=== PATIENT | male | born 1935 | race Caucasian/White ===

== ENCOUNTER → 2017-12-21 13:52 | Outpatient (CLI) | payer MEDICARE, OTHER, SELFPAY | PROVIDERS: Family Provider Internal Medicine; PCP Internal Medicine; Visit Provider Internal Medicine Cardiovascular Disease | DX: I11.9 Hypertensive heart disease without heart failure (principal); I35.2 Nonrheumatic aortic (valve) stenosis with insufficiency; I44.2 Atrioventricular block, complete; E78.5 Hyperlipidemia, unspecified | CPT/HCPCS: 93306 ==

== ENCOUNTER → 2018-02-08 14:31 | Outpatient (CLI) | payer MEDICARE, OTHER, SELFPAY ==
--- NOTE | 2018-02-08 14:36 | RAD_ITS ---
STUDY: X-RAY - ABDOMEN/PELVIS REASON FOR EXAM: Male, 82 years old. BOWEL INCONTINENCE X1 YR, NO OTHER COMPLAINTS TECHNIQUE: AP supine and upright views of the abdomen and pelvis. COMPARISON: None. FINDINGS: Normal visualized lung bases. There is an unremarkable bowel gas pattern. There is no demonstrated free abdominal air. The visualized liver, spleen and kidneys are grossly normal in size and morphology. Normal soft tissue structures. Normal visualized osseous structures. RAD/Abd Inc Decub and/or Erect IMPRESSION: Normal x-ray examination of the abdomen and pelvis. Electronically Signed: Patrick Lopez MD at 13:08 EDT Tel , Service support ,
[2018-02-08 17:17] LABS: Absolute Lymphocyte Count 1.95 X10^3/ul (0.83-4.51); Absolute Neutrophil Count 4.3 X10^3/uL (2.0-7.7); Basophil# 0.03 X10^3/uL; Basophil% 0.4 % (0-1); Eosinophil# 0.27 X10^3/uL; Eosinophils% 3.6 % (0-5); Hematocrit 40.9 % (40-54); Hemoglobin 13.6 g/dl (13.0-16.5); Lymphocyte # 1.95 X10^3/ul (4.0); Lymphocyte % 26.1 % (19-41); Mean Corp Hgb Conc 33.3 g/gl (32-36); Mean Corpuscular Hgb 33.5 pg (27.0-32.0); Mean Corpuscular Volume 100.7 fL (80-94); Mean Platelet Vol. 12.3 fl (6.2-12.0); Monocyte# 0.92 X10^3/uL; Monocyte% 12.3 % (0-10); Neutrophil # 4.28 X10^3/uL (2.7-7.7); Neutrophil % 57.3 % (47-70); Platelet Count 186 K/mm3 (150-450); RBC Distribution Width CV 15.1 % (11.6-14.6); RBC Distribution Width SD 55.6 fl (35.1-43.9); Red Blood Count 4.06 M/mm3 (4.6-6.2); White Blood Count 7.5 K/mm3 (4.4-11.0)
[2018-02-08 17:25] LABS: POSITIVE COUNT NO; POSITIVE DIFFERENTIAL NO; POSITIVE MORPHOLOGY NO
[2018-02-08 17:28] LABS: ALB/GLOB Ratio 0.9 RATIO (0.9-2.4); AST(SGOT) 21 U/L (15-37); Alanine Aminotransfer ALT/SGPT 19 U/L (16-61); Albumin, Serum 3.6 g/dL (3.2-5.0); Alkaline Phosphatase 73 U/L (45-117); Anion Gap 7 (5-15); BUN 12 mg/dL (7-18); BUN/Creat Ratio 15.1 RATIO (10-20); Calcium,Total 8.8 mg/dL (8.5-10.1); Chloride 107 mmol/L (98-107); EST Glomerular Filtration Rate 99 mL/min (>60); Est Glom Filt Rate - Afr Amer 120 mL/min (>60); Glucose 142 mg/dL (74-106); Potassium 4.3 mmol/L (3.5-5.1); Protein, Total 7.6 g/dL (6.4-8.2); Sodium Level 142 mmol/L (136-145); Vitamin D,25 Hydroxy 25.8 ng/mL (29.95-100.01)
== END ==
PROVIDERS: Family Provider Family Medicine Geriatric Medicine; PCP Family Medicine Geriatric Medicine; Referring Provider Family Medicine Geriatric Medicine; Visit Provider Family Medicine Geriatric Medicine
DX: E55.9 Vitamin D deficiency, unspecified (principal); I10 Essential (primary) hypertension; R15.9 Full incontinence of feces
CPT/HCPCS: 36415; 74019; 80053; 82306; 84443; 85025

== ENCOUNTER → 2018-02-14 08:07 | Outpatient (CLI) | payer MEDICARE, OTHER, SELFPAY ==
--- NOTE | 2018-02-14 08:15 | US_ITS ---
PROCEDURES: ULTRASOUND AORTA REASON FOR EXAM: Male, 82 years old. Evaluate for abdominal aortic aneurysm. TECHNIQUE: Ultrasound evaluation of the aorta was performed with real-time and static garcia-scale imaging. COMPARISON: None. FINDINGS: Proximal aorta 2.8 x 2.7 cm. Mid aorta 2.0 x 3.0 cm. Distal aorta 2.9 x 2.5 cm. Right common iliac 10 x 12 mm. Left common iliac 11 x 16 mm. Effort chronic plaque seen throughout the aorta and within the iliac arteries. On most recent prior CT imaging of the abdomen and pelvis of 2012 there was circumferential calcification of the wall of the aorta, calcification of the wall of the common iliac arteries. US/Aorta IMPRESSION: No evidence of aorto iliac aneurysm. Electronically Signed: Quinn Martinez, at 17:35 EDT Tel , Service support ,
== END ==
PROVIDERS: Family Provider Internal Medicine; PCP Internal Medicine; Referring Provider Family Medicine Geriatric Medicine; Visit Provider Family Medicine Geriatric Medicine
DX: I71.4 Abdominal aortic aneurysm, without rupture (principal)
CPT/HCPCS: 76775

== ENCOUNTER → 2018-04-03 13:16 | Outpatient (CLI) | payer MEDICARE, OTHER, SELFPAY ==
--- NOTE | 2018-04-03 13:25 | RAD_ITS ---
STUDY: X-RAY - LUMBAR SPINE REASON FOR EXAM: Male, 82 years old. Low back pain TECHNIQUE: 3 view(s) of the lumbar spine were obtained. COMPARISON: 02/08/2018 FINDINGS: Normal lumbar lordosis. There is no substantial scoliosis. There is a normal alignment of the vertebrae. There is multilevel endplate spondylosis of the lumbar vertebrae. There is multi-level degenerative disc disease with multi-level disc space narrowing. There is no demonstrated fracture. There is atherosclerotic calcification of the abdominal aorta without a demonstrated aneurysm. RAD/Lumbar Spine 2 or 3 Views IMPRESSION: Severe multilevel degenerative disc disease Electronically Signed: Oswald Cooper DO at 13:54 EST Tel , Service support ,
== END ==
PROVIDERS: Family Provider Internal Medicine; PCP Internal Medicine; Referring Provider Anesthesiology Pain Medicine; Visit Provider Anesthesiology Pain Medicine
DX: M51.36 Other intervertebral disc degeneration, lumbar region (principal)
CPT/HCPCS: 72100

== ENCOUNTER → 2018-05-15 13:42 | Outpatient (CLI) | payer MEDICARE, OTHER, SELFPAY ==
[2018-05-15 18:17] LABS: Absolute Lymphocyte Count 1.67 X10^3/ul (0.83-4.51); Absolute Neutrophil Count 4.4 X10^3/uL (2.0-7.7); Basophil# 0.04 X10^3/uL; Basophil% 0.5 % (0-1); Eosinophil# 0.47 X10^3/uL; Eosinophils% 6.1 % (0-5); Hematocrit 40.1 % (40-54); Lymphocyte # 1.67 X10^3/ul (4.0); Lymphocyte % 21.7 % (19-41); Mean Corp Hgb Conc 32.4 g/gl (32-36); Mean Corpuscular Volume 101.8 fL (80-94); Mean Platelet Vol. 11.9 fl (6.2-12.0); Monocyte# 1.04 X10^3/uL; Monocyte% 13.5 % (0-10); Neutrophil # 4.44 X10^3/uL (2.7-7.7); Neutrophil % 57.8 % (47-70); Platelet Count 242 K/mm3 (150-450); RBC Distribution Width CV 14.5 % (11.6-14.6); RBC Distribution Width SD 53.4 fl (35.1-43.9); Red Blood Count 3.94 M/mm3 (4.6-6.2); White Blood Count 7.7 K/mm3 (4.4-11.0)
[2018-05-15 18:23] LABS: POSITIVE COUNT NO; POSITIVE DIFFERENTIAL NO; POSITIVE MORPHOLOGY NO
[2018-05-15 18:30] LABS: ALB/GLOB Ratio 0.8 RATIO (0.9-2.4); AST(SGOT) 15 U/L (15-37); Alanine Aminotransfer ALT/SGPT 17 U/L (16-61); Albumin, Serum 3.5 g/dL (3.2-5.0); Alkaline Phosphatase 79 U/L (45-117); Anion Gap 8 (5-15); BUN 12 mg/dL (7-18); BUN/Creat Ratio 15.2 RATIO (10-20); Calcium,Total 8.8 mg/dL (8.5-10.1); Chloride 104 mmol/L (98-107); Creatinine, Serum 0.79 mg/dL (0.70-1.30); EST Glomerular Filtration Rate 100 mL/min (>60); Est Glom Filt Rate - Afr Amer 120 mL/min (>60); Globulin 4.2 g/dL (2.2-4.2); Glucose 125 mg/dL (74-106); Protein, Total 7.7 g/dL (6.4-8.2); Sodium Level 140 mmol/L (136-145); Thyroid Stim Hormone (TSH) 2.73 uIU/mL (0.358-3.74)
== END ==
PROVIDERS: Family Provider Internal Medicine; PCP Internal Medicine; Visit Provider Family Medicine Geriatric Medicine
DX: E55.9 Vitamin D deficiency, unspecified (principal); I10 Essential (primary) hypertension
CPT/HCPCS: 36415; 80053; 82306; 84443; 85025

== ENCOUNTER → 2018-05-19 15:06 | Outpatient (CLI) | payer MEDICARE, OTHER, SELFPAY ==
--- NOTE | 2018-05-19 15:09 | CT_ITS ---
STUDY: CT ABDOMEN AND PELVIS WITH CONTRAST REASON FOR EXAM: Male, 83 years old. Abdomen pain RADIATION DOSAGE (If Supplied By Facility): CTDIvol = ( 18.45 ) mGy, DLP = ( 1062.66 ) mGycm TECHNIQUE: Transaxial images were obtained from the dome of the diaphragm to the symphysis pubis without oral contrast. 100 ml of Isovue 300 contrast was administered. Sagittal and coronal images were reconstructed. Individualized dose optimization techniques were used for this CT. COMPARISON: None. FINDINGS: There are chronic interstitial fibrotic changes of the lung bases. The visualized portions of the heart are within normal limits. Normal liver. There is non-visualization of the gallbladder, which may be secondary to either contraction or a prior cholecystectomy. Normal spleen. Normal pancreas. Normal bilateral adrenal glands. Bilateral renal cysts are noted the largest measures 12 cm is in the right kidney. Normal visualized stomach. Normal small intestine. There are multiple colonic diverticula consistent with diverticulosis. There is thickening of the wall of the sigmoid colon may represent diverticulitis or neoplastic process. The appendix is visualized and appears normal. There is diffuse atherosclerotic calcification of the abdominal aorta with elongation and tortuosity, but without a demonstrated aneurysm. Normal inferior vena cava. Normal retroperitoneum. Normal urinary bladder. Normal abdominal wall. Normal . CT/Abdomen/Pelvis WITH Contrast IMPRESSION: There is thickening of the wall of the sigmoid colon may represent diverticulitis or neoplastic process. N.B. : Kat (YUDY), AA, confirmed on 05/22/2018 22:55:01 (ET) that the referring physician received the results and did not require a verbal consultation. Electronically Signed: Patrick Lopez MD at 3:55 EST Tel , Service support ,
== END ==
PROVIDERS: Family Provider Family Medicine Geriatric Medicine; PCP Family Medicine Geriatric Medicine; Referring Provider Family Medicine Geriatric Medicine; Visit Provider Family Medicine Geriatric Medicine
DX: R10.9 Unspecified abdominal pain (principal)
CPT/HCPCS: 74177; Q9967

== ENCOUNTER → 2018-05-25 13:24 | Outpatient (CLI) | payer MEDICARE, OTHER, SELFPAY ==
[2018-05-25 14:02] LABS: Absolute Lymphocyte Count 1.63 X10^3/ul (0.83-4.51); Absolute Neutrophil Count 7.5 X10^3/uL (2.0-7.7); Basophil# 0.01 X10^3/uL; Basophil% 0.1 % (0-1); Eosinophil# 0.02 X10^3/uL; Eosinophils% 0.2 % (0-5); Hematocrit 41.2 % (40-54); Hemoglobin 13.2 g/dl (13.0-16.5); Lymphocyte # 1.63 X10^3/ul (4.0); Lymphocyte % 16.2 % (19-41); Mean Corpuscular Hgb 32.5 pg (27.0-32.0); Mean Corpuscular Volume 101.5 fL (80-94); Mean Platelet Vol. 11.4 fl (6.2-12.0); Monocyte# 0.89 X10^3/uL; Monocyte% 8.8 % (0-10); Neutrophil # 7.47 X10^3/uL (2.7-7.7); Neutrophil % 74.2 % (47-70); Platelet Count 235 K/mm3 (150-450); RBC Distribution Width CV 14.6 % (11.6-14.6); RBC Distribution Width SD 54.1 fl (35.1-43.9); Red Blood Count 4.06 M/mm3 (4.6-6.2); White Blood Count 10.1 K/mm3 (4.4-11.0)
[2018-05-25 14:06] LABS: POSITIVE COUNT NO; POSITIVE DIFFERENTIAL NO; POSITIVE MORPHOLOGY NO
[2018-05-25 14:17] LABS: Anion Gap 9 (5-15); BUN 17 mg/dL (7-18); BUN/Creat Ratio 22.5 RATIO (10-20); Calcium,Total 9.1 mg/dL (8.5-10.1); Chloride 104 mmol/L (98-107); Creatinine, Serum 0.76 mg/dL (0.70-1.30); EST Glomerular Filtration Rate 105 mL/min (>60); Est Glom Filt Rate - Afr Amer 127 mL/min (>60); Glucose 169 mg/dL (74-106); Potassium 4.1 mmol/L (3.5-5.1); Sodium Level 139 mmol/L (136-145)
--- OUTSIDE RECORDS SUMMARY | 2018-07-30 07:55 | XMS RPT_ITS ---
:1935 Author Organization OHIP Support Name Relationship Address Phone BENITO XAVIER Unavailable Unavailable + [place] [address] R Unavailable Unavailable Unavailable ROBYN, BENITO Unavailable Unavailable + [place] [address] R Unavailable Unavailable Unavailable ROBYN, BENITO Unavailable Unavailable + [place] [address] R Unavailable Unavailable Unavailable ROBYN, BENITO Unavailable Unavailable + [place] [address] R Unavailable Unavailable Unavailable ROBYN, BENITO Unavailable Unavailable + [place] [address] R Unavailable Unavailable Unavailable ROBYN, BENITO Unavailable Unavailable + [place] [address] R Unavailable Unavailable Unavailable ROBYN, BENITO Unavailable Unavailable + [place] [address] R Unavailable Unavailable Unavailable R Unavailable Unavailable Unavailable R Unavailable Unavailable Unavailable ROBYN, LIV Unavailable [address] + [place] [address] R Unavailable Unavailable Unavailable R Unavailable Unavailable Unavailable ROBYN, LIV Unavailable [address] + [place] [address] ROBYN, BENITO Unavailable [address] + [address] [place] [address] R Unavailable Unavailable Unavailable ROBYN, LIV Unavailable [address] + [place] [address] ROBYN, BENITO Unavailable [address] + [address] [place] [address] R Unavailable Unavailable Unavailable ROBYN, LIV Unavailable [address] + [place] [address] ROBYN, BENITO Unavailable [address] [phone] [place] [address] R Unavailable Unavailable Unavailable Care Team Providers Name Role Phone STEVEN KOCH Attending Unavailable STEVEN KOCH Referring Unavailable KOCHSTEVEN GARCIA Attending Unavailable STEVEN KOCH H Referring Unavailable Kwaku, Bishop Chi Attending Unavailable Koch, Steven Primary Care Unavailable Kwaku, Bishop Chi Attending Unavailable Kwaku, Bishop Chi Referring Unavailable Kwaku, Bishop Chi Primary Care Unavailable Kwaku, Bishop Chi Attending Unavailable Kwaku, Bishop Chi Primary Care Unavailable Kwaku, Bishop Chi Attending Unavailable Kwaku, Bishop Chi Referring Unavailable Kwaku, Bishop Chi Primary Care Unavailable Vika Cotto Attending Unavailable Koch, Steven Referring Unavailable Karol Anderson Attending Unavailable Tobinispagerry, Ramirez Attending Unavailable Koch, Steven Referring Unavailable Koch, Steven Primary Care Unavailable Moodispagerry, Ramirez Attending Unavailable Moodispaw, Ramirez Referring Unavailable Koch, Steven Primary Care Unavailable Moodispaw, Ramirez Attending Unavailable Moodispaw, Ramirez Referring Unavailable Kwaku, Bishop Chi Attending Unavailable Kwaku, Bishop Chi Referring Unavailable Kwaku, Bishop Chi Primary Care Unavailable Kwaku, Bishop Chi Attending Unavailable Kwaku, Bishop Chi Referring Unavailable Koch, Steven Primary Care Unavailable Basali Ayman Attending Unavailable Basali, Ayman Referring Unavailable Koch, Steven Primary Care Unavailable Vika Cotto Attending Unavailable Armaan, Steven Referring Unavailable Armaan, Steven Primary Care Unavailable PROBLEMS PROBLEMS DATE TYPE CONDITION / CODE ATTENDING STATUS SOURCE 06/01/2018 Unknown K56.41 - Fecal Kwaku, Bishop Chi Active [place] impaction / Community K56.41(ICD-10) Hospital Repository 02/08/2018 Unknown R15.9 - Full Kwaku, Bishop Chi Active [place] incontinence of feces Community / R15.9(ICD-10) Hospital Repository 01/20/2018 Unknown R01.1 - Cardiac [place], Active [place] murmur, unspecified / [facility] R01.1(ICD-10) Hospital Repository 12/19/2017 Unknown 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 - [place], Active [place] 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, complete / Hospital I44.2(ICD-10) Repository 12/19/2017 Unknown I51.9 - Heart disease, [place], Active [place] unspecified / [facility] I51.9(ICD-10) Hospital Repository 12/19/2017 Unknown I35.2 - Nonrheumatic [place], Active [place] aortic (valve) [facility] stenosis with Hospital insufficiency / Repository I35.2(ICD-10) 12/19/2017 Unknown E78.5 - [place], Active [place] Hyperlipidemia, [facility] unspecified / Hospital E78.5(ICD-10) Repository 12/19/2017 Unknown I10 - Essential [place], Active [place] (primary) hypertension [facility] / I10(ICD-10) Hospital Repository 04/21/2015 Active 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, [place] unspecified / Repository E11.40(ICD-10) 09/28/2017 Active Diarrhea, unspecified NA Active [place] / R19.7(ICD-10) Clinic Main [place] Repository 12/15/2017 Unknown Z95.0 - 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 / Community Z95.0(ICD-10) Hospital Repository 12/15/2017 Unknown I49.9 - Cardiac Vika Cotto Active [place] arrhythmia, [facility] unspecified / Hospital I49.9(ICD-10) Repository PROCEDURES PROCEDURES No Procedure Records FoundRESULTS RESULTS ABD INC DECUB Observed: 06/01/2018 Status: F Source: [place] AND/OR ERECT 1:08 PM [facility] REPOSITORY [facility] Imaging Services [address] [place] [address] Abd Inc Decub and/or Erect MR#: [id number] Acct: [id number] Name: WILLIAM XAVIER Rep #: [id number] : 1935 M 83 From: Oswald Cooper DO PCP: Kwaku TOLEDO,[place] Status: REG CLI Study: Abd Inc Decub and/or Erect Date of Exam: 06/01/18 Exam# [id number] Ordering Dr: Bishop Ames MD STUDY: X-RAY - ABDOMEN/PELVIS REASON FOR EXAM: Male, 83 years old. Fecal impaction of the colon TECHNIQUE: AP supine and upright views of the abdomen and pelvis. COMPARISON: None. FINDINGS: Normal visualized lung bases. Nonspecific. Nonobstructive bowel gas pattern. Fecal retention throughout the colon. There is no demonstrated free abdominal air. The visualized liver, spleen and kidneys are grossly normal in size and morphology. Normal soft tissue structures. There are diffuse degenerative changes of the visualized lumbar spine. Mesh repair of hernia in the left lower pelvic region RAD/Abd Inc Decub and/or Erect IMPRESSION: Fecal retention in the colon. No evidence of free air. No evidence of small bowel obstruction. Electronically Signed: Oswald Cooper DO at 13:57 EST Tel , Service support , CC: Bishop Ames MD Fire Prevention Officer: Signed CBC W/DIFF, AUTOMATED Collected: 05/25/2018 Status: F Source: [place] 1:26 PM [facility] REPOSITORY TYPE CODE TESTS RESULT OUT OF RANGE REFERENCE UNITS LAB L100.1000 4.4-11.0 K/mm3 Normal WBC 10.1 LAB L100.1200 4.6-6.2 M/mm3 Low RBC 4.06 LAB L100.1300 13.0-16.5 g/dl Normal HGB 13.2 LAB L100.1400 40-54 % Normal HCT 41.2 LAB L100.1500 80-94 fL High MCV 101.5 LAB L100.1600 27.0-32.0 pg High MCH 32.5 LAB L100.1700 32-36 g/gl Normal MCHC 32.0 LAB L100.1810 11.6-14.6 % Normal RDW CV 14.6 LAB L100.1820 35.1-43.9 fl High RDW SD 54.1 LAB L100.1900 150-450 K/mm3 Normal PLT 235 LAB L100.2000 6.2-12.0 fl Normal MPV 11.4 LAB L100.2100 47-70 % High NEUT% 74.2 LAB L100.2200 19-41 % Low LY% 16.2 LAB L100.2300 0-10 % Normal MONO% 8.8 LAB L100.2400 0-5 % Normal EO% 0.2 LAB L100.2500 0-1 % Normal BASO% 0.1 LAB L100.2550 0.0-0.9 % Normal IM GRAN % 0.500 Result Comment: IG% - Immature Granulocytes (promyelocytes, myelocytes and metamyelocytes) > 1% indicates that a LEFT SHIFT is Present. LAB L100.2620 2.0-7.7 X10 3/uL Normal Absolute Neut 7.5 LAB L100.2720 0.83-4.51 X10 3/ul Normal Absolute Lymph 1.63 Performed By: #### L100.0100 #### [facility] [address] [place], [address] BASIC METABOLIC Collected: 05/25/2018 Status: F Source: [place] PROFILE (BMP) 1:26 PM [facility] REPOSITORY TYPE CODE TESTS RESULT OUT OF RANGE REFERENCE UNITS LAB L501.0100 74-106 mg/dL High GLU 169 Result Comment: Fasting Glucose result greater than or equal to 126 mg/dL suggests DIABETES MELLITUS per A.D.A. criteria. Please note revised GLUCOSE reference range effective 2017. LAB L501.1000 7-18 mg/dL Normal BUN 17 LAB L501.1100 0.70-1.30 mg/dL Normal CREAT,SERUM 0.76 Result Comment: The validity of the calculated GFR AND GFRAA in patients over 70 years has not been determined. Clinical correlation is essential. LAB L501.1110 >60 mL/min Normal EST GFR 105 Result Comment: Non- GFR Calc LAB L501.1115 >60 mL/min Normal EST GFR - AA 127 Result Comment: GFR Calc LAB L501.1300 10-20 RATIO High BUN/CRE 22.5 LAB L501.2200 8.5-10.1 mg/dL CA Normal 9.1 LAB L501.5300 136-145 mmol/L NA Normal 139 LAB L501.5600 3.5-5.1 mmol/L K Normal 4.1 LAB L501.5900 98-107 mmol/L CL Normal 104 LAB L501.6100 21.0-32.0 mmol/L Normal CO2 26.0 LAB L501.6200 5-15 Normal GAP 9 Performed By: #### L500.2500 #### [facility] [address] [place], [address] ABDOMEN/PELVIS WITH Observed: 05/19/2018 Status: F Source: [place] CONTRAST 3:11 PM [facility] REPOSITORY [facility] Imaging Services [address] [place] [address] Abdomen/Pelvis WITH Contrast MR#: [id number] Acct: [id number] Name: WILLIAM XAVIER Rep #: [id number] : 1935 83 From: Patrick Lopez MD PCP: Bishop Ames MD, Chi Status: REG CLI Study: Abdomen/Pelvis WITH Contrast Date of Exam: 05/19/18 Exam# [id number] Ordering Dr: Bishop Ames MD STUDY: CT ABDOMEN AND PELVIS WITH CONTRAST REASON FOR EXAM: Male, 83 years old. Abdomen pain RADIATION DOSAGE (If Supplied By Facility): CTDIvol = ( 18.45 ) mGy, DLP = ( 1062.66 ) mGycm TECHNIQUE: Transaxial images were obtained from the dome of the diaphragm to the symphysis pubis without oral contrast. 100 ml of Isovue 300 contrast was administered. Sagittal and coronal images were reconstructed. Individualized dose optimization techniques were used for this CT. COMPARISON: None. FINDINGS: There are chronic interstitial fibrotic changes of the lung bases. The visualized portions of the heart are within normal limits. Normal liver. There is non-visualization of the gallbladder, which may be secondary to either contraction or a prior cholecystectomy. Normal spleen. Normal pancreas. Normal bilateral adrenal glands. Bilateral renal cysts are noted the largest measures 12 cm is in the right kidney. Normal visualized stomach. Normal small intestine. There are multiple colonic diverticula consistent with diverticulosis. There is thickening of the wall of the sigmoid colon may represent diverticulitis or neoplastic process. The appendix is visualized and appears normal. There is diffuse atherosclerotic calcification of the abdominal aorta with elongation and tortuosity, but without a demonstrated aneurysm. Normal inferior vena cava. Normal retroperitoneum. Normal urinary bladder. Normal abdominal wall. Normal . CT/Abdomen/Pelvis WITH Contrast IMPRESSION: There is thickening of the wall of the sigmoid colon may represent diverticulitis or neoplastic process. N.B. : Kat (YUDY), AA, confirmed on 05/22/2018 22:55:01 (ET) that the referring physician received the results and did not require a verbal consultation. Electronically Signed: Patrick Lopez MD at 3:55 EST Tel , Service support , CC: Bishop Ames MD Fire Prevention Officer: Signed VITAMIN D,25 HYDROXY Collected: 05/15/2018 Status: F Source: [place] 1:44 PM [facility] REPOSITORY TYPE CODE TESTS RESULT OUT OF REFERENCE UNITS RANGE LAB L506.1000 29.95-100.01 ng/mL Low Vitamin D 26.0 25-OH Result Comment: Vitamin D 25(OH) Status Range Deficiency <20 ng/mL (50nmol/L) Insuffciency 20 - 30 ng/mL (50 - 75 nmol/L) Sufficiency 30 - 100 ng/mL (75 - 250 nmol/L) Toxicity >100 ng/mL (>250 nmol/L) Performed By: #### L506.1000 #### [facility] [place], [address] CBC W/DIFF, AUTOMATED Collected: 05/15/2018 Status: F Source: [place] 1:44 PM [facility] REPOSITORY TYPE CODE TESTS RESULT OUT OF RANGE REFERENCE UNITS LAB L100.1000 4.4-11.0 K/mm3 Normal WBC 7.7 LAB L100.1200 4.6-6.2 M/mm3 Low RBC 3.94 LAB L100.1300 13.0-16.5 g/dl Normal HGB 13.0 LAB L100.1400 40-54 % Normal HCT 40.1 LAB L100.1500 80-94 fL High MCV 101.8 LAB L100.1600 27.0-32.0 pg High MCH 33.0 LAB L100.1700 32-36 g/gl Normal MCHC 32.4 LAB L100.1810 11.6-14.6 % Normal RDW CV 14.5 LAB L100.1820 35.1-43.9 fl High RDW SD 53.4 LAB L100.1900 150-450 K/mm3 Normal PLT 242 LAB L100.2000 6.2-12.0 fl Normal MPV 11.9 LAB L100.2100 47-70 % Normal NEUT% 57.8 LAB L100.2200 19-41 % Normal LY% 21.7 LAB L100.2300 0-10 % High MONO% 13.5 LAB L100.2400 0-5 % High EO% 6.1 LAB L100.2500 0-1 % Normal BASO% 0.5 LAB L100.2550 0.0-0.9 % Normal IM GRAN % 0.400 Result Comment: IG% - Immature Granulocytes (promyelocytes, myelocytes and metamyelocytes) > 1% indicates that a LEFT SHIFT is Present. LAB L100.2620 2.0-7.7 X10 3/uL Normal Absolute Neut 4.4 LAB L100.2720 0.83-4.51 X10 3/ul Normal Absolute Lymph 1.67 Performed By: #### L100.0100 #### [facility] [address] [place], [place], [address] COMPREHENSIVE METABOLIC Collected: 05/15/2018 Status: F Source: [facility] 1:44 PM [facility] REPOSITORY TYPE CODE TESTS RESULT OUT OF RANGE REFERENCE UNITS LAB L501.0100 74-106 mg/dL High GLU 125 Result Comment: Fasting Glucose result from 100 to 125 mg/dL suggests IMPAIRED HOMEOSTASIS per A.D.A. criteria. Please note revised GLUCOSE reference range effective 2017. LAB L501.1000 7-18 mg/dL Normal BUN 12 LAB L501.1100 0.70-1.30 mg/dL Normal CREAT,SERUM 0.79 Result Comment: The validity of the calculated GFR AND GFRAA in patients over 70 years has not been determined. Clinical correlation is essential. LAB L501.1110 >60 mL/min Normal EST GFR 100 Result Comment: Non- GFR Calc LAB L501.1115 >60 mL/min Normal EST GFR - AA 120 Result Comment: GFR Calc LAB L501.1300 10-20 RATIO Normal BUN/CRE 15.2 LAB L501.1500 6.4-8.2 g/dL T Normal PROT 7.7 LAB L501.1800 3.2-5.0 g/dL Normal ALB 3.5 LAB L501.1950 2.2-4.2 g/dL Normal GLOB 4.2 LAB L501.2000 0.9-2.4 RATIO Low A/G 0.8 LAB L501.2200 8.5-10.1 mg/dL CA Normal 8.8 LAB L501.4100 15-37 U/L Normal AST 15 LAB L501.4305 45-117 U/L Normal ALK P 79 LAB L501.4405 16-61 U/L Normal ALT 17 LAB L501.4600 0.20-1.00 mg/dL T Normal BILI 0.40 LAB L501.5300 136-145 mmol/L NA Normal 140 LAB L501.5600 3.5-5.1 mmol/L K Normal 4.0 LAB L501.5900 98-107 mmol/L CL Normal 104 LAB L501.6100 21.0-32.0 mmol/L Normal CO2 28.0 LAB L501.6200 5-15 Normal GAP 8 Performed By: #### L500.4050, L501.9520 #### [facility] [address] [place], [place], [address] THYROID STIM HORMONE Collected: 05/15/2018 Status: F Source: [place] (TSH) 1:44 PM [facility] REPOSITORY TYPE CODE TESTS RESULT OUT OF RANGE REFERENCE UNITS LAB L501.9520 0.358-3.74 uIU/mL Normal TSH 2.73 Performed By: #### L500.4050, L501.9520 #### [facility] [address] [place], [place], [address] PROGRESS Observed: 05/05/2018 Status: COMPLETED Source: [place] 8:27 AM [facility] REPOSITORY HNO ID: [id number] Author: Saniya Alfred Service: (none) Author Type: Wrecking Car Driver Type: Progress Notes Filed: 05/05/2018 8:27 AM Note Text: Letter mailed to patient. PROGRESS Observed: 05/05/2018 Status: COMPLETED Source: [place] 8:24 AM [facility] REPOSITORY HNO ID: [id number] Author: Saniya Alfred Service: (none) Author Type: Wrecking Car Driver Type: Progress Notes Filed: 05/05/2018 8:27 AM Note Text: Left message for patient to return call 3rd attempt. Mailing letter. PROGRESS Observed: 05/03/2018 Status: COMPLETED Source: [place] 10:05 AM [facility] REPOSITORY HNO ID: [id number] Author: Saniya Alfred Service: (none) Author Type: Wrecking Car Driver Type: Progress Notes Filed: 05/05/2018 8:27 AM Note Text: Left message for patient to return call #[phone] PROGRESS Observed: 04/24/2018 Status: COMPLETED Source: [place] 11:09 AM [facility] REPOSITORY HNO ID: [id number] Author: Saniya Alfred Service: (none) Author Type: Wrecking Car Driver Type: Progress Notes Filed: 05/05/2018 8:27 AM Note Text: Left message for patient to return call #[phone] PROGRESS Observed: 04/24/2018 Status: COMPLETED Source: [place] 9:25 AM [facility] REPOSITORY HNO ID: [id number] Author: Saniya Alfred Service: (none) Author Type: Wrecking Car Driver Type: Progress Notes Filed: 05/05/2018 8:27 AM Note Text: [facility] CARE GAP REGISTRY DOCUMENTATION (OUTSIDE TEAMLET) Provider Action/FYI: PSR Action/FYI: - Schedule Physical Appointment (R/s) with labs prior - Discuss ASA Health Maintenance Due: DTAP,TDAP,TD(1 - Tdap) due on 06/11/2010 INFLUENZA(1) due on 01/07/2018 HBA1C due on 03/31/2018 - ordered URINE ALBUMIN:CREATININE RATIO due on 03/30/2018 - ordered LDL CHOLESTEROL due on 03/30/2018 - ordered DIABETIC FOOT EXAM due on 04/08/2018 Patient identified by name and date of . Last BP/Labs: Blood Pressure: Last 3 Encounter BP Readings: Date: BP: 10/05/2017 110/53 09/03/2017 138/70 04/07/2017 138/54 Lipids: Cholesterol, Total (mg/dL) Date Value 03/30/2017 116 10/08/2016 119 HDL Cholesterol (mg/dL) Date Value 03/30/2017 38 10/08/2016 43 LDL Cholesterol (mg/dL) Date Value 03/30/2017 55 10/08/2016 59 Triglyceride (mg/dL) Date Value 03/30/2017 117 10/08/2016 83 HGB A1C: Lab Results Component Value Date HBA1C 6.1 09/28/2017 HBA1C 6.3 03/30/2017 HBA1C 6.4 10/08/2016 TSH: TSH (uU/mL) Date Value 04/25/2014 4.650 ) ? Patient has the following care gap registry disease diagnosis:DM ? HTN ? Hyperlipidemia ? Patient has the following open care gaps: Health Maintenance Due: DTAP,TDAP,TD(1 - Tdap) due on 06/11/2010 INFLUENZA(1) due on 01/07/2018 HBA1C due on 03/31/2018 - ordered URINE ALBUMIN:CREATININE RATIO due on 03/30/2018 - ordered LDL CHOLESTEROL due on 03/30/2018 - ordered DIABETIC FOOT EXAM due on 04/08/2018 ? Last office visit: 10/05/2017 ? Future office visit:Physical with labs prior next available with PCP or it technician Saniya Alfred CMA CNPTOUTREACH Observed: 04/24/2018 Status: COMPLETED Source: [place] 12:00 AM [facility] REPOSITORY Patient Outreach (INTMWS) WILLIAM XAVIER ([id number]) 1935 M NFR Date Time Provider Department 04/24/18 SANIYA ALFRED) INTMWS During your visit today, we recorded the following information about you: Saniya Alfred CMA 05/05/2018 8:27 AM Signed [facility] CARE GAP REGISTRY DOCUMENTATION (OUTSIDE TEAMLET) Provider Action/FYI: PSR Action/FYI: - Schedule Physical Appointment (R/s) with labs prior - Discuss ASA Health Maintenance Due: DTAP,TDAP,TD(1 - Tdap) due on 06/11/2010 INFLUENZA(1) due on 01/07/2018 HBA1C due on 03/31/2018 - ordered URINE ALBUMIN:CREATININE RATIO due on 03/30/2018 - ordered LDL CHOLESTEROL due on 03/30/2018 - ordered DIABETIC FOOT EXAM due on 04/08/2018 Patient identified by name and date of . Last BP/Labs: Blood Pressure: Last 3 Encounter BP Readings: Date: BP: 10/05/2017 110/53 09/03/2017 138/70 04/07/2017 138/54 Lipids: Cholesterol, Total (mg/dL) Date Value 03/30/2017 116 10/08/2016 119 HDL Cholesterol (mg/dL) Date Value 03/30/2017 38 10/08/2016 43 LDL Cholesterol (mg/dL) Date Value 03/30/2017 55 10/08/2016 59 Triglyceride (mg/dL) Date Value 03/30/2017 117 10/08/2016 83 HGB A1C: Lab Results Component Value Date HBA1C 6.1 09/28/2017 HBA1C 6.3 03/30/2017 HBA1C 6.4 10/08/2016 TSH: TSH (uU/mL) Date Value 04/25/2014 4.650 ) ? Patient has the following care gap registry disease diagnosis:DM ? HTN ? Hyperlipidemia ? Patient has the following open care gaps: Health Maintenance Due: DTAP,TDAP,TD(1 - Tdap) due on 06/11/2010 INFLUENZA(1) due on 01/07/2018 HBA1C due on 03/31/2018 - ordered URINE ALBUMIN:CREATININE RATIO due on 03/30/2018 - ordered LDL CHOLESTEROL due on 03/30/2018 - ordered DIABETIC FOOT EXAM due on 04/08/2018 ? Last office visit: 10/05/2017 ? Future office visit:Physical with labs prior next available with PCP or it technician KAYLA Hall CMA 05/05/2018 8:27 AM Signed Left message for patient to return call #[phone] Saniya Alfred CMA 05/05/2018 8:27 AM Signed Left message for patient to return call #[phone] Saniya Alfred CMA 05/05/2018 8:27 AM Signed Left message for patient to return call 3rd attempt. Mailing letter. Saniya Alfred CMA 05/05/2018 8:27 AM Signed Letter mailed to patient. Allergies As of Date: 04/24/2018 (No Known Allergies) Date Reviewed: 10/05/2017 Reviewed by: Marissa Huerta LPN - Fully Assessed Reason for Visit: PHMA/Care Gap Outreach [0125] Prescriptions as of 04/24/2018 Sig: * CINNAMON 500 MG CAPSULE DOXAZOSIN 4 MG TABLET TAKE 1 TABLET BY MOUTH EVERY * FINASTERIDE 5 MG TABLET Take 1 tablet by mouth once d* FLUTICASONE 50 MCG/ACTUATION * Use 2 Sprays in each nostril * GABAPENTIN 300 MG CAPSULE Take 1 capsule by mouth daily* * GELATIN 600 MG CAPSULE Take by mouth. HYDROCORTISONE ACETATE 25 MG * 1 Suppository by RECTAL route* LOSARTAN 25 MG TABLET Take 1 tablet by mouth once d* METOPROLOL TARTRATE 50 MG TAB* Take 1 tablet by mouth twice * METRONIDAZOLE 0.75 % TOPICAL * Apply 1 application to affect* * MULTIPLE VITAMINS TABLET Take one(1) tablet daily. * OTC PRODUCT saw palmetto PRAVASTATIN 40 MG TABLET TAKE 1 TABLET BY MOUTH EVERY * * FIBER LAXATIVE (PSYLLIUM SEED* TRAMADOL 50 MG TABLET Take 1 tablet by mouth twice * Problem List As Of Date 04/24/2018 Noted Resolved Essential hypertension [I10] Mixed hyperlipidemia [E78.2] OVERWEIGHT [E66.9] Diverticulosis of colon (without mention of hem* 06/10/2010 ROSACEA [L71.9] Irritable bowel syndrome [K58.9] 04/07/2017 BPH W/O URINARY OBS/LUTS [N40.0] INVALID FOR*06/22/2007 Chronic rhinitis [J31.0] INVALID FOR*06/10/2010 PROSTATIC DISORDER NOS [N42.9] INVALID FOR*06/22/2007 BPH with urinary obstruction [N40.1, N13.8] INVALID FOR*10/05/2017 Bladder neck obstruction [N32.0] INVALID FOR*10/20/2016 Impaired fasting glucose [R73.01] INVALID FOR*03/07/2014 Family history of diabetes mellitus [Z83.3] INVALID FOR*06/10/2010 Aortic valve stenosis [I35.0] INVALID FOR* ONYCHOMYCOSIS [B35.1] INVALID FOR*06/10/2010 Backache, unspecified [M54.9] INVALID FOR*06/10/2010 Other seborrheic keratosis [L82.1] INVALID FOR*06/10/2010 Other psoriasis [L40.8] INVALID FOR*06/10/2010 Hemorrhage of rectum and anus [K62.5] INVALID FOR*12/08/2011 Abdominal pain, left upper quadrant [R10.12] INVALID FOR*12/08/2011 Impotence [N52.9] INVALID FOR*04/07/2017 Elevated PSA [R97.20] INVALID FOR*04/07/2017 Complete heart block (HCC) [I44.2] INVALID FOR* More... Carotid stenosis, left [I65.22] INVALID FOR* More... Lumbago [M54.5] INVALID FOR* Type 2 diabetes, controlled, with neuropathy (H*INVALID FOR* Neuropathy (HCC) [G62.9] INVALID FOR*04/07/2017 Dysuria [R30.0] INVALID FOR*10/20/2016 Benign non-nodular prostatic hyperplasia with l*INVALID FOR* Elevated prostate specific antigen (PSA) [R97.2*INVALID FOR*10/20/2016 Abdominal aortic aneurysm (AAA) without rupture*INVALID FOR* Letter Text Internal Medicine [place] [address] [facility] [address] Dept: [phone] Dept Saniya Alfred [facility], Population Health M.A. May 05, 2018 William Xavier [address] [facility] [address] Dear Mr. Xavier In an effort to serve your healthcare needs, it has come to the attention of Steven Koch MD, your Primary Care Provider, that you are overdue for routine health care. We've attempted to contact you and have been unsuccessful. Please call the office at [phone] to schedule an appointment for Physical. In addition, you are due for the following health maintenance(s) Health Maintenance Due: DTAP,TDAP,TD(1 - Tdap) due on 06/11/2010 INFLUENZA(1) due on 01/07/2018 URINE ALBUMIN:CREATININE RATIO due on 03/30/2018 LDL CHOLESTEROL due on 03/30/2018 HBA1C due on 03/31/2018 DIABETIC FOOT EXAM due on 04/08/2018 If any of these routine health care items were completed by an outside facility, please have that office fax the results to [phone] Attn: Steven Koch MD or bring the records with you to your appointment. We will gladly update your record. If you have any questions, please feel free to call the office at [phone] or message us via Kenze[employer]. Thank you for choosing the [facility]. Sincerely, Saniya Alfred CMA, [facility] M.A. (electronically signed to expedite mailing) Encounter Status:Closed by SANIYA ALFRED CMA on 05/05/18 LUMBAR SPINE 2 OR 3 Observed: 04/03/2018 Status: F Source: [place] VIEWS 1:25 PM [facility] REPOSITORY [facility] Imaging Services [address] [place] [address] 15192 Lumbar Spine 2 or 3 Views MR#: [id number] Acct: [id number] Name: WILLIAM XAVIER Rep #: [id number] : 1935 82 From: Oswald Cooper DO PCP: Steven Koch MD Status: REG CLI Study: Lumbar Spine 2 or 3 Views Date of Exam: 04/03/18 Exam# [id number] Ordering Dr: Eugenio Saleh MD STUDY: X-RAY - LUMBAR SPINE REASON FOR EXAM: Male, 82 years old. Low back pain TECHNIQUE: 3 view(s) of the lumbar spine were obtained. COMPARISON: 02/08/2018 FINDINGS: Normal lumbar lordosis. There is no substantial scoliosis. There is a normal alignment of the vertebrae. There is multilevel endplate spondylosis of the lumbar vertebrae. There is multi-level degenerative disc disease with multi-level disc space narrowing. There is no demonstrated fracture. There is atherosclerotic calcification of the abdominal aorta without a demonstrated aneurysm. RAD/Lumbar Spine 2 or 3 Views IMPRESSION: Severe multilevel degenerative disc disease Electronically Signed: Oswald DO Kenneth at 13:54 EST Tel , Service support , CC: Eugenio Saleh MD; Steven Koch MD Fire Prevention Officer: Signed AORTA Observed: 02/14/2018 Status: F Source: [place] 8:15 AM [facility] REPOSITORY [facility] Imaging Services [address] [place] [address] Aorta MR#: [id number] Acct: [id number] Name: WILLIAM XAVIER Rep #: [id number] : 1935 M 82 From: Quinn Martinez MD PCP: Steven Koch MD Status: REG CLI Study: Aorta Date of Exam: 02/14/18 Exam# [id number] Ordering Dr: Bishop Ames MD PROCEDURES: ULTRASOUND AORTA REASON FOR EXAM: Male, 82 years old. Evaluate for abdominal aortic aneurysm. TECHNIQUE: Ultrasound evaluation of the aorta was performed with real-time and static garcia-scale imaging. COMPARISON: None. FINDINGS: Proximal aorta 2.8 x 2.7 cm. Mid aorta 2.0 x 3.0 cm. Distal aorta 2.9 x 2.5 cm. Right common iliac 10 x 12 mm. Left common iliac 11 x 16 mm. Effort chronic plaque seen throughout the aorta and within the iliac arteries. On most recent prior CT imaging of the abdomen and pelvis of 2012 there was circumferential calcification of the wall of the aorta, calcification of the wall of the common iliac arteries. US/Aorta IMPRESSION: No evidence of aorto iliac aneurysm. Electronically Signed: Quinn Martinez, at 17:35 EDT Tel , Service support , CC: Bishop Ames MD; Steven Koch MD Fire Prevention Officer: Signed CBC W/DIFF, AUTOMATED Collected: 02/08/2018 Status: F Source: [place] 3:42 PM [facility] REPOSITORY TYPE CODE TESTS RESULT OUT OF RANGE REFERENCE UNITS LAB L100.1000 4.4-11.0 K/mm3 Normal WBC 7.5 LAB L100.1200 4.6-6.2 M/mm3 Low RBC 4.06 LAB L100.1300 13.0-16.5 g/dl Normal HGB 13.6 LAB L100.1400 40-54 % Normal HCT 40.9 LAB L100.1500 80-94 fL High MCV 100.7 LAB L100.1600 27.0-32.0 pg High MCH 33.5 LAB L100.1700 32-36 g/gl Normal MCHC 33.3 LAB L100.1810 11.6-14.6 % High RDW CV 15.1 LAB L100.1820 35.1-43.9 fl High RDW SD 55.6 LAB L100.1900 150-450 K/mm3 Normal PLT 186 LAB L100.2000 6.2-12.0 fl High MPV 12.3 LAB L100.2100 47-70 % Normal NEUT% 57.3 LAB L100.2200 19-41 % Normal LY% 26.1 LAB L100.2300 0-10 % High MONO% 12.3 LAB L100.2400 0-5 % Normal EO% 3.6 LAB L100.2500 0-1 % Normal BASO% 0.4 LAB L100.2550 0.0-0.9 % Normal IM GRAN % 0.300 Result Comment: IG% - Immature Granulocytes (promyelocytes, myelocytes and metamyelocytes) > 1% indicates that a LEFT SHIFT is Present. LAB L100.2620 2.0-7.7 X10 3/uL Normal Absolute Neut 4.3 LAB L100.2720 0.83-4.51 X10 3/ul Normal Absolute Lymph 1.95 Performed By: #### L100.0100 #### [facility] [address] [place], [address] VITAMIN D,25 HYDROXY Collected: 02/08/2018 Status: F Source: [place] 3:42 PM [facility] REPOSITORY TYPE CODE TESTS RESULT OUT OF REFERENCE UNITS RANGE LAB L506.1000 29.95-100.01 ng/mL Low Vitamin D 25.8 25-OH Result Comment: Vitamin D 25(OH) Status Range Deficiency <20 ng/mL (50nmol/L) Insuffciency 20 - 30 ng/mL (50 - 75 nmol/L) Sufficiency 30 - 100 ng/mL (75 - 250 nmol/L) Toxicity >100 ng/mL (>250 nmol/L) Performed By: #### L506.1000 #### [facility] [address] [place], [id number] COMPREHENSIVE METABOLIC Collected: 02/08/2018 Status: F Source: [facility] 3:42 PM [facility] REPOSITORY TYPE CODE TESTS RESULT OUT OF RANGE REFERENCE UNITS LAB L501.0100 74-106 mg/dL High GLU 142 Result Comment: Fasting Glucose result greater than or equal to 126 mg/dL suggests DIABETES MELLITUS per A.D.A. criteria. Please note revised GLUCOSE reference range effective 2017. LAB L501.1000 7-18 mg/dL Normal BUN 12 LAB L501.1100 0.70-1.30 mg/dL Normal CREAT,SERUM 0.80 Result Comment: The validity of the calculated GFR AND GFRAA in patients over 70 years has not been determined. Clinical correlation is essential. LAB L501.1110 >60 mL/min Normal EST GFR 99 Result Comment: Non- GFR Calc LAB L501.1115 >60 mL/min Normal EST GFR - AA 120 Result Comment: GFR Calc LAB L501.1300 10-20 RATIO Normal BUN/CRE 15.1 LAB L501.1500 6.4-8.2 g/dL T Normal PROT 7.6 LAB L501.1800 3.2-5.0 g/dL Normal ALB 3.6 LAB L501.1950 2.2-4.2 g/dL Normal GLOB 4.0 LAB L501.2000 0.9-2.4 RATIO Normal A/G 0.9 LAB L501.2200 8.5-10.1 mg/dL CA Normal 8.8 LAB L501.4100 15-37 U/L Normal AST 21 LAB L501.4305 45-117 U/L Normal ALK P 73 LAB L501.4405 16-61 U/L Normal ALT 19 LAB L501.4600 0.20-1.00 mg/dL T Normal BILI 0.60 LAB L501.5300 136-145 mmol/L NA Normal 142 LAB L501.5600 3.5-5.1 mmol/L K Normal 4.3 LAB L501.5900 98-107 mmol/L CL Normal 107 LAB L501.6100 21.0-32.0 mmol/L Normal CO2 28.0 LAB L501.6200 5-15 Normal GAP 7 Performed By: #### L500.4050, L501.9520 #### [facility] [address] [facility] [place], [address] THYROID STIM HORMONE Collected: 02/08/2018 Status: F Source: [place] (TSH) 3:42 PM [facility] REPOSITORY TYPE CODE TESTS RESULT OUT OF RANGE REFERENCE UNITS LAB L501.9520 0.358-3.74 uIU/mL Normal TSH 3.30 Performed By: #### L500.4050, L501.9520 #### [facility] [address] [place], [address] ABD INC DECUB Observed: 02/08/2018 Status: F Source: [place] AND/OR ERECT 2:36 PM [facility] REPOSITORY [facility] Imaging Services [address] [place] [address] Abd Inc Decub and/or Erect MR#: [id number] Acct: [id number] Name: WILLIAM XAVIER Rep #: [id number] : 1935 M 82 From: Patrick Lopez MD PCP: Bishop Ames MD, Chi Status: REG CLI Study: Abd Inc Decub and/or Erect Date of Exam: 02/08/18 Exam# [id number] Ordering Dr: Bishop Ames MD STUDY: X-RAY - ABDOMEN/PELVIS REASON FOR EXAM: Male, 82 years old. BOWEL INCONTINENCE X1 YR, NO OTHER COMPLAINTS TECHNIQUE: AP supine and upright views of the abdomen and pelvis. COMPARISON: None. FINDINGS: Normal visualized lung bases. There is an unremarkable bowel gas pattern. There is no demonstrated free abdominal air. The visualized liver, spleen and kidneys are grossly normal in size and morphology. Normal soft tissue structures. Normal visualized osseous structures. RAD/Abd Inc Decub and/or Erect IMPRESSION: Normal x-ray examination of the abdomen and pelvis. Electronically Signed: Patrick Lopez MD at 13:08 EDT Tel , Service support , CC: Bishop Ames MD Fire Prevention Officer: Signed ECHOCARDIOGRAM COMPLETE Observed: 12/21/2017 Status: F Source: [place] 6:21 PM [facility] REPOSITORY [facility] Cardiovascular Services [address] [place] [address] Echo Complete 12/21/17 1353 MR#: [id number] Acct: [id number] Name: WILLIAM XAVIER Rep #: [id number] : 1935 82 From: Ramirez Toth MD Attending Dr: Ramirez Toth MD Status: REG CLI Ordering Dr: Ramirez Toth MD Date: 12/21/17 Location: [facility] Sex: M C Admitted: Reason For Study: Murmur Procedure This was a 2D Doppler, Color Flow transthoracic echocardiogram. The study was technically difficult. Exam performed in department. Left Ventricle Normal LV size. Moderate concentric left ventricular hypertrophy. Left ventricular systolic function is normal. The estimated ejection fraction is 55 %. There is evidence of diastolic dysfunction. No regional wall motion abnormalities noted. Right Ventricle Normal RV size. ICD or pacer leads identified within the right ventricle. Normal systolic function. Atria The left atrium is moderately enlarged. Normal right atrium. ICD or pacer leads identified within the right atrium. No doppler evidence for ASD. Mitral Valve There is moderate to severe mitral annular calcification. Extension of the mitral annular calcification onto the mitral valve leaflets. Mild-Moderate mitral valve stenosis. Trivial mitral valve insufficiency. Tricuspid Valve Normal tricuspid valve. Mild tricuspid valve insufficiency. Right ventricular systolic pressure estimated to be 33 mmHg. Aortic Valve The aortic valve is not well visualized. Moderate focal aortic valve calcification. Mild to moderate aortic stenosis. Mild (1+) aortic valve insufficiency. Pulmonic Valve The pulmonic valve is not well visualized. Great Vessels Borderline enlarged aortic root. Pericardium/Pleural No pericardial effusion. MMode/2D Measurements AND Calculations LVIDd: 4.2 cm IVSd: 1.9 cm LVOT diam: 2.0 cm LVIDs: 2.9 cm LVPWd: 1.5 cm LVOT area: 3.1 cm2 RVDd: 2.8 cm FS: 31.3 % Ao root diam: 3.9 cm LAV(MOD-bp): 80.8 ml LA A4 area: 24.7 cm2 ACS: 0.43 cm LAV(MOD-bp) Indexed: 40.2 ml/m2 LAV(MOD-sp2): 92.8 ml LAV(MOD-sp4): 68.6 ml Time Measurements MV dec time: 0.25 sec Doppler Measurements AND Calculations MV E max asif: 94.5 cm/sec Med Peak E' Asif: 4.3 cm/sec MV V2 max: 166.0 cm/sec MV A max asif: 145.4 cm/sec E/E' med: 22.2 MV max P.0 mmHg MV E/A: 0.65 MV V2 mean: 95.2 cm/sec MV mean P.2 mmHg MV V2 VTI: 53.9 cm MVA(VTI): 1.8 cm2 MV P1/2t max asif: 120.1 cm/sec Ao V2 max: 289.0 cm/sec AI max asif: 400.5 cm/sec MV P1/2t: 144.4 msec Ao max P.5 mmHg AI max P.2 mmHg MV dec slope: 243.5 cm/sec2 Ao V2 mean: 187.5 cm/sec AI dec slope: 209.3 cm/sec2 MVA(P1/2t): 1.5 cm2 Ao mean P.5 mmHg AI P1/2t: 560.3 msec Ao V2 VTI: 65.6 cm MICHELLE(I,D): 1.5 cm2 MICHELLE(V,D): 1.4 cm2 LV V1 max: 129.1 cm/sec SV(LVOT): 99.4 ml PA V2 max: 178.9 cm/sec LV V1 max P.7 mmHg LV V1 mean P.3 mmHg LV V1 mean: 83.4 cm/sec LV V1 VTI: 31.9 cm TR max asif: 274.7 cm/sec TR max P.2 mmHg Interpretation Summary The study was technically difficult. Left ventricular systolic function is normal. The estimated ejection fraction is 55 %.. Moderate concentric left ventricular hypertrophy. The left atrium is moderately enlarged. There is moderate to severe mitral annular calcification. Extension of the mitral annular calcification onto the mitral valve leaflets. Mild-Moderate mitral valve stenosis. Trivial mitral valve insufficiency. Mild tricuspid valve insufficiency. Mild to moderate aortic stenosis. Mild (1+) aortic valve insufficiency. Borderline enlarged aortic root. Right ventricular systolic pressure estimated to be 33 mmHg. There is evidence of diastolic dysfunction. Ordering Physician: Ramirez Toth Referring Physician: Ramirez Toth Performed By: Preston Borja RCS 12/21/17 1820 Date Ramirez Toth MD CC: Ramirez Toth MD; Steven Koch MD Date Dictated: 12/21/17 1353 Date Transcribed: 12/21/171819 Fire Prevention Officer: Signed CARDIOLOGY VISIT Observed: 12/19/2017 Status: F Source: [place] REPORT 4:51 PM [facility] REPOSITORY [facility] [address] [place] [address] OFFICE VISIT Date of Service: 12/19/17 MR#: [id number] Acct: [id number] Name: WILLIAM XAVIER Rep #: [id number] : 1935 Provider: Ramirez Toth MD Age/Sex: 82/M Location: [facility] Status: Signed HPI HPI Details: WILLIAM XAVIER, is a 82 M who presents to the office today for for outpatient cardiovascular follow-up of his history of underlying valvular heart disease with aortic valve stenosis, conduction system disease status post permanent pacemaker placement, superimposed on hyperlipidemia and hypertension. He notes overall his main concern is that he does get short of breath and dyspneic more so with activity than at rest. He denies orthopnea or PND. He does have trace to mild bilateral ankle edema. There has been no near syncope or syncope. 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 Intake Vital Signs12/19/17 Height 5 ft 9 in 12/19/17 Weight: 187 lb 12/19/17 Body Mass Index (BMI) 27.6 12/19/17 Blood Pressure 132/58 Intake Visit Reasons: 6 M FU Allergies No Known Allergies Allergy (Unverified 12/19/17 13:43) Medications metoprolol tartrate 50 mg tablet 50 mg PO BID #180 tab 10/20/17 [Rx Confirmed 12/19/17] doxazosin 4 mg tablet 4 mg PO QDAY 12/15/17 [History Confirmed 12/19/17] etodolac 500 mg tablet 500 mg PO QDAY PRN tab 12/15/17 [History Confirmed 12/19/17] finasteride 5 mg tablet 5 mg PO QDAY 12/15/17 [History Confirmed 12/19/17] gabapentin 300 mg capsule 300 mg PO QDAY 12/15/17 [History Confirmed 12/19/17] losartan 25 mg tablet 25 mg PO QDAY 12/15/17 [History Confirmed 12/19/17] multivitamin tablet 1 tab PO QDAY 12/15/17 [History Confirmed 12/19/17] [facility] Medical History Diastolic dysfunction (Acute) 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) Carotid stenosis, left (Chronic) Hyperlipidemia (Chronic) Presence of permanent cardiac pacemaker (Chronic 07/30/11) Atrioventricular block, complete (Acute) Cardiac dysrhythmia (Chronic) HTN (hypertension) (Chronic) BPH (benign prostatic hyperplasia) (Chronic) Diverticulitis (Chronic) Surgical History History of cystoscopy (Resolved) History of incisional hernia repair (Resolved) History of laparoscopic cholecystectomy (Resolved) History of splenectomy (Resolved) Family History Father CVA (cerebral vascular accident) Mother Diabetes Brother CAD (coronary artery disease) Prostate cancer Brother CAD (coronary artery disease) Social History Smoking Status: Former smoker alcohol intake: never substance use type: does not use ROS Const Const: Negative for fatigue, weakness, weight gain, weight loss, frequent falls or excessive sweating Eyes Eyes: Negative for change in vision, blurry vision or transient loss of vision ENT ENT: Negative for dizziness or balance problems Cardio Chest Pain: No Palpitations: No Edema: Bilateral (slight) Muscle aches with walking: None Resp Respiratory: Positive for SOB with activity (slight) and SOB orthopnea\SOB lying down (cant get enough oxygen) GI GI: Negative vomiting or vomiting blood/hematemesis : Negative for hematuria Musc Musc: Positive for muscle aches/ myalgia (bilateral hip pain); negative for balance problems, muscle weakness or joint pain Skin Skin: Negative non-healing lesions or rash Neuro Neuro: Negative for weakness, blurry vision, dizziness, lightheadedness, frequent falls or orthostatic symptoms Saad Hematologic/Lymphatic: Negative for easy bleeding Endo Endo: Negative for fatigue or excessive sweating Psych Psych: Negative for anxiety or depression Allergy Allergy/Immunology: Negative for hives, Negative for rash Cardiology Exam Const Appearance: cooperative, healthy appearing, comfortable, no acute distress, well developed and well groomed Nutritional Appearance: average body habitus Orientation: alert, awake and oriented x3 Head Head: normal to inspection, normocephalic and atraumatic Ears: hearing grossly normal bilaterally Nose: external nose normal Face and Sinus: face symmetric Teeth and gingiva: fair dentition Eyes Eyelids: eyelids normal Conjunctivae: conjunctivae normal Pupils: PERRL EOM: EOM intact bilaterally Neck Neck: normal visual inspection and full ROM Carotids: normal carotid upstroke Chest Chest inspection: normal inspection of the chest and symmetric chest movement Auscultation: Bilateral: Clear to Auscultation Cardio Palpation: normal PMI Rate: regular rate Rhythm: regular rhythm Heart sounds: S1 normal and S2 normal Murmur: Grade 3/6, harsh, mid systolic, LLSB, LVOT and sternal notch GI GI: normal to inspection, bowel sounds present and soft Neuro General: alert, awake and oriented x3 Skin Skin: no rashes or lesions noted Extremities Pulses: Normal: Right Radial Pulse, Left Radial Pulse Lower Extremity Edema: Trace: Bilateral Psych Psychological: normal affect Supplemental Info He did have a transthoracic echocardiogram on . The results are as noted below. Interpretation Summary Normal LV size. Mild concentric left ventricular hypertrophy. Left ventricular systolic function is normal. The estimated ejection fraction is 60 %. Transmitral and pulmonary venous doppler flow suggestive of impaired relaxation of left ventricle Pulmonary artery systolic pressure is 32 mmHg. Compared to prior study, there is no significant change. He had a trans-esophageal echocardiogram performed at [facility] on 09/21/2011. The result is as noted below Final impressions: Mural Valve The mitral leaflets are mildly thickened. Mild (1.) mitral valve regurgitation Aortic Valve The aortic valve leaflets are mildly thickened, Moderate (2+) aortic valve regurgitation. 1112 time was 433 msec Mild aortic valve stenosis. The estimated aortic valve area is 1 8 crn2 by continuity method. The estimated aerlic valve area is 1,7 cm2 by planimetry. Tricuspid Valve RVSP could not be reliably estimated due to limited Doppler signal across the tricuspid valve. Left Ventricle Normal left ventricular size and systolic function. No regional wall motion abnormalities. LVEF is 55-60% % by visual estimation. He had a stress test performed on 09/27/2014 at [facility]. The results are as noted below. EXERCISE TOLERANCE TEST: The patient underwent pharmacologic (regadenoson) evaluation with a peak heart rate of 104 beats per minute (73% predicted maximum heart rate) and a peak blood pressure of 158/80 mmHg. The baseline ECG demonstrated sinus bradycardia with AV synchronous pacing. The peak pharmacologic ECG demonstrated sinus bradycardia with intermittent ventricular pacing. There were no cardiac dysrhythmias pretest, during pharmacologic infusion, and an occasional intermittent ventricular paced rhythm in recovery. There was no report of chest discomfort during pharmacologic infusion or recovery. The examination was discontinued secondary to completion of protocol. IMPRESSION: 1. Pharmacologic (regadenoson) evaluation 2. Peak pharmacologic ECG with no obvious ECG changes. 3. Cardiac rhythm compatible with underlying sinus rhythm with intermittent AV synchronous pacing. 4. Nuclear images pending. MYOCARDIAL PERFUSION IMAGING STUDY: TECHNIQUE: The patient was injected with 11.8 mCi of Tc99m Cardiolite and subsequent rest SPECT Cardiolite nuclear imaging was obtained in the horizontal long, vertical long, and short axes views. The patient underwent pharmacologic (regadenoson) evaluation with a peak heart rate of 104 beats per minute (73% predicted maximum heart rate) and a peak blood pressure of 158/80 mmHg. The patient was injected with 34.7 mCi of Tc99m Cardiolite and subsequently stress SPECT Cardiolite nuclear imaging was obtained in the horizontal long, vertical long, and short axes views. A gated Cardiolite study at peak stress was not obtained. INTERPRETATION: Rest and stress SPECT Cardiolite nuclear imaging both demonstrate diminished tracer uptake in portions of the basal inferoseptal and basal inferior segments as well as a small area of subtle diminished tracer uptake in the lateral apical segments. These findings are without significant change between rest and stress. There are similar type findings on the resting and stress polar map images. The aforementioned changes appear compatible with the effects of soft tissue attenuation/artifact and physiologic apical thinning with no myocardial perfusion changes considered diagnostic for stress induced myocardial ischemia or previous myocardial injury/infarction. IMPRESSION: 1. Rest and stress SPECT Cardiolite nuclear imaging demonstrate myocardial perfusion changes appearing compatible with the effects of soft tissue attenuation/artifact and physiologic apical thinning with no myocardial perfusion changes considered diagnostic for stress induced myocardial ischemia or previous myocardial injury/infarction. 2. A gated Cardiolite study at peak stress was not obtained. He has a [employer] Versa model number VEDR01 serial number MW [id number] implanted on 07/30/2011 as a dual-chamber pacemaker for diagnosis of complete heart block Assessment AND Plan 1. Nonrheumatic aortic (valve) stenosis with insufficiency I35.2 Plan At the present time it is unclear whether his shortness of breath and dyspnea is related to his underlying aortic valve disease process. He will have this reassessed with a follow-up transthoracic echocardiogram to look for progression of disease that needs further evaluation and work Orders Orders: 2. Complete AV block I44.2 Plan He does have a history of complete heart block. He has a permanent pacemaker in place. It has been assessed and is been found to be functioning appropriately Orders Orders: 3. Hyperlipidemia, unspecified hyperlipidemia type E78.5 Plan He states his primary care physician is following his lipids. A copy would be appreciated for continuity of here. Orders Orders: 4. Essential hypertension I10 Plan He has blood pressure appears to be reasonably well controlled. He will continue medical management and follow-up Orders Orders: Plan Detail Additional Comments The above was discussed with the patient. He was agreeable to this approach. Thank you for allowing me to participate in the care of your patient. Please don't hesitate to call if any issues arise. This note was generated using a voice recognition system and there may be incorrect words, spelling or punctuation that were not noted when reviewing the office note prior to saving. Follow Up 1 Year (PFM) Coding Level of Care Code Off vis,est,level 4 Diagnoses Nonrheumatic aortic (valve) stenosis with insufficiency I35.2 Complete AV block I44.2 Hyperlipidemia, unspecified hyperlipidemia type E78.5 Hyperlipidemia type: unspecified Essential hypertension I10 Hypertension type: essential hypertension Coding Level of Care Code Off vis,est,level 4 Diagnoses Nonrheumatic aortic (valve) stenosis with insufficiency I35.2 Complete AV block I44.2 Hyperlipidemia, unspecified hyperlipidemia type E78.5 Hyperlipidemia type: unspecified Essential hypertension I10 Hypertension type: essential hypertension 12/19/17 1651 <Electronically signed by Ramirez Toth MD> Date Ramirez Toth MD Cosigner Signature: Date (if applicable) CC: Steven Koch MD PACEMAKER CHECK Observed: 10/17/2017 Status: F Source: [place] 8:39 AM [facility] REPOSITORY [facility] [address] [place] [address] Pacemaker Check Date of Service: 09/22/17 1538 MR#: [id number] Acct: [id number] Name: WILLIAM XAVIER Justina Rep #: [id number] : 1935 From: Vika Cotto Age/Sex: 82/M Location: [facility] Status: Signed Comments Summary Comments: Remote Dual Chamber Pacemaker Evaluation: See attached scanned Carelink report. Remote interrogation shows 3 MS episodes, <0.1% and 2 VHR episodes since 07/06/16, longest ventricular HR episode 04/30/17 for approx 4 secs. Stored markers show VHR@ 200 bpm x 11 beats. Presenting e-gram shows AV sequential paced @ 66 ppm. BOTTOM MAN=84%. Battery longevity approx 5 yrs. Lead impedances, atrial sensing and adaptive pace/sense thresholds remain stable. Normal remote PPM function. Pt notified remote transmission received and next f/u appt scheduled for in 3 mos. Device Device Date Interviewed: 09/20/17 Follow-up Location: remote Interview Reason: scheduled follow up [employer]: [employer] Name: Versa Model: VEDR01 Serial #: [id number] Implant Date: 07/30/11 Year(s): 6 Implant Physician: Dr. Jossie Irizarry Patient Characteristics AV/Node Indication: Complete heart block Ventricular Indication: Nonsustained VT Ejection fraction %: 60 to 64 (04/09/2016) By: Echo Underlying rhythm: Sinus rhythm Pacemaker Dependent: No Device Characteristics Device: Dual Chamber Type: Pacemaker Remote Follow-Up: [employer] Leads Lead #1 [employer] Lead 1: Medtronic Model Lead 1: 5076/45 Serial# Lead 1: [id number] Date Implanted Lead 1: 07/30/11 Position Lead 1: RA Lead #2 [employer] Lead 2: Medtronic Model Lead 2: 5076/52 Serial# Lead 2: [id number] Date Implanted Lead 2: 07/30/11 Position Lead 2: RV Diagnostics Pacing % RA Pacin.5 % RV Pacin Mode Switching Total # Episodes: 3 % Mode switched: 0.1 Arrhythmias Non-Sust Episodes: 2 Measurements Battery Voltage (V): 2.78 Magnet Rate (bmp): 85 Predicted Remaining Longevity (months or years): 5 yrs RA Measurements Signal Amplitude (mV): 1.0 Impedance (Ohms): 436 Threshold Voltage: 0.5 @ PW(ms): 0.4 RV Measurements Impedance (Ohms): 505 Threshold Voltage: 0.87 @ PW(ms): 0.4 Ammon Settings Pacemaker Mode: VVIR Base Rate: 60 bpm Max Sensor Rate: 130 bpm Bradycardia Output and Sensitivity Settings Right Atrium: 0.4 msec, Adaptive1.5 volts, 0.5 mV sensitivity. Right Ventricle: 0.4 msec, Adaptive2.0 volts. Billing Codes PM Device Codes: PM Dev Interrogate (Remot Assessment AND Plan Problems 1. Cardiac pacemaker in situ Z95.0 2. Atrioventricular block, complete I44.2 3. Cardiac dysrhythmia I49.9 10/07/17 9185 <Electronically signed by Vika Cotto > Date Vika Cotto 10/17/17 0839<Electronically signed by Ramirez Toth MD> Cosigner Signature: Date (if applicable) Ramirez Toth MD CC: PROGRESS Observed: 10/05/2017 Status: COMPLETED Source: [place] 9:55 AM [facility] [place] REPOSITORY HNO ID: [id number] Author: Steevn Koch Service: (none) Author Type: Physician Type: Progress Notes Filed: 10/05/2017 10:13 AM Note Text: This note was created using Semasioriter. Subjective William Xavier is a 82 year old male was here for follow up. His hypertension, diabetes mellitus, and lipids were controlled. His abdominal aortic aneurysm was stable. Review of Systems Constitutional: Negative. Respiratory: Negative. Cardiovascular: Negative. Gastrointestinal: Negative for constipation and diarrhea. Genitourinary: Negative. ACTIVE PROBLEM LIST Essential Hypertension Mixed Hyperlipidemia OVERWEIGHT Rosacea Aortic Valve Stenosis Complete heart block (HCC) Carotid Stenosis, Left Lumbago Type 2 Diabetes, Controlled, With Neuropathy (Hcc) Benign Non-Nodular Prostatic Hyperplasia With Lower Urinary Tract Symptoms Abdominal Aortic Aneurysm (Aaa) Without Rupture (Hcc) Current Outpatient Prescriptions: finasteride (PROSCAR) 5 mg tablet Take 1 tablet by mouth once daily. metoprolol tartrate, short acting, (LOPRESSOR) 50 mg tablet Take 1 tablet by mouth twice daily. hydrocortisone (ANUSOL-HC) 25 mg suppository 1 Suppository by RECTAL route twice daily as needed (hemorrhoids). gabapentin (NEURONTIN) 300 mg capsule Take 1 capsule by mouth daily at bedtime. traMADol (ULTRAM) 50 mg tablet Take 1 tablet by mouth twice daily as needed (low back pain.). metroNIDAZOLE (METROGEL) 0.75 % Topical Gel Apply 1 application to affected area once daily. pravastatin (PRAVACHOL) 40 mg tablet Take 1 tablet by mouth daily at bedtime. For cholesterol. doxazosin (CARDURA) 4 mg tablet Take 1 tablet by mouth daily at bedtime. losartan (COZAAR) 25 mg tablet Take 1 tablet by mouth once daily. fluticasone (FLONASE) 50 mcg/actuation nasal spray Use 2 Sprays in each nostril once daily. Gelatin 600 mg cap Take by mouth. cinnamon bark(CINNAMON 500 MG CAP) multivitamins(MULTIPLE VITAMINS TAB) Take one(1) tablet daily. psyllium seed/sucrose(FIBER LAXATIVE ORAL POWDER) OTC PRODUCT ronny gatica Current Facility-Administered Medications: loperamide 2 mg cap(s) (IMODIUM) 2 mg ORAL PRN Objective BP 110/53 (BP Site: Left Arm, BP Position: Sitting, BP Cuff Size: Regular Adult) Pulse (!) 53 Temp 36.3 ?C (97.4 ?F) (Left Tympanic) Resp 16 Wt 83.9 kg (185 lb) BMI 27.72 kg/m? Physical Exam Constitutional: He appears well-nourished. Cardiovascular: S1 normal and S2 normal. Bradycardia present. Murmur heard. Systolic murmur is present with a grade of 1/6 No diastolic murmur is present Pulmonary/Chest: Breath sounds normal. Abdominal: Soft. There is no tenderness. Musculoskeletal: He exhibits edema. Trace edema. Hemoglobin A1C (%) Date Value 09/28/2017 6.1 03/30/2017 6.3 ) CMP: Glucose 97 09/28/2017 BUN 12 09/28/2017 Creatinine 0.77 09/28/2017 Sodium 144 09/28/2017 Potassium 4.0 09/28/2017 Chloride 105 09/28/2017 CO2 24 09/28/2017 Assessment and Plan 1. Type 2 diabetes, controlled, with neuropathy (HCC) - ICD9: 250.60, 357.2, ICD10: E11.40 (primary diagnosis) Diet controlled. 2. Aortic valve stenosis, etiology of cardiac valve disease unspecified - ICD9: 424.1, ICD10: I35.0 Stable. 3. Essential hypertension - ICD9: 401.9, ICD10: I10 - good control 4. Abdominal aortic aneurysm (AAA) without rupture (HCC) - ICD9: 441.4, ICD10: I71.4 Stable. Checked in 2016. 5. Need for shingles vaccine - ICD9: V04.89, ICD10: Z23 Patient indicated understanding and willingness to follow recommendations. Steven Koch MD CNOV Observed: 10/05/2017 Status: COMPLETED Source: [place] 9:20 AM [facility] REPOSITORY Office Visit (INTMWS) WILLIAM XAVIER ([id number]) 1935 M NFR Date Time Provider Department 10/05/17 9:20 AM STEVEN KOCH INTMWS During your visit today, we recorded the following information about you: Temperature Pulse Respiration Blood pressure 97.4 degrees 53/minute 16/minute 110/53 Weight 83.9 kg Steven Koch MD 10/05/2017 10:13 AM Signed This note was created using NoteWriter. Subjective William Xavier is a 82 year old male was here for follow up. His hypertension, diabetes mellitus, and lipids were controlled. His abdominal aortic aneurysm was stable. Review of Systems Constitutional: Negative. Respiratory: Negative. Cardiovascular: Negative. Gastrointestinal: Negative for constipation and diarrhea. Genitourinary: Negative. ACTIVE PROBLEM LIST Essential Hypertension Mixed Hyperlipidemia OVERWEIGHT Rosacea Aortic Valve Stenosis Complete heart block (HCC) Carotid Stenosis, Left Lumbago Type 2 Diabetes, Controlled, With Neuropathy (Hcc) Benign Non-Nodular Prostatic Hyperplasia With Lower Urinary Tract Symptoms Abdominal Aortic Aneurysm (Aaa) Without Rupture (Hcc) Current Outpatient Prescriptions: finasteride (PROSCAR) 5 mg tablet Take 1 tablet by mouth once daily. metoprolol tartrate, short acting, (LOPRESSOR) 50 mg tablet Take 1 tablet by mouth twice daily. hydrocortisone (ANUSOL-HC) 25 mg suppository 1 Suppository by RECTAL route twice daily as needed (hemorrhoids). gabapentin (NEURONTIN) 300 mg capsule Take 1 capsule by mouth daily at bedtime. traMADol (ULTRAM) 50 mg tablet Take 1 tablet by mouth twice daily as needed (low back pain.). metroNIDAZOLE (METROGEL) 0.75 % Topical Gel Apply 1 application to affected area once daily. pravastatin (PRAVACHOL) 40 mg tablet Take 1 tablet by mouth daily at bedtime. For cholesterol. doxazosin (CARDURA) 4 mg tablet Take 1 tablet by mouth daily at bedtime. losartan (COZAAR) 25 mg tablet Take 1 tablet by mouth once daily. fluticasone (FLONASE) 50 mcg/actuation nasal spray Use 2 Sprays in each nostril once daily. Gelatin 600 mg cap Take by mouth. cinnamon bark(CINNAMON 500 MG CAP) multivitamins(MULTIPLE VITAMINS TAB) Take one(1) tablet daily. psyllium seed/sucrose(FIBER LAXATIVE ORAL POWDER) OTC PRODUCT ronny Vouchtiera Current Facility-Administered Medications: loperamide 2 mg cap(s) (IMODIUM) 2 mg ORAL PRN Objective BP 110/53 (BP Site: Left Arm, BP Position: Sitting, BP Cuff Size: Regular Adult) Pulse (!) 53 Temp 36.3 ?C (97.4 ?F) (Left Tympanic) Resp 16 Wt 83.9 kg (185 lb) BMI 27.72 kg/m? Physical Exam Constitutional: He appears well-nourished. Cardiovascular: S1 normal and S2 normal. Bradycardia present. Murmur heard. Systolic murmur is present with a grade of 1/6 No diastolic murmur is present Pulmonary/Chest: Breath sounds normal. Abdominal: Soft. There is no tenderness. Musculoskeletal: He exhibits edema. Trace edema. Hemoglobin A1C (%) Date Value 09/28/2017 6.1 03/30/2017 6.3 ) CMP: Glucose 97 09/28/2017 BUN 12 09/28/2017 Creatinine 0.77 09/28/2017 Sodium 144 09/28/2017 Potassium 4.0 09/28/2017 Chloride 105 09/28/2017 CO2 24 09/28/2017 Assessment and Plan 1. Type 2 diabetes, controlled, with neuropathy (HCC) - ICD9: 250.60, 357.2, ICD10: E11.40 (primary diagnosis) Diet controlled. 2. Aortic valve stenosis, etiology of cardiac valve disease unspecified - ICD9: 424.1, ICD10: I35.0 Stable. 3. Essential hypertension - ICD9: 401.9, ICD10: I10 - good control 4. Abdominal aortic aneurysm (AAA) without rupture (HCC) - ICD9: 441.4, ICD10: I71.4 Stable. Checked in 2016. 5. Need for shingles vaccine - ICD9: V04.89, ICD10: Z23 Patient indicated understanding and willingness to follow recommendations. MD Steven Rios MD 10/05/2017 10:08 AM Signed Recombinant shingles vaccine (Shingrix) is recommended; 2 doses 2-6 months apart. Please read information, check with your insurance, and call to schedule vaccination. You may also be directed to your local pharmacy. Referring Provider: STEVEN KOCH [[id number]] Allergies As of Date: 10/05/2017 (No Known Allergies) Date Reviewed: 10/05/2017 Reviewed by: Marissa Huerta LPN - Fully Assessed Reason for Visit: F/U 6 Month [444] Primary Visit Diagnosis:Type 2 diabetes, controlled, with neuropathy (HCC) [E11.40] Other Visit Diagnoses:Aortic valve stenosis, etiology of cardiac valve disease unspecified [I35.0] Essential hypertension [I10] Abdominal aortic aneurysm (AAA) without rupture (HCC) [I71.4] Need for shingles vaccine [Z23] Order(s):COMP METABOLIC PANEL [SQCMP] Order #: [id number] FUTURE HGB A1C [NXEDI5Q] Order #: [id number] FUTURE LIPID PANEL BASIC [SQLIPB] Order #: [id number] FUTURE ALBUMIN/CREAT RATIO RND UR [SQUACR] Order #: [id number] FUTURE Prescriptions as of 10/05/2017 Sig: FINASTERIDE 5 MG TABLET Take 1 tablet by mouth once d* METOPROLOL TARTRATE 50 MG TAB* Take 1 tablet by mouth twice * HYDROCORTISONE ACETATE 25 MG * 1 Suppository by RECTAL route* GABAPENTIN 300 MG CAPSULE Take 1 capsule by mouth daily* TRAMADOL 50 MG TABLET Take 1 tablet by mouth twice * METRONIDAZOLE 0.75 % TOPICAL * Apply 1 application to affect* PRAVASTATIN 40 MG TABLET Take 1 tablet by mouth daily * DOXAZOSIN 4 MG TABLET Take 1 tablet by mouth daily * LOSARTAN 25 MG TABLET Take 1 tablet by mouth once d* FLUTICASONE 50 MCG/ACTUATION * Use 2 Sprays in each nostril * * GELATIN 600 MG CAPSULE Take by mouth. * CINNAMON 500 MG CAPSULE * MULTIPLE VITAMINS TABLET Take one(1) tablet daily. * FIBER LAXATIVE (PSYLLIUM SEED* * OTC PRODUCT ronny schneiderMMIT Problem List As Of Date 10/05/2017 Noted Resolved Essential hypertension [I10] Mixed hyperlipidemia [E78.2] OVERWEIGHT [E66.9] Diverticulosis of colon (without mention of hem* 06/10/2010 ROSACEA [L71.9] Irritable bowel syndrome [K58.9] 04/07/2017 BPH W/O URINARY OBS/LUTS [N40.0] INVALID FOR*06/22/2007 Chronic rhinitis [J31.0] INVALID FOR*06/10/2010 PROSTATIC DISORDER NOS [N42.9] INVALID FOR*06/22/2007 BPH with urinary obstruction [N40.1, N13.8] INVALID FOR*10/05/2017 Bladder neck obstruction [N32.0] INVALID FOR*10/20/2016 Impaired fasting glucose [R73.01] INVALID FOR*03/07/2014 Family history of diabetes mellitus [Z83.3] INVALID FOR*06/10/2010 Aortic valve stenosis [I35.0] INVALID FOR* ONYCHOMYCOSIS [B35.1] INVALID FOR*06/10/2010 Backache, unspecified [M54.9] INVALID FOR*06/10/2010 Other seborrheic keratosis [L82.1] INVALID FOR*06/10/2010 Other psoriasis [L40.8] INVALID FOR*06/10/2010 Hemorrhage of rectum and anus [K62.5] INVALID FOR*12/08/2011 Abdominal pain, left upper quadrant [R10.12] INVALID FOR*12/08/2011 Impotence [N52.9] INVALID FOR*04/07/2017 Elevated PSA [R97.20] INVALID FOR*04/07/2017 Complete heart block (HCC) [I44.2] INVALID FOR* More... Carotid stenosis, left [I65.22] INVALID FOR* More... Lumbago [M54.5] INVALID FOR* Type 2 diabetes, controlled, with neuropathy (H*INVALID FOR* Neuropathy (HCC) [G62.9] INVALID FOR*04/07/2017 Dysuria [R30.0] INVALID FOR*10/20/2016 Benign non-nodular prostatic hyperplasia with l*INVALID FOR* Elevated prostate specific antigen (PSA) [R97.2*INVALID FOR*10/20/2016 Abdominal aortic aneurysm (AAA) without rupture*INVALID FOR* Priority: Mild Other instructions from your clinician: Recombinant shingles vaccine (Shingrix) is recommended; 2 doses 2-6 months apart. Please read information, check with your insurance, and call to schedule vaccination. You may also be directed to your local pharmacy. Disposition: Return in about 6 months (around 04/07/2018). Follow-up and Disposition History Recorded Encounter Status:Closed by STEVEN KOCH MD on 10/05/17 CBC AND DIFFERENTIAL Collected: 09/28/2017 Status: F Source: [place] 7:37 AM [facility] [place] REPOSITORY TYPE CODE TESTS RESULT OUT OF REFERENCE UNITS RANGE LAB WBC 3.70-11.00 k/uL WBC 7.68 LAB RBC 4.20-6.00 m/uL Low RBC 4.07 LAB HGB 13.0-17.0 g/dL Hemoglobin 13.1 LAB HCT 39.0-51.0 % Hematocrit 41.0 LAB MCV 80.0-100.0 fL MCV High 100.7 LAB MCH 26.0-34.0 pG MCH 32.2 LAB MCHC 30.5-36.0 g/dL MCHC 32.0 LAB RDWCV 11.5-15.0 % RDW-CV 15.0 LAB PLTCT 150-400 k/uL Platelet Count 184 LAB MPV 9.0-12.7 fL MPV 11.8 LAB ANEUT % Neut% 49.4 LAB AANEUT 1.45-7.50 k/uL Abs Neut 3.77 LAB ALYMP % Lymph% 29.3 LAB AALYMP 1.00-4.00 k/uL Abs Lymph 2.25 LAB AMONO % Harvey% 14.8 LAB AAMONO <0.87 k/uL Abs Harvey High 1.14 LAB AEOS % Eosin% 5.6 LAB AAEOS <0.46 k/uL Abs Eosin 0.43 LAB ABASO % Baso% 0.9 LAB AABASO <0.11 k/uL Abs Baso 0.07 LAB AUNRBC 0 /100 WBC NRBCs 0.0 LAB ABNRBC <0.01 k/uL Absolute nRBC <0.01 LAB DTYP DTYPE Auto Diff Performed By: #### CBCDIF, BMP, HBA1C #### [facility] [address] [place], [place] [address] BASIC METABOLIC PANL Collected: 09/28/2017 Status: F Source: [place] 7:37 AM [facility] REPOSITORY TYPE CODE TESTS RESULT OUT OF REFERENCE UNITS RANGE LAB GLU 74-99 mg/dL Glucose 97 Result Comment: The [place] [employer] (ADA) provides guidance for cutoff values for fasting glucose and random glucose. The ADA defines fasting as no caloric intake for at least 8 hours. Fas ting plasma glucose results between 100 to 125 mg/dL indicate increased risk for diabetes (prediabetes). Fasting plasma glucose results greater than or equal to 126 mg/dL meet the criteria for diagnosis of diabetes. In the absence of unequivocal hyperglycemia, results should be confirmed by repeat testing. In a patient with classic symptoms of hyperglycemia or hyperglycemic crisis, random plasma glucose results greater than or equal to 200 mg/dL meet the criteria for diagnosis of diabetes. Reference: Standards of Medical Care in Diabetes 2016, [place] [employer] Association. Diabetes Care. 2016.39(Suppl 1). LAB BUN 9-24 mg/dL BUN 12 LAB CRET 0.73-1.22 mg/dL Creatinine 0.77 LAB NA 136-144 mmol/L Sodium 144 LAB K 3.7-5.1 mmol/L Potassium 4.0 LAB CL 97-105 mmol/L Chloride 105 LAB CO2 22-30 mmol/L CO2 24 LAB AGAP 9-18 mmol/L Anion Gap 15 LAB CA 8.5-10.2 mg/dL Calcium, Total 9.1 LAB GFRAA eGFR- Amer. >60 LAB GFRNAA . eGFR-All Other Races >60 Result Comment: eGFR (Estimated GFR) Units of measure: mL/min/1.73 meters squared eGFR is derived from the reexpressed MDRD Study equation using the following parameters: serum creatinine, age, gender and race. The creatinine assay has been calibrated to be traceable to IDMS. An eGFR <60 mL/min/1.73m2 for >3 months is consistent with chronic kidney disease. Refer to KDOQI guidelines for clinical interpretation. In patients with unstable renal function, e.g. those with acute kidney injury, the eGFR may not accurately reflect actual GFR. Performed By: #### CBCDIF, BMP, HBA1C #### [facility] [address] [place], [place] [address] HEMOGLOBIN A1C Collected: 09/28/2017 Status: F Source: [place] 7:37 AM [facility] REPOSITORY TYPE CODE TESTS RESULT OUT OF REFERENCE UNITS RANGE LAB HGBA1C 4.3-5.6 % High Hemoglobin A1c 6.1 LAB HBA0 mg/dL Est. Average Glucose 128 Result Comment: eAG: (Estimated average glucose) is a calculated value from HgbA1c and is risk control representative of the average blood glucose level in the last 2-3 month period. Performed By: #### CBCDIF, BMP, HBA1C #### [facility] [address] [place], [place] [address] C DIFFICILE PCR Collected: 09/05/2017 Status: F Source: [place] 5:00 PM [facility] REPOSITORY TYPE CODE TESTS RESULT OUT OF REFERENCE UNITS RANGE LAB CDFRES C difficile PCR Negative for C. difficile toxin by PCR Performed By: #### CDPCR #### [facility] [address] [place], [place] [address] PROGRESS Observed: 09/03/2017 Status: COMPLETED Source: [place] 3:16 PM [facility] REPOSITORY O ID: [id number] Author: Steven Koch Service: (none) Author Type: Physician Type: Progress Notes Filed: 09/03/2017 3:28 PM Note Text: This note was created using NoteWriter. Subjective William Xavier is a 82 year old male here for fecal incontinence with or without diarrhea intermittent, increasing in frequency for 3 months. He indicated symptoms started 6 months ago, but had not been frequent. Recently, symptoms increased in frequency and urgency, to the point that he's had accidents in public places. Other symptoms noted where bloating, cramps, but no rectal bleeding or other systemic symptoms were noted. He felt he had similar issues after his gallbladder surgery in 2003. No one else at home had diarrhea, and he denied any recent antibiotic use. He started taking loperamide once every 2-3 days and symptoms have subsided significantly. Review of Systems Constitutional: Negative. Respiratory: Negative. Cardiovascular: Negative. Gastrointestinal: Negative for abdominal pain. Genitourinary: Negative. Objective BP 138/70 Pulse 64 Resp 16 Wt 86.2 kg (190 lb) BMI 28.47 kg/m? Physical Exam Constitutional: No distress. HENT: Mouth/Throat: Oropharynx is clear and moist. Eyes: Conjunctivae are normal. Cardiovascular: Normal heart sounds. Pulmonary/Chest: Breath sounds normal. Abdominal: Soft. Bowel sounds are normal. He exhibits no distension and no mass. There is no tenderness. Skin: Skin is warm and dry. Assessment and Plan ASSESSMENT/PLAN: 1. Diarrhea, unspecified type - ICD9: 787.91, ICD10: R19.7 (primary diagnosis) Etiology not clear. Work up. Continue over the counter medication. Need for liquid stool sample was stressed. - LOPERAMIDE 2 MG CAPSULE - C. DIFFICILE PCR - CBC + DIFF 2. Incontinence of feces, unspecified fecal incontinence type - ICD9: 787.60, ICD10: R15.9 - LOPERAMIDE 2 MG CAPSULE - C. DIFFICILE PCR 3. Type 2 diabetes, controlled, with neuropathy (HCC) - ICD9: 250.60, 357.2, ICD10: E11.40 Controlled. Follow up next month. - BASIC METABOLIC PNL - HGB A1C Steven Koch MD CNOV Observed: 09/03/2017 Status: COMPLETED Source: [place] 11:20 AM [facility] REPOSITORY Office Visit (INTMWS) WILLIAM XAVIER ([id number]) 1935 M NFR Date Time Provider Department 09/03/17 11:20 AM STEVEN KOCH INTMWS During your visit today, we recorded the following information about you: Pulse Respiration Blood pressure Weight 64/minute 16/minute 138/70 86.2 kg Steven Koch MD 09/03/2017 3:28 PM Signed This note was created using NoteWriter. Subjective Williambrock Xavier is a 82 year old male here for fecal incontinence with or without diarrhea intermittent, increasing in frequency for 3 months. He indicated symptoms started 6 months ago, but had not been frequent. Recently, symptoms increased in frequency and urgency, to the point that he's had accidents in public places. Other symptoms noted where bloating, cramps, but no rectal bleeding or other systemic symptoms were noted. He felt he had similar issues after his gallbladder surgery in 2003. No one else at home had diarrhea, and he denied any recent antibiotic use. He started taking loperamide once every 2-3 days and symptoms have subsided significantly. Review of Systems Constitutional: Negative. Respiratory: Negative. Cardiovascular: Negative. Gastrointestinal: Negative for abdominal pain. Genitourinary: Negative. Objective BP 138/70 Pulse 64 Resp 16 Wt 86.2 kg (190 lb) BMI 28.47 kg/m? Physical Exam Constitutional: No distress. HENT: Mouth/Throat: Oropharynx is clear and moist. Eyes: Conjunctivae are normal. Cardiovascular: Normal heart sounds. Pulmonary/Chest: Breath sounds normal. Abdominal: Soft. Bowel sounds are normal. He exhibits no distension and no mass. There is no tenderness. Skin: Skin is warm and dry. Assessment and Plan ASSESSMENT/PLAN: 1. Diarrhea, unspecified type - ICD9: 787.91, ICD10: R19.7 (primary diagnosis) Etiology not clear. Work up. Continue over the counter medication. Need for liquid stool sample was stressed. - LOPERAMIDE 2 MG CAPSULE - C. DIFFICILE PCR - CBC + DIFF 2. Incontinence of feces, unspecified fecal incontinence type - ICD9: 787.60, ICD10: R15.9 - LOPERAMIDE 2 MG CAPSULE - C. DIFFICILE PCR 3. Type 2 diabetes, controlled, with neuropathy (HCC) - ICD9: 250.60, 357.2, ICD10: E11.40 Controlled. Follow up next month. - BASIC METABOLIC PNL - HGB A1C Steven Koch MD Referring Provider: SELF [200] Allergies As of Date: 09/03/2017 (No Known Allergies) Date Reviewed: 09/03/2017 Reviewed by: Nelly Rowe Ma - Fully Assessed Reason for Visit: Diarrhea [35] Cmt: Trouble holding bowels Primary Visit Diagnosis:Diarrhea, unspecified type [R19.7] Other Visit Diagnoses:Incontinence of feces, unspecified fecal incontinence type [R15.9] Type 2 diabetes, controlled, with neuropathy (HCC) [E11.40] Order(s):loperamide 2 mg cap(s) (IMODIUM)Disp: Rfl: C. DIFFICILE PCR [SQCDPCR] Order #: [id number] CBC + DIFF [SQCBCDIF] Order #: [id number] FUTURE BASIC METABOLIC PNL [SQBMP] Order #: [id number] FUTURE HGB A1C [QKYEY1U] Order #: [id number] FUTURE Prescriptions as of 09/03/2017 Sig: FINASTERIDE 5 MG TABLET Take 1 tablet by mouth once d* METOPROLOL TARTRATE 50 MG TAB* Take 1 tablet by mouth twice * HYDROCORTISONE ACETATE 25 MG * 1 Suppository by RECTAL route* GABAPENTIN 300 MG CAPSULE Take 1 capsule by mouth daily* TRAMADOL 50 MG TABLET Take 1 tablet by mouth twice * METRONIDAZOLE 0.75 % TOPICAL * Apply 1 application to affect* PRAVASTATIN 40 MG TABLET Take 1 tablet by mouth daily * DOXAZOSIN 4 MG TABLET Take 1 tablet by mouth daily * LOSARTAN 25 MG TABLET Take 1 tablet by mouth once d* FLUTICASONE 50 MCG/ACTUATION * Use 2 Sprays in each nostril * * GELATIN 600 MG CAPSULE Take by mouth. * CINNAMON 500 MG CAPSULE * MULTIPLE VITAMINS TABLET Take one(1) tablet daily. * FIBER LAXATIVE (PSYLLIUM SEED* * OTC PRODUCT Renovagen Problem List As Of Date 09/03/2017 Noted Resolved Essential hypertension [I10] Mixed hyperlipidemia [E78.2] OVERWEIGHT [E66.9] Diverticulosis of colon (without mention of hem* 06/10/2010 ROSACEA [L71.9] Irritable bowel syndrome [K58.9] 04/07/2017 BPH W/O URINARY OBS/LUTS [N40.0] INVALID FOR*06/22/2007 Chronic rhinitis [J31.0] INVALID FOR*06/10/2010 PROSTATIC DISORDER NOS [N42.9] INVALID FOR*06/22/2007 BPH with urinary obstruction [N40.1, N13.8] INVALID FOR* Bladder neck obstruction [N32.0] INVALID FOR*10/20/2016 Impaired fasting glucose [R73.01] INVALID FOR*03/07/2014 Family history of diabetes mellitus [Z83.3] INVALID FOR*06/10/2010 Aortic valve stenosis [I35.0] INVALID FOR* ONYCHOMYCOSIS [B35.1] INVALID FOR*06/10/2010 Backache, unspecified [M54.9] INVALID FOR*06/10/2010 Other seborrheic keratosis [L82.1] INVALID FOR*06/10/2010 Other psoriasis [L40.8] INVALID FOR*06/10/2010 Hemorrhage of rectum and anus [K62.5] INVALID FOR*12/08/2011 Abdominal pain, left upper quadrant [R10.12] INVALID FOR*12/08/2011 Impotence [N52.9] INVALID FOR*04/07/2017 Elevated PSA [R97.20] INVALID FOR*04/07/2017 Complete heart block (HCC) [I44.2] INVALID FOR* More... Carotid stenosis, left [I65.22] INVALID FOR* More... Lumbago [M54.5] INVALID FOR* Type 2 diabetes, controlled, with neuropathy (H*INVALID FOR* Neuropathy (HCC) [G62.9] INVALID FOR*04/07/2017 Dysuria [R30.0] INVALID FOR*10/20/2016 Benign non-nodular prostatic hyperplasia with l*INVALID FOR* Elevated prostate specific antigen (PSA) [R97.2*INVALID FOR*10/20/2016 Abdominal aortic aneurysm (AAA) without rupture*INVALID FOR* Priority: Mild Prescriptions ordered this encounter Disp Refills Start End LOPERAMIDE 2 MG CAPSULE 09/03/2017 Route: ORAL Disposition: Return if symptoms worsen or fail to improve. Follow-up and Disposition History Recorded Encounter Status:Closed by STEVEN KOCH MD on 09/03/17 OFFICE VISIT REPORT Observed: 06/09/2017 Status: F Source: NELLA 12:04 PM [place] [address] [id number] OFFICE VISIT Date of Service: 05/31/17 MR#: [id number] Acct: [id number] Patient: WILLIAM XAVIER Rep #: [id number] : 1935 Provider: Vika Cotto Age/Sex: 82/M Location: [facility] [place] Status: Signed Comments Summary Comments: Remote Dual Chamber Pacemaker Evaluation: Remote interrogation shows 3 MS episodes, <0.1% and 2 VHR episodes since 07/06/16. Stored markers/e- grams show both episodes on 04/30/17 VHR @ 200 bpm x 10 and 11 beats. Presenting rhythm shows AV sequential paced @ 65 ppm. Battery longevity approx 5.5 yrs. BOTTOM MAN=81.8%. Lead impedances, atrial sensing and adaptive A/V pace/sense thresholds remain stable. Normal remote PPM function. Pt notified remote transmission received and next f/u appt scheduled for in 3 mos. Device Device Date Interviewed: 05/31/17 Follow-up Location: remote Interview Reason: scheduled follow up [employer]: [employer] Name: Versa Model: VEDR01 Serial #: [id number] Implant Date: 07/30/11 Year(s): 5 Implant Physician: Dr. Jossie Irizarry Patient Characteristics AV/Node Indication: Complete heart block Ventricular Indication: Nonsustained VT Ejection fraction %: 60 to 64 (04/09/2016) By: Echo Underlying rhythm: Sinus rhythm Pacemaker Dependent: No Device Characteristics Device: Dual Chamber Type: Pacemaker Remote Follow-Up: [facility] Leads Lead #1 [employer] Lead 1: Medtronic Model Lead 1: 5076/45 Serial# Lead 1: [id number] Date Implanted Lead 1: 07/30/11 Position Lead 1: RA Lead #2 [employer] Lead 2: Medtronic Model Lead 2: 5076/52 Serial# Lead 2: [id number] Date Implanted Lead 2: 07/30/11 Position Lead 2: [employer] Pacing % RA Pacin.9 % RV Pacin.8 Mode Switching Total # Episodes: 3 % Mode switched: 0.1 Arrhythmias Non-Sust Episodes: 2 Measurements Battery Voltage (V): 2.77 Magnet Rate (bmp): 85 Predicted Remaining Longevity (months or years): 5.5 years RA Measurements Signal Amplitude (mV): 1.4 Impedance (Ohms): 468 Threshold Voltage: 0.5 @ PW(ms): 0.4 RV Measurements Impedance (Ohms): 437 Threshold Voltage: 0.87 @ PW(ms): 0.4 Ammon Settings Pacemaker Mode: VVIR Base Rate: 60 bpm Max Sensor Rate: 130 bpm Billing Codes PM Device Codes: PM Dev Interrogate (Remot Assessment AND Plan Problems 1. 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 Cardiac pacemaker in situ Z95.0 3. Cardiac dysrhythmia I49.9 06/09/17 1119 <Electronically signed by Vika Cotto > Date Vika Cotto 06/09/17 1204<Electronically signed by Ramirez Toth MD> Cosigner Signature: Date (if applicable) Ramirez Toth MD CC: ALLERGIES ALLERGIES DATE TYPE / CODE NAME / CODE REACTION SEVERITY SOURCE 12/19/2017 Drug No Known Unknown [facility] Allergy/416 Allergies/S56778 Hospital 071443(SNOM 0388(RXNORM) Repository ED CT) Drug NO KNOWN [facility] Class/67286 ALLERGIES [facility] 1003(SNOMED Repository CT) ENCOUNTERS ENCOUNTERS ADMIT/DISCHARGE ACCOUNT ADMITTING ENCOUNTER LOCATION SOURCE NUMBER CLASS 06/01/2018 [id number] [facility] ing:RAD Repository 05/25/2018 [id number] [facility] ing:POLAB3 Repository 05/19/2018 [id number] [facility] Hospital ing:CT Repository 05/15/2018 [id number] Ambulatory [facility] Hospital ing:POLAB3 Repository 04/03/2018 [id number] Ambulatory [facility] Hospital ing:RAD Repository 02/14/2018 [id number] Ambulatory [facility] Hospital ing:US Repository 02/08/2018 [id number] Ambulatory [facility] Hospital ing:RAD Repository 12/21/2017 [id number] Ambulatory [facility] Hospital ing:CVS Repository 12/21/2017 [id number] Ambulatory [facility] Repository 12/19/2017/12/20/19 [id number] [facility] [place] [facility] 12/15/2017 [id number] Amb[facility] [place] [facility] Repository 10/05/2017/10/07/19 [id number] Ambulatory [address] Repository 09/28/2017/09/29/19 [id number] Ambulatory [address] Repository 09/20/2017/09/21/19 [id number] Ambulatory BMSBuilding:[facility] [place] [facility] Repository 09/03/2017/09/06/19 [id number] Ambulatory [address] Repository 05/31/2017/05/31/19 [id number] Ambulatory BMS[facility] [place] [facility] Repository PAYERS PAYERS ENCOUNTER GUARANTOR PAYER SUBSCRIBER SOURCE 06/01/2018 WILLIAM P Primary WILLIAM P [place] [id number] Insurance[facility]MEDICARE [facility]OB[facility] [address] Number: Repository [id number]: [phone] [id number] [phone] (HP) Date:2018-06-01 06/01/2018 Secondary WILLIAM P [place] Insurance:MUTUAL OF MELLORDOB: [facility] Number: [id number] [place] [address] [id number] Repository Date:2755-64-22RRKJJSSEWAREN, [place] [address]WQ: 06/01/2018 Tertiary NOT GIVENUNK [place] Insurance:SELF PAY [facility] Number: Effective Repository Date:2018-06-01 05/25/2018 WILLIAM P Primary WILLIAM P [place] [id number] Insurance:MEDICARE MELLORDOB: [facility] [id number] Number: Repository [id number]: 330 [id number] [phone] (HP) Date:2018-05-25 05/25/2018 Secondary WILLIAM P [place] Insurance:MUTUAL OF MELLORDOB: [facility] Number: [id number] Hospital [id number] Repository Date:3642-21-29KIAWXB OF [place], [place] [address]TS: 05/25/2018 Tertiary NOT GIVENUNK [place] Insurance:SELF PAY [facility] Number: Effective Repository Date:2018-05-25 05/19/2018 WILLIAM P Primary WILLIAM P [place] [id number] Insurance:MEDICARE MELLORDOB: Community GT PART A [facility] [id number] Number: Repository [address]Tho: [phone] [id number] [phone] () Date:2018-05-15 05/19/2018 Secondary WILLIAM P [place] Insurance:MUTUAL OF MELLORDOB: [facility] Number: [id number] Hospital [id number] Repository Date:4083-36-70PVSJCYC[place] [address]KR: 05/19/2018 Tertiary NOT GIVENUNK [place] Insurance:SELF PAY [facility] Number: Effective Repository Date:2018-05-15 05/15/2018 WILLIAM P Primary WILLIAM P [place] [id number] Insurance:MEDICARE MELLORDOB: Community GT PART A [facility] [id number] Number: Repository [address]Ywu: 330 [id number] [phone] () Date:2018-05-15 05/15/2018 Secondary WILLIAM P [place] Insurance:MUTUAL OF MELLORDOB: [facility] Number: [id number] Hospital [id number] Repository Date:2738-10-33OWUPXL [place], [place] [address]SR: 05/15/2018 Tertiary NOT GIVENUNK [place] Insurance:SELF PAY [facility] Number: Effective Repository Date:2018-05-15 04/03/2018 WILLIAM P Primary WILLIAM P [place] [id number] Insurance:MEDICARE MELLORDOB: Community GT PART A [facility] [id number] Number: Repository [id number]: [phone] [id number] [phone] () Date:2018-04-03 04/03/2018 Secondary WILLIAM P [place] Insurance:MUTUAL OF MELLORDOB: [facility] Number: [id number] Hospital [id number] Repository Date:9790-73-35VGVBED OF [place], [place] [address]CK: 04/03/2018 Tertiary NOT GIVENUNK [place] Insurance:SELF PAY [facility] Number: Effective Repository Date:2018-04-03 02/14/2018 WILLIAM P Primary WILLIAM P [place] [id number] Insurance:MEDICARE MELLORDOB: Community GT PART A [facility] [id number] Number: Repository [phone]: [phone] [id number] [phone] () Date:2018-02-08 02/14/2018 Secondary WILLIAM P [place] Insurance:MUTUAL OF MELLORDOB: [facility] Number: [id number] Hospital [id number] Repository Date:1056-19-50KGMIDZ [place], [place] [address]LX: 02/14/2018 Tertiary NOT GIVENUNK [place] Insurance:SELF PAY [facility] Number: Effective Repository Date:2018-02-08 02/08/2018 WILLIAM P Primary WILLIAM P [place] [id number] Insurance:MEDICARE MELLORDOB: Community GT PART A [facility] [id number] Number: Repository [phone]: [phone] [id number] [phone] () Date:2018-02-08 02/08/2018 Secondary WILLIAM P [place] Insurance:MUTUAL OF MELLORDOB: [facility] Number: [id number] Hospital [id number] Repository Date:7708-52-36QCCDJS OF [place], [place] [address]CH: 02/08/2018 Tertiary NOT GIVENUNK [place] Insurance:SELF PAY [facility] Number: Effective Repository Date:2018-02-08 12/21/2017 WILLIAM P Primary WILLIAM P [place] [id number] Insurance:MEDICARE MELLORDOB: Community GT PART A [facility] [id number] [place] Number: Repository [phone]: [phone] [id number] [phone] (HP) Date:2017-12-19 12/21/2017 Secondary WILLIAM P [place] Insurance:MUTUAL OF MELLORDOB: [facility] Number: [id number] Hospital [id number] Repository Date:6400-38-11NGPTRG [place], [place] [address]BW: 12/21/2017 Tertiary NOT GIVENUNK [place] Insurance:SELF PAY [facility] Number: Effective Repository Date:2017-12-19 12/21/2017 WILLIAM P Primary WILLIAM P [place] [id number] Insurance:MEDICARE MELLORDOB: Community GT PART A [facility] [id number] [place] Number: Repository [address]Rrc: [phone] [id number] [phone] () Date:2017-12-19 12/21/2017 Secondary WILLIAM P [place] Insurance:MUTUAL OF MELLORDOB: [facility] Number: [id number] Hospital [id number] Repository Date:5199-43-29YBEHZQ OF [place], [place] [address]AK: 12/21/2017 Tertiary NOT GIVENUNK [place] Insurance:SELF PAY [facility] Number: Effective Repository Date:2017-12-21 12/19/2017 WILLIAM P Primary WILLIAM P [place] [id number] Insurance:MEDICARE MELLORDOB: Community GT PART A [facility] [id number] [facility] [place] Number: Repository [address]Xbi: [phone] [id number] [phone] (HP) Date:2017-04-26 12/19/2017 Secondary WILLIAM P [place] Insurance:MUTUAL OF MELLORDOB: [facility] Number: [id number] Hospital [id number] Repository Date:2239-35-36FYQYEA [place], [place] [address]TD: 12/19/2017 Tertiary NOT GIVENUNK [place] Insurance:SELF PAY [facility] Number: Effective Repository Date:2017-12-19 12/15/2017 WILLIAM P Primary WILLIAM P [place] [id number] Insurance:MEDICARE MELLORDOB: Community GT PART A [facility] [id number] [place] [address] Number: Repository [phone]: [phone] [id number] [phone] () Date:2017-12-15 12/15/2017 Secondary WILLIAM P [place] Insurance:MUTUAL OF MELLORDOB: [facility] Number: [id number] Hospital [id number] Repository Date:3342-29-49PNPYAZ [place], [place] [address]RN: 12/15/2017 Tertiary NOT GIVENUNK [place] Insurance:SELF PAY [facility] Number: Effective Repository Date:2017-12-15 09/20/2017 WILLIAM P Primary WILLIAM P [place] [id number] Insurance:MEDICARE MELLORDOB: Community GT PART A [facility] [id number] Number: Repository [id number]: [phone] [id number] [phone] (HP) Date:2017-09-20 09/20/2017 Secondary WILLIAM P [place] Insurance:MUTUAL OF MELLORDOB: [facility] Number: [id number] Hospital [id number] Repository Date:3020-27-93OBPMEB [place], [place] [address]TA: 09/20/2017 Tertiary NOT GIVENUNK [place] Insurance:SELF PAY [facility] Number: Effective Repository Date:2017-09-20 05/31/2017 WILLIAM P Primary WILLIAM P [place] [id number] Insurance:MEDICARE MELLORDOB: Community GT PART A BPolicy [id number] Hospital neri [place] Number: Repository [id number]: [phone] [id number] [phone] () Date:2017-04-12 05/31/2017 Secondary WILLIAM P [place] [facility]UAL [facility] Number: [id number] Hospital [id number] Repository Date:2529-94-48QZOXPF [facility] [place] [address]VA: 05/31/2017 Tertiary NOT GIVENUNK [place] Insurance:SELF PAY [facility] Number: Effective Repository Date:2017-04-12
== END ==
PROVIDERS: Family Provider Family Medicine Geriatric Medicine; PCP Family Medicine Geriatric Medicine; Visit Provider Family Medicine Geriatric Medicine
DX: R10.9 Unspecified abdominal pain (principal)
CPT/HCPCS: 36415; 80048; 85025

== ENCOUNTER → 2018-06-01 13:04 | Outpatient (CLI) | payer MEDICARE, OTHER, SELFPAY ==
--- NOTE | 2018-06-01 13:08 | RAD_ITS ---
STUDY: X-RAY - ABDOMEN/PELVIS REASON FOR EXAM: Male, 83 years old. Fecal impaction of the colon TECHNIQUE: AP supine and upright views of the abdomen and pelvis. COMPARISON: None. FINDINGS: Normal visualized lung bases. Nonspecific. Nonobstructive bowel gas pattern. Fecal retention throughout the colon. There is no demonstrated free abdominal air. The visualized liver, spleen and kidneys are grossly normal in size and morphology. Normal soft tissue structures. There are diffuse degenerative changes of the visualized lumbar spine. Mesh repair of hernia in the left lower pelvic region RAD/Abd Inc Decub and/or Erect IMPRESSION: Fecal retention in the colon. No evidence of free air. No evidence of small bowel obstruction. Electronically Signed: Oswald Cooper DO at 13:57 EST Tel , Service support ,
== END ==
PROVIDERS: Family Provider Family Medicine Geriatric Medicine; PCP Family Medicine Geriatric Medicine; Referring Provider Family Medicine Geriatric Medicine; Visit Provider Family Medicine Geriatric Medicine
DX: K56.41 Fecal impaction (principal)
CPT/HCPCS: 74019

== ENCOUNTER → 2018-06-29 16:10 | Outpatient (CLI) | payer MEDICARE, OTHER, SELFPAY ==
--- NOTE | 2018-06-29 16:14 | CT_ITS ---
STUDY: CT ABDOMEN AND PELVIS WITHOUT CONTRAST REASON FOR EXAM: Male, 83 years old. Right flank pain. Prior cholecystectomy and splenectomy. RADIATION DOSAGE (If Supplied By Facility): CTDIvol = ( 12.23 ) mGy, DLP = ( 729.19 ) mGycm TECHNIQUE: Transaxial images were obtained from the dome of the diaphragm to the symphysis pubis without oral contrast, and without intravenous contrast. Sagittal and coronal images were reconstructed. Individualized dose optimization techniques were used for this CT. COMPARISON: CT abdomen and pelvis with oral and IV contrast May 19, 2018; AP supine and upright views of the abdomen and pelvis June 01, 2018. FINDINGS: Mildly prominent interstitial densities in the visualized lung bases likely related to crowding, although an element of chronic change could be present. The heart size is upper normal. There is calcification of the mitral valve annulus. There are atherosclerotic calcifications of the coronary arteries and visualized distal descending thoracic aorta. 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 Leads of a cardiac pacemaker also noted in the right heart Normal liver. The portal vein diameter is 15 mm. There is non-visualization of the gallbladder, which may be secondary to either contraction or a prior cholecystectomy. The diameter of the common bile duct is approximate 6 mm. The spleen is surgically absent. Normal pancreas. Normal bilateral adrenal glands. Bilateral large, exophytic renal cortical cysts are again noted. On the right, there is a 13.1 x 8.6 x 11.9 cm exophytic cyst at the lateral upper to midpole. 11 mm cortical cyst also seen in the anteromedial upper pole (series 1002, image 56) and there may be an 11.5 mm cortical cyst at the lateral midpole (image 62). Well-defined, hypodense 6.25 x 8 x 6.65 cm exophytic cortical cyst again seen at the anterior upper pole of the left kidney. There is minor cortical thinning at the posterior left midpole and lateral lower pole 6 mm calcification suggesting a nonobstructing stone also seen at the lateral lower pole. There is no hydronephrosis.. Normal visualized stomach. Normal small intestine. There are multiple colonic diverticula consistent with diverticulosis. There is stable/recurrent mural thickening at the mid sigmoid colon, but the small anterior mural or pericolonic collection seen on prior exam is not clearly demonstrated here. There is subtle pericolonic stranding and acute diverticulitis could be present. The appendix is visualized and appears normal. There is stable moderately diffuse atherosclerotic calcification of the abdominal aorta and iliofemoral arteries with elongation and tortuosity, as well as stable 2.6 x 2.65 cm fusiform ectasia of the immediate infrarenal aorta. There is 3.5 x 3.5 cm fusiform ectasia of the aorta as it passes through the diaphragmatic hiatus (series 602 image 60, series 601 image 88). There is 1.55 cm ectasia of the left common iliac artery. Normal inferior vena cava. Normal retroperitoneum. Empty urinary bladder. There are prostatic calcifications. Number of fixation devices are again seen along the internal margin of the lower lateral left abdominal wall musculature leading to the top of the inguinal canal. There is no demonstrated hernia. There are stable diffuse degenerative changes of the visualized spine with mild kyphosis at the upper lumbar levels. CT/Abdomen/Pelvis without Cont IMPRESSION: 1. Very mild mid to distal sigmoid diverticulitis. The possible small mural/pericolonic collection seen along the anterior margin of the mid sigmoid on prior study is no longer apparent and no other new extraluminal collection is present. No sign of bowel obstruction. The appendix is normal. 2. Bilateral exophytic renal cortical cysts again seen, as described above. Nonobstructing 6 mm stone in the lower pole of the left kidney. No hydronephrosis. 3. Prior cholecystectomy. 4. Stable extensive atherosclerotic vascular calcifications. 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 Stable 2.65 cm ectasia of the aorta just below the renal arteries. 5. No new abdominal/pelvic mass or fluid collection. 6. Metal fixation device is again seen along the anterior margin of the lower left abdominal wall musculature relating to the inguinal canal. No demonstrated hernia. 7. Electronically Signed: Yann Alegre MD at 17:35 EST , Service support ,
== END ==
PROVIDERS: Family Provider Family Medicine Geriatric Medicine; PCP Family Medicine Geriatric Medicine; Referring Provider Family Medicine Geriatric Medicine; Visit Provider Family Medicine Geriatric Medicine
DX: N39.0 Urinary tract infection, site not specified (principal); R10.30 Lower abdominal pain, unspecified
CPT/HCPCS: 74176; 87086; 87088

== ENCOUNTER → 2018-07-21 12:17 | Outpatient (CLI) | payer MEDICARE, OTHER, SELFPAY ==
--- NOTE | 2018-07-21 12:30 | RAD_ITS ---
STUDY: X-RAY - ACUTE ABDOMINAL SERIES REASON FOR EXAM: Male, 83 years old. Bowel incontinence. TECHNIQUE: Single view of the chest. Supine, and erect view(s) of the abdomen were obtained. COMPARISON: Comparison is made with prior study dated June 01, 2018. FINDINGS: Stable mild increased markings at the lung bases suggestive of scarring. A dual-chamber pacemaker is seen. Normal mediastinum and magen. Normal visualized pulmonary arteries. There is atherosclerotic calcification of the aortic arch with tortuosity. There is a moderate amount of colonic fecal material. There are multiple calcified phleboliths. Evidence of prior mesh placement in the left lower pelvis. There are diffuse degenerative changes of the visualized lumbar spine. RAD/Acute Abdomen Inc Chest IMPRESSION: Moderate amount of fecal material is seen scattered throughout the colon. Electronically Signed: Kyle Whitley, at 12:55 EDT , Service support ,
== END ==
PROVIDERS: Family Provider Family Medicine Geriatric Medicine; PCP Family Medicine Geriatric Medicine; Referring Provider Family Medicine Geriatric Medicine; Visit Provider Family Medicine Geriatric Medicine
DX: R15.9 Full incontinence of feces (principal)
CPT/HCPCS: 74019; 74022

== ENCOUNTER → 2018-07-24 12:36 | Outpatient (CLI) | payer MEDICARE, OTHER, SELFPAY ==
[2018-06-05 13:39] VITALS: BMI 26.6
--- NOTE | 2018-07-24 12:44 | RAD_ITS ---
STUDY: X-RAY - ABDOMEN/PELVIS REASON FOR EXAM: Male, 83 years old. Constipation, pain, bloating TECHNIQUE: AP supine and upright views of the abdomen and pelvis on 4 images. COMPARISON: Acute abdomen series July 21, 2018. FINDINGS: Subsegmental interstitial densities of crowding or chronic change noted in the medial lung bases. Leads of a cardiac pacemaker again extend to the right heart. There is an overall nonspecific pattern of gas in nondistended segments of small bowel and colon. However, there may be mural thickening of the left colon. There is no demonstrated free abdominal air. The visualized liver, spleen and kidneys are grossly normal in size and morphology. There are calcified phleboliths in the pelvis. A cluster of metal coil densities related to prior herniorrhaphy again project over the lateral left lower quadrant. There are stable multilevel degenerative changes of the visualized spine. RAD/Abd Inc Decub and/or Erect IMPRESSION: Possible mural thickening of the left colon, which could reflect regional colitis of indeterminate etiology. The overall bowel gas pattern is nonspecific without signs of obstruction. No free gas. Electronically Signed: Yann Alegre MD at 19:17 EDT , Service support ,
[2018-07-24 14:51] LABS: Absolute Lymphocyte Count 1.46 X10^3/ul (0.83-4.51); Absolute Neutrophil Count 13.5 X10^3/uL (2.0-7.7); Basophil# 0.06 X10^3/uL; Basophil% 0.4 % (0-1); Eosinophil# 0.15 X10^3/uL; Eosinophils% 0.9 % (0-5); Hemoglobin 12.2 g/dl (13.0-16.5); Lymphocyte # 1.46 X10^3/ul (4.0); Lymphocyte % 8.7 % (19-41); Mean Corp Hgb Conc 32.1 g/gl (32-36); Mean Corpuscular Hgb 32.6 pg (27.0-32.0); Mean Corpuscular Volume 101.6 fL (80-94); Mean Platelet Vol. 11.7 fl (6.2-12.0); Monocyte# 1.43 X10^3/uL; Monocyte% 8.6 % (0-10); Neutrophil # 13.46 X10^3/uL (2.7-7.7); Neutrophil % 80.6 % (47-70); Platelet Count 272 K/mm3 (150-450); RBC Distribution Width SD 55.2 fl (35.1-43.9); Red Blood Count 3.74 M/mm3 (4.6-6.2); White Blood Count 16.7 K/mm3 (4.4-11.0)
[2018-07-24 14:57] LABS: POSITIVE COUNT NO; POSITIVE DIFFERENTIAL NO; POSITIVE MORPHOLOGY NO
[2018-07-24 15:11] LABS: Anion Gap 5 (5-15); BUN 11 mg/dL (7-18); Calcium,Total 8.4 mg/dL (8.5-10.1); Chloride 104 mmol/L (98-107); Creatinine, Serum 0.85 mg/dL (0.70-1.30); EST Glomerular Filtration Rate 92 mL/min (>60); Est Glom Filt Rate - Afr Amer 111 mL/min (>60); Glucose 140 mg/dL (74-106); Potassium 3.6 mmol/L (3.5-5.1); Sodium Level 137 mmol/L (136-145)
== END ==
PROVIDERS: Family Provider Family Medicine Geriatric Medicine; PCP Family Medicine Geriatric Medicine; Referring Provider Family Medicine Geriatric Medicine; Visit Provider Family Medicine Geriatric Medicine
DX: K59.00 Constipation, unspecified (principal); I10 Essential (primary) hypertension
CPT/HCPCS: 36415; 74019; 80048; 85025

== ENCOUNTER → 2018-07-25 12:18 | Outpatient (CLI) | payer MEDICARE, OTHER, SELFPAY ==
[2018-06-05 13:39] VITALS: BMI 26.6
== END ==
PROVIDERS: Family Provider Family Medicine Geriatric Medicine; PCP Family Medicine Geriatric Medicine; Visit Provider Family Medicine Geriatric Medicine
DX: R19.7 Diarrhea, unspecified (principal)
CPT/HCPCS: 82274; 83630; 87177; 87209; 87493

== ENCOUNTER → 2018-08-15 | Outpatient (CLI) | payer MEDICARE, OTHER, SELFPAY ==
[2018-06-05 13:39] VITALS: BMI 26.6
[2018-08-15 16:09] LABS: Absolute Lymphocyte Count 1.49 X10^3/ul (0.83-4.51); Absolute Neutrophil Count 6.2 X10^3/uL (2.0-7.7); Basophil# 0.03 X10^3/uL; Basophil% 0.3 % (0-1); Eosinophil# 0.27 X10^3/uL; Hematocrit 37.9 % (40-54); Hemoglobin 12.2 g/dl (13.0-16.5); Lymphocyte # 1.49 X10^3/ul (4.0); Lymphocyte % 16.4 % (19-41); Mean Corp Hgb Conc 32.2 g/gl (32-36); Mean Corpuscular Hgb 32.5 pg (27.0-32.0); Mean Corpuscular Volume 101.1 fL (80-94); Mean Platelet Vol. 11.8 fl (6.2-12.0); Monocyte# 1.14 X10^3/uL; Monocyte% 12.5 % (0-10); Neutrophil # 6.15 X10^3/uL (2.7-7.7); Neutrophil % 67.7 % (47-70); Platelet Count 213 K/mm3 (150-450); RBC Distribution Width CV 16.3 % (11.6-14.6); Red Blood Count 3.75 M/mm3 (4.6-6.2); White Blood Count 9.1 K/mm3 (4.4-11.0)
[2018-08-15 16:10] LABS: POSITIVE COUNT NO; POSITIVE DIFFERENTIAL NO; POSITIVE MORPHOLOGY NO
[2018-08-15 16:27] LABS: Vitamin D,25 Hydroxy 30.6 ng/mL (29.95-100.01)
[2018-08-15 16:41] LABS: ALB/GLOB Ratio 0.8 RATIO (0.9-2.4); AST(SGOT) 23 U/L (15-37); Alanine Aminotransfer ALT/SGPT 25 U/L (16-61); Albumin, Serum 3.2 g/dL (3.2-5.0); Alkaline Phosphatase 72 U/L (45-117); Anion Gap 7 (5-15); BUN 11 mg/dL (7-18); BUN/Creat Ratio 12.8 RATIO (10-20); Chloride 104 mmol/L (98-107); Creatinine, Serum 0.86 mg/dL (0.70-1.30); EST Glomerular Filtration Rate 90 mL/min (>60); Est Glom Filt Rate - Afr Amer 109 mL/min (>60); Glucose 90 mg/dL (74-106); Potassium 4.2 mmol/L (3.5-5.1); Protein, Total 7.2 g/dL (6.4-8.2); Sodium Level 141 mmol/L (136-145); Thyroid Stim Hormone (TSH) 3.26 uIU/mL (0.358-3.74)
== END | disposition home or self-care (01) ==
LOC: POLAB3 13:57
PROVIDERS: Family Provider Family Medicine Geriatric Medicine; PCP Family Medicine Geriatric Medicine; Visit Provider Family Medicine Geriatric Medicine
DX: E55.9 Vitamin D deficiency, unspecified (principal); I10 Essential (primary) hypertension
CPT/HCPCS: 36415; 80053; 82306; 84443; 85025

== ENCOUNTER → 2018-09-14 11:50 | Outpatient (CLI) | payer MEDICARE, OTHER, SELFPAY ==
[2018-06-05 13:39] VITALS: BMI 26.6
--- NOTE | 2018-09-14 11:56 | RAD_ITS ---
STUDY: X-RAY - ABDOMEN/PELVIS REASON FOR EXAM: Male, 83 years old. Stomach pain and diarrhea. TECHNIQUE: AP supine and upright views of the abdomen and pelvis. COMPARISON: 07/24/2018 FINDINGS: There is no bowel obstruction. There is air and stool to the level of the rectum. There is no free air. There are surgical clips in the left lower quadrant which are likely from prior hernia repair. There are degenerative changes noted in the spine. RAD/Abd Inc Decub and/or Erect IMPRESSION: No bowel obstruction. Electronically Signed: Rj Garzon, at 18:29 EDT Tel , Service support ,
== END ==
PROVIDERS: Family Provider Family Medicine Geriatric Medicine; PCP Family Medicine Geriatric Medicine; Referring Provider Family Medicine Geriatric Medicine; Visit Provider Family Medicine Geriatric Medicine
DX: R19.7 Diarrhea, unspecified (principal)
CPT/HCPCS: 74019

== ENCOUNTER → 2018-10-24 15:21 | Outpatient (CLI) | payer MEDICARE, OTHER, SELFPAY ==
[2018-06-05 13:39] VITALS: BMI 26.6
== END ==
PROVIDERS: Family Provider Family Medicine Geriatric Medicine; PCP Family Medicine Geriatric Medicine; Referring Provider Nurse Practitioner Adult Health; Visit Provider Nurse Practitioner Adult Health
DX: R30.0 Dysuria (principal)
CPT/HCPCS: 87086; 87088

== ENCOUNTER → 2018-11-13 10:03 | Outpatient (CLI) | payer MEDICARE, OTHER, SELFPAY ==
--- NOTE | 2018-11-13 11:18 | RAD_ITS ---
STUDY: X-RAY - ABDOMEN/PELVIS REASON FOR EXAM: Male, 83 years old. Constipation. TECHNIQUE: 3 frontal images of the abdomen. COMPARISON: September 14, 2018 FINDINGS: Normal visualized lung bases. There is an unremarkable bowel gas pattern. There is no demonstrated free abdominal air. There are surgical coils projecting over the left lower abdomen that may be secondary to prior hernia repair. There are surgical clips within the expected region of the prostate gland as well. There are phleboliths present. There are diffuse degenerative changes of the visualized lumbar spine. RAD/Abdomen Single View IMPRESSION: Nonspecific bowel gas pattern. Electronically Signed: Nena French MD at 19:49 EDT Tel , Service support ,
[2018-11-13 12:22] LABS: Absolute Neutrophil Count 4.9 X10^3/uL (2.0-7.7); Basophil# 0.01 X10^3/uL; Basophil% 0.1 % (0-1); Eosinophil# 0.18 X10^3/uL; Eosinophils% 2.3 % (0-5); Hematocrit 44.8 % (40-54); Hemoglobin 14.9 g/dl (13.0-16.5); Lymphocyte % 25.4 % (19-41); Mean Corp Hgb Conc 33.3 g/gl (32-36); Mean Corpuscular Hgb 32.5 pg (27.0-32.0); Mean Corpuscular Volume 97.6 fL (80-94); Mean Platelet Vol. 11.7 fl (6.2-12.0); Monocyte# 0.76 X10^3/uL; Monocyte% 9.7 % (0-10); Neutrophil % 62.4 % (47-70); Platelet Count 177 K/mm3 (150-450); RBC Distribution Width CV 14.7 % (11.6-14.6); RBC Distribution Width SD 51.6 fl (35.1-43.9); Red Blood Count 4.59 M/mm3 (4.6-6.2); White Blood Count 7.9 K/mm3 (4.4-11.0)
[2018-11-13 12:33] LABS: POSITIVE COUNT NO; POSITIVE DIFFERENTIAL NO; POSITIVE MORPHOLOGY NO
[2018-11-13 12:45] LABS: Vitamin D,25 Hydroxy 28.8 ng/mL (29.95-100.01)
[2018-11-13 12:48] LABS: ALB/GLOB Ratio 0.8 RATIO (0.9-2.4); AST(SGOT) 24 U/L (15-37); Alanine Aminotransfer ALT/SGPT 26 U/L (16-61); Albumin, Serum 3.5 g/dL (3.2-5.0); Alkaline Phosphatase 73 U/L (45-117); Anion Gap 8 (5-15); BUN 15 mg/dL (7-18); BUN/Creat Ratio 16.6 RATIO (10-20); Calcium,Total 8.9 mg/dL (8.5-10.1); Chloride 104 mmol/L (98-107); EST Glomerular Filtration Rate 85 mL/min (>60); Est Glom Filt Rate - Afr Amer 103 mL/min (>60); Globulin 4.3 g/dL (2.2-4.2); Glucose 151 mg/dL (74-106); Protein, Total 7.8 g/dL (6.4-8.2); Sodium Level 142 mmol/L (136-145); Thyroid Stim Hormone (TSH) 4.22 uIU/mL (0.358-3.74)
== END ==
LOC: POLAB3 10:04 → RAD 11:10
PROVIDERS: Family Provider Family Medicine Geriatric Medicine; PCP Family Medicine Geriatric Medicine; Referring Provider Family Medicine Geriatric Medicine; Visit Provider Family Medicine Geriatric Medicine
DX: K56.41 Fecal impaction (principal); E55.9 Vitamin D deficiency, unspecified; I10 Essential (primary) hypertension
CPT/HCPCS: 36415; 74018; 80053; 82306; 84443; 85025; 87493

== ENCOUNTER → 2019-01-01 09:43 | Outpatient (CLI) | payer MEDICARE, OTHER, SELFPAY ==
[2018-06-05 13:39] VITALS: BMI 26.6
== END ==
PROVIDERS: Family Provider Family Medicine Geriatric Medicine; PCP Family Medicine Geriatric Medicine; Visit Provider Family Medicine Geriatric Medicine
DX: E03.9 Hypothyroidism, unspecified (principal)
CPT/HCPCS: 36415; 84443

== ENCOUNTER → 2019-02-09 10:15 | Outpatient (CLI) | payer MEDICARE, OTHER, SELFPAY ==
[2018-06-05 13:39] VITALS: BMI 26.6
[2019-02-09 12:26] LABS: Absolute Lymphocyte Count 2.07 X10^3/uL (0.83-4.51); Absolute Neutrophil Count 4.5 X10^3/uL (2.0-7.7); Basophil# 0.07 X10^3/uL; Basophil% 0.9 % (0-1); Eosinophils% 3.9 % (0-5); Hematocrit 45.3 % (40-54); Hemoglobin 14.7 g/dL (13.0-16.5); Lymphocyte # 2.07 X10^3/ul (4.0); Lymphocyte % 26.6 % (19-41); Mean Corp Hgb Conc 32.5 g/dL (32-36); Mean Corpuscular Hgb 32.9 pg (27.0-32.0); Mean Corpuscular Volume 101.3 fL (80-94); Mean Platelet Vol. 11.8 fl (6.2-12.0); Monocyte# 0.78 X10^3/uL; NRBC Flagged by Analyzer 0 % (0-5); Neutrophil # 4.54 X10^3/uL (2.7-7.7); Neutrophil % 58.2 % (47-70); Platelet Count 187 K/mm3 (150-450); RBC Distribution Width CV 15.1 % (11.6-14.6); RBC Distribution Width SD 57.1 fl (35.1-43.9); Red Blood Count 4.47 M/mm3 (4.6-6.2); White Blood Count 7.8 K/mm3 (4.4-11.0)
[2019-02-09 12:42] LABS: Vitamin D,25 Hydroxy 28.6 ng/mL (29.95-100.01)
[2019-02-09 12:54] LABS: ALB/GLOB Ratio 0.9 RATIO (0.9-2.4); AST(SGOT) 22 U/L (15-37); Alanine Aminotransfer ALT/SGPT 21 U/L (16-61); Albumin, Serum 3.6 g/dL (3.2-5.0); Alkaline Phosphatase 79 U/L (45-117); Anion Gap 7 (5-15); BUN 14 mg/dL (7-18); BUN/Creat Ratio 15.2 RATIO (10-20); Calcium,Total 8.8 mg/dL (8.5-10.1); Chloride 106 mmol/L (98-107); Creatinine, Serum 0.92 mg/dL (0.70-1.30); EST Glomerular Filtration Rate 83 mL/min (>60); Est Glom Filt Rate - Afr Amer 101 mL/min (>60); Globulin 3.8 g/dL (2.2-4.2); Glucose 145 mg/dL (74-106); Potassium 4.1 mmol/L (3.5-5.1); Protein, Total 7.4 g/dL (6.4-8.2); Sodium Level 144 mmol/L (136-145); Thyroid Stim Hormone (TSH) 3.56 uIU/mL (0.358-3.74)
== END ==
PROVIDERS: Family Provider Family Medicine Geriatric Medicine; PCP Family Medicine Geriatric Medicine; Visit Provider Family Medicine Geriatric Medicine
DX: E55.9 Vitamin D deficiency, unspecified (principal); I10 Essential (primary) hypertension
CPT/HCPCS: 36415; 80053; 82306; 84443; 85025

== ENCOUNTER → 2019-05-10 10:27 | Outpatient (CLI) | payer MEDICARE, OTHER, SELFPAY ==
[2019-02-19 13:39] VITALS: BMI 25.5
[2019-05-10 12:38] LABS: Absolute Neutrophil Count 4.8 X10^3/uL (2.0-7.7); Basophil# 0.06 X10^3/uL; Basophil% 0.7 % (0-1); Eosinophil# 0.56 X10^3/uL; Eosinophils% 6.6 % (0-5); Hemoglobin 15.2 g/dL (13.0-16.5); Lymphocyte % 24.7 % (19-41); Mean Corpuscular Hgb 33.6 pg (27.0-32.0); Mean Corpuscular Volume 101.5 fL (80-94); Monocyte# 0.89 X10^3/uL; Monocyte% 10.5 % (0-10); NRBC Flagged by Analyzer 0 % (0-5); Neutrophil # 4.84 X10^3/uL (2.7-7.7); Neutrophil % 56.9 % (47-70); Platelet Count 191 K/mm3 (150-450); RBC Distribution Width CV 14.4 % (11.6-14.6); RBC Distribution Width SD 54.5 fl (35.1-43.9); Red Blood Count 4.53 M/mm3 (4.6-6.2); White Blood Count 8.5 K/mm3 (4.4-11.0)
[2019-05-10 12:54] LABS: Vitamin D,25 Hydroxy 29.9 ng/mL (29.95-100.01)
[2019-05-10 13:01] LABS: ALB/GLOB Ratio 0.9 RATIO (0.9-2.4); AST(SGOT) 25 U/L (15-37); Alanine Aminotransfer ALT/SGPT 26 U/L (16-61); Albumin, Serum 3.6 g/dL (3.2-5.0); Alkaline Phosphatase 83 U/L (45-117); Anion Gap 4 (5-15); BUN 15 mg/dL (7-18); BUN/Creat Ratio 16.1 RATIO (10-20); Calcium,Total 9.1 mg/dL (8.5-10.1); Chloride 103 mmol/L (98-107); Creatinine, Serum 0.93 mg/dL (0.70-1.30); EST Glomerular Filtration Rate 82 mL/min (>60); Est Glom Filt Rate - Afr Amer 99 mL/min (>60); Globulin 3.9 g/dL (2.2-4.2); Glucose 124 mg/dL (74-106); Potassium 4.1 mmol/L (3.5-5.1); Protein, Total 7.5 g/dL (6.4-8.2); Sodium Level 139 mmol/L (136-145)
== END ==
PROVIDERS: Family Provider Family Medicine Geriatric Medicine; Visit Provider Family Medicine Geriatric Medicine
DX: E55.9 Vitamin D deficiency, unspecified (principal); I10 Essential (primary) hypertension
CPT/HCPCS: 36415; 80053; 82306; 84443; 85025

== ENCOUNTER → 2019-06-13 12:03 | Outpatient (CLI) | payer MEDICARE, OTHER, SELFPAY ==
[2019-02-19 13:39] VITALS: BMI 25.5
[2019-06-13 12:35] LABS: Absolute Lymphocyte Count 1.72 X10^3/uL (0.83-4.51); Absolute Neutrophil Count 5.1 X10^3/uL (2.0-7.7); Basophil# 0.05 X10^3/uL; Basophil% 0.6 % (0-1); Eosinophil# 0.15 X10^3/uL; Eosinophils% 1.9 % (0-5); Hematocrit 44.6 % (40-54); Hemoglobin 14.8 g/dL (13.0-16.5); Lymphocyte # 1.72 X10^3/ul (4.0); Lymphocyte % 21.9 % (19-41); Mean Corp Hgb Conc 33.2 g/dL (32-36); Mean Corpuscular Hgb 33.6 pg (27.0-32.0); Mean Corpuscular Volume 101.1 fL (80-94); Mean Platelet Vol. 11.2 fl (6.2-12.0); Monocyte# 0.84 X10^3/uL; Monocyte% 10.7 % (0-10); NRBC Flagged by Analyzer 0 % (0-5); Neutrophil # 5.08 X10^3/uL (2.7-7.7); Neutrophil % 64.5 % (47-70); Platelet Count 186 K/mm3 (150-450); RBC Distribution Width CV 14.5 % (11.6-14.6); Red Blood Count 4.41 M/mm3 (4.6-6.2); White Blood Count 7.9 K/mm3 (4.4-11.0)
[2019-06-13 13:17] LABS: Anion Gap 3 (5-15); BUN 13 mg/dL (7-18); BUN/Creat Ratio 14.9 RATIO (10-20); CPK Total, Creatine Kinase 66 U/L (39-308); Calcium,Total 9.2 mg/dL (8.5-10.1); Chloride 105 mmol/L (98-107); Creatinine, Serum 0.87 mg/dL (0.70-1.30); EST Glomerular Filtration Rate 89 mL/min (>60); Est Glom Filt Rate - Afr Amer 108 mL/min (>60); Glucose 114 mg/dL (70-110); Potassium 4.1 mmol/L (3.5-5.1); Sodium Level 140 mmol/L (136-145)
[2019-06-15 15:19] LABS: Myoglobin, Serum 55 ng/mL (28-72)
== END ==
PROVIDERS: Visit Provider Family Medicine Geriatric Medicine
DX: R55 Syncope and collapse (principal)
CPT/HCPCS: 36415; 80048; 82550; 83874; 84484; 85025

== ENCOUNTER → 2019-08-08 11:02 | Outpatient (CLI) | payer MEDICARE, OTHER, SELFPAY ==
[2019-02-19 13:39] VITALS: BMI 25.5
[2019-08-08 11:58] LABS: Absolute Lymphocyte Count 1.56 X10^3/uL (0.83-4.51); Absolute Neutrophil Count 4.8 X10^3/uL (2.0-7.7); Basophil# 0.04 X10^3/uL; Basophil% 0.5 % (0-1); Eosinophil# 0.23 X10^3/uL; Eosinophils% 3.1 % (0-5); Hematocrit 44.2 % (40-54); Hemoglobin 15.2 g/dL (13.0-16.5); Lymphocyte # 1.56 X10^3/ul (4.0); Lymphocyte % 20.9 % (19-41); Mean Corp Hgb Conc 34.4 g/dL (32-36); Mean Corpuscular Hgb 35.4 pg (27.0-32.0); Mean Platelet Vol. 11.4 fl (6.2-12.0); Monocyte# 0.77 X10^3/uL; Monocyte% 10.3 % (0-10); NRBC Flagged by Analyzer 0 % (0-5); Neutrophil # 4.82 X10^3/uL (2.7-7.7); Neutrophil % 64.5 % (47-70); Platelet Count 181 K/mm3 (150-450); RBC Distribution Width CV 15.2 % (11.6-14.6); RBC Distribution Width SD 56.8 fl (35.1-43.9); Red Blood Count 4.29 M/mm3 (4.6-6.2); White Blood Count 7.5 K/mm3 (4.4-11.0)
[2019-08-08 12:12] LABS: Vitamin D,25 Hydroxy 27.7 ng/mL
[2019-08-08 12:22] LABS: ALB/GLOB Ratio 0.9 RATIO (0.9-2.4); AST(SGOT) 22 U/L (15-37); Alanine Aminotransfer ALT/SGPT 25 U/L (16-61); Albumin, Serum 3.7 g/dL (3.2-5.0); Alkaline Phosphatase 76 U/L (45-117); Anion Gap 4 (5-15); BUN 20 mg/dL (7-18); BUN/Creat Ratio 19.2 RATIO (10-20); Chloride 103 mmol/L (98-107); Creatinine, Serum 1.04 mg/dL (0.70-1.30); EST Glomerular Filtration Rate 72 mL/min (>60); Est Glom Filt Rate - Afr Amer 87 mL/min (>60); Globulin 3.9 g/dL (2.2-4.2); Glucose 124 mg/dL (74-106); Potassium 4.2 mmol/L (3.5-5.1); Protein, Total 7.6 g/dL (6.4-8.2); Sodium Level 140 mmol/L (136-145); Thyroid Stim Hormone (TSH) 2.22 uIU/mL (0.358-3.74)
== END ==
PROVIDERS: PCP Family Medicine Geriatric Medicine; Visit Provider Family Medicine Geriatric Medicine
DX: E55.9 Vitamin D deficiency, unspecified (principal); I10 Essential (primary) hypertension
CPT/HCPCS: 36415; 80053; 82306; 84443; 85025

== ENCOUNTER 2019-08-17 10:00 | Outpatient (RCR) | payer MEDICARE, OTHER, SELFPAY ==
[2019-02-19 13:39] VITALS: BMI 25.5
--- NOTE | 2019-07-16 07:03 | HP.PTEVAL_ITS ---
Patient's Visit Information ERMA CARLSON is a 84 year old M referred to Physical Therapy by Dr. Eugenio Saleh MD with a diagnosis of Low back pain, balance issues. Date of Evaluation: 07/03/19 Physical Therapist: Austin Nascimento DPT - Visit Plan Frequency: 2x /Week Duration: 4-6 Weeks Plan: *Add piriformis stretch next (particularly for LLE). Continue per POC. - Subjective Subjective: Pt. is here today for his initial evaluation with diagnosis of Low back pain and balance inconsistencies. Pt. has been going to pain management for his low back pain and LLE weakness. Pt. reports having back pain for some time, but has been progressively getting worse. Pt. reports - Pain LBP Pain Intensity (Out of 10): 3 Pain Intensity Range: 1, 6 LLE Pain Intensity (Out of 10): 3 Pain Intensity Range: 1, 5 - Objective POSTURE: Pt. has generally flexed posture, increased thoracic kyphosis, increasd anterior pelvic tilt, and generally flexed posture. PALPATION: Pt. has soreness at bilateral erectors spinea of lumbar spine. No hip pain. NEURO: Normal DTR bilaterally, normal sensation bilaterally. ROM: Pt. has high HS bilat, very limited hip extension noted bilaterally and lmited hip ER bilat. LUMBAR Spine: flexion min loss increase NW, extension mod/max loss increase NW, SB mod loss bilat increase NW, rotation mod/max loss increase NW. MMT: BLEs- generally 4/5 throughout, except hip abd 4-/5 bilat, hip flexion 4-/5 bilat. Core strength- poor. GAIT: Pt. ambulates without AD, but has flexed posture and frequent stepping stratagies to correct his balance. Stairs: heavy use of B HR, reciprocall pattern noted. Difficult to complete. BALANCE: FGA- 30 indicating high risk for falls. - Goals Goal 1:: LTG: Pt. to be I with HEP for balance and core stability. Goal Time Frame: 4-6 Weeks Goal 2:: STG: Pt. to report decreased pain to 0-2/10 pain with all walking and standing activities. Goal Time Frame: 2-4 Weeks Goal 3:: LTG: Pt. to have increased HS and hip flexor length allowing for improved pelvic positioning. Goal Time Frame: 4-6 Weeks Goal 4:: STG: pt. to sleep throughout the night without increase in symptoms. Goal Time Frame: 2-4 Weeks Goal 5:: LTG: PT. to have increased BLE and core strength increased by 1/2 grade throughout. Goal Time Frame: 4-6 Weeks Goal 6:: LTG: pt. to have increased FGA to 21/20 indicating reduced risk for future falls. Goal Time Frame: 4-6 Weeks - Rehabilitation Potential Physical Therapy Diagnosis: Pt. has signs and symptoms consistent with LBP and balance inconsistencies. Pt. has from xray multiple level DDD, severe in nature. Pt. has increased pain with general mobility, worse with walking and standing. Pt. has limited lumbar ROM and increased pain with most ADLs and mobility. Pt. has increased core weakness and difficulty with balance. Pt. would benefit from PT in order to increase his core stability, BLE strength, general flexibility and dynamic balance. Rehabilitation Potential: Good - Anticipated Interventions Patient/Client Instruction: Educate patient on: Condition, Plan of Care, Risk Factors, Benefits of Fitness Program For the Purpose of:: To foster healthy habits, To improve decision making, To facilitate caregiver knowledge, To improve self management, To prevent re- injury, To improve ability to perform tasks related to life management, To improve tolerance to ADL's Therapeutic Exercise to Include: Strength training, Power training, Body mechanics, Postural training, Flexibilty training, Gait and locomotor training, Neuromotor development, Passive ROM, Active ROM, Dynamic Lumbar Stabilization, Johanna Exercises For the Purpose of:: To decrease pain, To increase ROM, To improve nutrient delivery to tissue, To increase oxygenation perfusion, To improve muscle performance and motor function, To improve ability to perform ADL's, To increase tolerance to activity/condition/position, To improve gait and locomotor functions, To improve health of tissue, To decrease soft tissue restriction, To increase flexibility/ROM, To improve endurance, To improve balance Thank you for the opportunity to evaluate your patient. For Medicare and Medicare HMO plans, please review the plan of care and approve it. It will need to be FAXED BACK to us at [phone] for Medicare purposes. For Medicare only, by signing this I certify the plan of care. Please let me know if there are questions or concerns regarding this plan of care. Physician Signature: Date:
== END 2019-08-17 17:00 | disposition home or self-care (01) ==
LOC: PT 10:00
PROVIDERS: PCP Family Medicine Geriatric Medicine; Referring Provider Anesthesiology Pain Medicine; Visit Provider Anesthesiology Pain Medicine
DX: M54.9 Dorsalgia, unspecified (principal); R26.89 Other abnormalities of gait and mobility
CPT/HCPCS: 97110; 97161; 97530

== ENCOUNTER → 2019-11-07 11:02 | Outpatient (CLI) | payer MEDICARE, OTHER, SELFPAY ==
[2019-02-19 13:39] VITALS: BMI 25.5
[2019-08-22 14:15] VITALS: BMI 25.5
[2019-11-07 12:27] LABS: Absolute Lymphocyte Count 1.68 X10^3/uL (0.83-4.51); Absolute Neutrophil Count 4.8 X10^3/uL (2.0-7.7); Basophil# 0.06 X10^3/uL; Basophil% 0.8 % (0-1); Eosinophil# 0.23 X10^3/uL; Hemoglobin 14.2 g/dL (13.0-16.5); Lymphocyte # 1.68 X10^3/ul (4.0); Mean Corpuscular Hgb 33.9 pg (27.0-32.0); Mean Corpuscular Volume 102.6 fL (80-94); Mean Platelet Vol. 11.4 fl (6.2-12.0); Monocyte# 0.79 X10^3/uL; Monocyte% 10.4 % (0-10); NRBC Flagged by Analyzer 0 % (0-5); Neutrophil # 4.82 X10^3/uL (2.7-7.7); Neutrophil % 63.3 % (47-70); Platelet Count 178 K/mm3 (150-450); RBC Distribution Width CV 14.5 % (11.6-14.6); RBC Distribution Width SD 54.4 fl (35.1-43.9); Red Blood Count 4.19 M/mm3 (4.6-6.2); White Blood Count 7.6 K/mm3 (4.4-11.0)
[2019-11-07 12:49] LABS: ALB/GLOB Ratio 0.9 RATIO (0.9-2.4); AST(SGOT) 16 U/L (15-37); Alanine Aminotransfer ALT/SGPT 25 U/L (16-61); Albumin, Serum 3.5 g/dL (3.2-5.0); Alkaline Phosphatase 73 U/L (45-117); Anion Gap 4 (5-15); BUN 23 mg/dL (7-18); BUN/Creat Ratio 24.8 RATIO (10-20); Calcium,Total 8.7 mg/dL (8.5-10.1); Chloride 105 mmol/L (98-107); Creatinine, Serum 0.93 mg/dL (0.70-1.30); EST Glomerular Filtration Rate 83 mL/min (>60); Est Glom Filt Rate - Afr Amer 100 mL/min (>60); Globulin 3.9 g/dL (2.2-4.2); Glucose 75 mg/dL (74-106); Potassium 4.2 mmol/L (3.5-5.1); Protein, Total 7.4 g/dL (6.4-8.2); Sodium Level 141 mmol/L (136-145); Thyroid Stim Hormone (TSH) 1.96 uIU/mL (0.358-3.74)
== END ==
PROVIDERS: Family Provider Family Medicine Geriatric Medicine; Visit Provider Family Medicine Geriatric Medicine
DX: I10 Essential (primary) hypertension (principal); E55.9 Vitamin D deficiency, unspecified; E05.90 Thyrotoxicosis, unspecified without thyrotoxic crisis or storm
CPT/HCPCS: 36415; 80053; 82306; 84443; 85025

== ENCOUNTER → 2019-12-27 13:03 | Outpatient (CLI) | payer MEDICARE, OTHER, SELFPAY ==
[2019-08-22 14:15] VITALS: BMI 25.5
--- NOTE | 2019-12-27 13:08 | RAD_ITS ---
STUDY: X-RAY - LUMBAR SPINE REASON FOR EXAM: Male, 84 years old. LOWER BACK PAIN X 20 YEARS TECHNIQUE: 3 view(s) of the lumbar spine were obtained. COMPARISON: 2017 FINDINGS: Normal lumbar lordosis. There is no substantial scoliosis. There is a normal alignment of the vertebrae. There is diffuse demineralization with multi-level endplate spondylosis. There is multi-level degenerative disc disease with multi-level disc space narrowing. There is no demonstrated fracture. There is atherosclerotic calcification of the abdominal aorta without a demonstrated aneurysm. RAD/Lumbar Spine 2 or 3 Views IMPRESSION: Stable significant degenerative changes of the spine, as detailed above. No acute fracture or significant interval change Electronically Signed: Yann Swanson MD at 13:40 EDT , Service support ,
--- NOTE | 2019-12-27 13:08 | RAD_ITS ---
STUDY: X-RAY - THORACIC SPINE REASON FOR EXAM: Male, 84 years old. LOWER BACK PAIN X 20 YEARS TECHNIQUE: 3 view(s) of the thoracic spine were obtained. COMPARISON: None. FINDINGS: Normal kyphosis of the thoracic spine. There is no substantial scoliosis. There is demineralization of the thoracic spine with endplate spondylosis. There is multilevel disc space narrowing of the thoracic spine. The soft tissue structures are unremarkable. RAD/Thoracic Spine 3 Views IMPRESSION: Multilevel degenerative changes, no acute findings Electronically Signed: Yann Swanson MD at 13:39 EDT , Service support ,
== END ==
PROVIDERS: PCP Family Medicine Geriatric Medicine; Referring Provider Anesthesiology Pain Medicine; Visit Provider Anesthesiology Pain Medicine
DX: M54.9 Dorsalgia, unspecified (principal)
CPT/HCPCS: 72072; 72100

== ENCOUNTER → 2020-02-14 13:36 | Outpatient (CLI) | payer MEDICARE, OTHER, SELFPAY ==
[2019-08-22 14:15] VITALS: BMI 25.5
[2020-02-14 15:53] LABS: Absolute Lymphocyte Count 1.98 X10^3/uL (0.83-4.51); Absolute Neutrophil Count 4.9 X10^3/uL (2.0-7.7); Basophil# 0.04 X10^3/uL; Basophil% 0.5 % (0-1); Eosinophil# 0.16 X10^3/uL; Hematocrit 42.2 % (40-54); Hemoglobin 13.9 g/dL (13.0-16.5); Lymphocyte # 1.98 X10^3/ul (4.0); Lymphocyte % 24.5 % (19-41); Mean Corp Hgb Conc 32.9 g/dL (32-36); Mean Corpuscular Hgb 34.1 pg (27.0-32.0); Mean Corpuscular Volume 103.4 fL (80-94); Mean Platelet Vol. 10.9 fl (6.2-12.0); Monocyte# 0.99 X10^3/uL; Monocyte% 12.3 % (0-10); NRBC Flagged by Analyzer 0 % (0-5); Neutrophil # 4.87 X10^3/uL (2.7-7.7); Neutrophil % 60.3 % (47-70); Platelet Count 195 K/mm3 (150-450); RBC Distribution Width CV 14.2 % (11.6-14.6); Red Blood Count 4.08 M/mm3 (4.6-6.2); White Blood Count 8.1 K/mm3 (4.4-11.0)
[2020-02-14 16:09] LABS: Vitamin D,25 Hydroxy 31.3 ng/mL
[2020-02-14 16:14] LABS: ALB/GLOB Ratio 0.9 RATIO (0.9-2.4); AST(SGOT) 25 U/L (15-37); Alanine Aminotransfer ALT/SGPT 31 U/L (16-61); Albumin, Serum 3.4 g/dL (3.2-5.0); Alkaline Phosphatase 77 U/L (45-117); Anion Gap 3 (5-15); BUN 18 mg/dL (7-18); BUN/Creat Ratio 18.4 RATIO (10-20); Chloride 106 mmol/L (98-107); Creatinine, Serum 0.98 mg/dL (0.70-1.30); EST Glomerular Filtration Rate 78 mL/min (>60); Est Glom Filt Rate - Afr Amer 94 mL/min (>60); Globulin 3.8 g/dL (2.2-4.2); Glucose 132 mg/dL (74-106); Potassium 4.3 mmol/L (3.5-5.1); Protein, Total 7.2 g/dL (6.4-8.2); Sodium Level 141 mmol/L (136-145); Thyroid Stim Hormone (TSH) 2.32 uIU/mL (0.358-3.74)
== END ==
PROVIDERS: PCP Family Medicine Geriatric Medicine; Visit Provider Family Medicine Geriatric Medicine
DX: I10 Essential (primary) hypertension (principal); E55.9 Vitamin D deficiency, unspecified
CPT/HCPCS: 36415; 80053; 82306; 84443; 85025

== ENCOUNTER → 2020-05-23 09:16 | Outpatient (CLI) | payer MEDICARE, OTHER, SELFPAY ==
[2020-05-12 14:45] VITALS: BMI 25.0
--- NOTE | 2020-05-23 09:20 | ECHOD_ITS ---
Reason For Study: Murmur Procedure This was a 2D Doppler, Color Flow transthoracic echocardiogram. The study was technically difficult. Exam performed in department. Left Ventricle Normal LV size. Severe concentric left ventricular hypertrophy. Left ventricular systolic function is normal. The estimated ejection fraction is 60 %. There is evidence of diastolic dysfunction. No regional wall motion abnormalities noted. Right Ventricle Normal RV size. ICD or pacer leads identified within the right ventricle. Normal systolic function. Atria The left atrium is mildly enlarged. Normal right atrium. ICD or pacer leads identified within the right atrium. No doppler evidence for ASD. Mitral Valve There is severe mitral annular calcification. Extension of the mitral annular calcification onto the mitral valve leaflets. Mild mitral valve stenosis. Mild (1+) mitral valve insufficiency. Tricuspid Valve Normal tricuspid valve. Mild tricuspid valve insufficiency. Right ventricular systolic pressure estimated to be 29 mmHg. Aortic Valve The aortic valve is not well visualized, however, based upon the 2D echocardiographic images obtained, there appears to be thickening and calcification and partial restriction. Moderate aortic stenosis. Trivial aortic valve insufficiency. Pulmonic Valve The pulmonic valve is not well visualized. Trivial pulmonic valve insufficiency. Great Vessels The aortic root is not well visualized. Pericardium/Pleural No pericardial effusion. MMode/2D Measurements & Calculations LVIDd: 4.2 cm IVSd: 2.1 cm LVOT diam: 2.0 cm LVIDs: 2.6 cm LVPWd: 1.6 cm LVOT area: 3.2 cm2 RVDd: 2.7 cm FS: 37.0 % LAV(MOD-bp): 81.6 ml LVAd ap4: 32.5 cm2 SV(MOD-sp4): 60.0 ml LAV(MOD-bp) Indexed: 42.9 ml/m2 EDV(MOD-sp4): 95.5 ml LAV(MOD-sp2): 94.8 ml EDV(sp4-el): 98.1 ml LAV(MOD-sp4): 71.1 ml LVAs ap4: 17.8 cm2 ESV(MOD-sp4): 35.5 ml ESV(sp4-el): 34.3 ml EF(MOD-sp4): 62.8 % EF(sp4-el): 65.1 % SV(sp4-el): 63.9 ml LA A4 area: 24.5 cm2 LA dimension(2D): 2.9 cm RA A4 area: 15.2 cm2 Doppler Measurements & Calculations MV E max asif: 79.4 cm/sec Lat Peak E' Asif: 3.5 cm/sec Med Peak E' Asif: 2.6 cm/sec MV A max asif: 148.0 cm/sec E/E' lat: 22.4 E/E' med: 30.7 MV E/A: 0.54 MV V2 max: 164.8 cm/sec Ao V2 max: 347.9 cm/sec AI max asif: 435.5 cm/sec MV max P.9 mmHg Ao max P.5 mmHg AI max P.9 mmHg MV V2 mean: 81.5 cm/sec Ao V2 mean: 237.3 cm/sec MV mean P.1 mmHg Ao mean P.2 mmHg AI dec slope: 201.6 cm/sec2 MV V2 VTI: 57.0 cm Ao V2 VTI: 74.8 cm AI P1/2t: 632.7 msec MVA(VTI): 1.6 cm2 MICHELLE(I,D): 1.2 cm2 MICHELLE(V,D): 1.1 cm2 LV V1 max: 121.3 cm/sec SV(LVOT): 91.9 ml PA V2 max: 69.2 cm/sec LV V1 max P.9 mmHg LV V1 mean P.3 mmHg LV V1 mean: 86.7 cm/sec LV V1 VTI: 28.6 cm TR max asif: 256.7 cm/sec TR max P.4 mmHg Interpretation Summary The study was technically difficult. Left ventricular systolic function is normal. The estimated ejection fraction is 60 %. Severe concentric left ventricular hypertrophy. The left atrium is mildly enlarged. There is severe mitral annular calcification. Extension of the mitral annular calcification onto the mitral valve leaflets. Mild mitral valve stenosis. Mild (1+) mitral valve insufficiency. Mild tricuspid valve insufficiency. Moderate aortic stenosis. Trivial aortic valve insufficiency. Trivial pulmonic valve insufficiency. Right ventricular systolic pressure estimated to be 29 mmHg. There is evidence of diastolic dysfunction. Ordering Physician: Ramirez Toth Referring Physician: Bishop Ames Chi Performed By: Elissa Bettencourt, DAKOATH, RVT
== END ==
PROVIDERS: PCP Family Medicine Geriatric Medicine; Referring Provider Internal Medicine Cardiovascular Disease; Visit Provider Internal Medicine Cardiovascular Disease
DX: R01.1 Cardiac murmur, unspecified (principal); I35.2 Nonrheumatic aortic (valve) stenosis with insufficiency
CPT/HCPCS: 93306

== ENCOUNTER → 2020-05-29 10:02 | Outpatient (CLI) | payer MEDICARE, OTHER, SELFPAY ==
[2020-05-12 14:45] VITALS: BMI 25.0
[2020-05-29 12:12] LABS: Absolute Lymphocyte Count 1.65 X10^3/uL (0.83-4.51); Absolute Neutrophil Count 6.2 X10^3/uL (2.0-7.7); Basophil# 0.07 X10^3/uL; Basophil% 0.8 % (0-1); Eosinophil# 0.34 X10^3/uL; Eosinophils% 3.7 % (0-5); Hematocrit 41.5 % (40-54); Hemoglobin 13.2 g/dL (13.0-16.5); Lymphocyte # 1.65 X10^3/ul (4.0); Lymphocyte % 18.1 % (19-41); Mean Corp Hgb Conc 31.8 g/dL (32-36); Mean Corpuscular Hgb 32.4 pg (27.0-32.0); Mean Corpuscular Volume 101.7 fL (80-94); Mean Platelet Vol. 11.9 fl (6.2-12.0); Monocyte# 0.85 X10^3/uL; Monocyte% 9.3 % (0-10); NRBC Flagged by Analyzer 0 % (0-5); Neutrophil # 6.17 X10^3/uL (2.7-7.7); Neutrophil % 67.7 % (47-70); Platelet Count 202 K/mm3 (150-450); RBC Distribution Width CV 14.6 % (11.6-14.6); RBC Distribution Width SD 55.2 fl (35.1-43.9); Red Blood Count 4.08 M/mm3 (4.6-6.2); White Blood Count 9.1 K/mm3 (4.4-11.0)
[2020-05-29 12:40] LABS: ALB/GLOB Ratio 0.8 RATIO (0.9-2.4); AST(SGOT) 21 U/L (15-37); Alanine Aminotransfer ALT/SGPT 19 U/L (16-61); Albumin, Serum 3.4 g/dL (3.2-5.0); Alkaline Phosphatase 81 U/L (45-117); Anion Gap 5 (5-15); BUN 13 mg/dL (7-18); BUN/Creat Ratio 13.3 RATIO (10-20); Calcium,Total 8.5 mg/dL (8.5-10.1); Chloride 105 mmol/L (98-107); Creatinine, Serum 0.98 mg/dL (0.70-1.30); EST Glomerular Filtration Rate 77 mL/min (>60); Est Glom Filt Rate - Afr Amer 94 mL/min (>60); Glucose 167 mg/dL (74-106); Potassium 3.7 mmol/L (3.5-5.1); Protein, Total 7.4 g/dL (6.4-8.2); Sodium Level 140 mmol/L (136-145)
== END ==
PROVIDERS: PCP Family Medicine Geriatric Medicine; Visit Provider Family Medicine Geriatric Medicine
DX: I10 Essential (primary) hypertension (principal); E55.9 Vitamin D deficiency, unspecified
CPT/HCPCS: 36415; 80053; 82306; 84443; 85025

== ENCOUNTER → 2020-08-27 11:18 | Outpatient (CLI) | payer MEDICARE, OTHER, SELFPAY ==
[2020-05-12 14:45] VITALS: BMI 25.0
[2020-08-27 12:03] LABS: Absolute Lymphocyte Count 1.53 X10^3/uL (0.83-4.51); Absolute Neutrophil Count 3.9 X10^3/uL (2.0-7.7); Basophil# 0.05 X10^3/uL; Basophil% 0.8 % (0-1); Eosinophil# 0.21 X10^3/uL; Eosinophils% 3.2 % (0-5); Hematocrit 46.3 % (40-54); Hemoglobin 15.4 g/dL (13.0-16.5); Lymphocyte # 1.53 X10^3/ul (0.83-4.51); Lymphocyte % 23.5 % (19-41); Mean Corp Hgb Conc 33.3 g/dL (32-36); Mean Corpuscular Hgb 33.2 pg (27.0-32.0); Mean Corpuscular Volume 99.8 fL (80-94); Mean Platelet Vol. 12.2 fl (6.2-12.0); Monocyte# 0.81 X10^3/uL; Monocyte% 12.4 % (0-10); NRBC Flagged by Analyzer 0 % (0-5); Neutrophil # 3.88 X10^3/uL (2.7-7.7); Neutrophil % 59.6 % (47-70); Platelet Count 201 K/mm3 (150-450); RBC Distribution Width SD 51.7 fl (35.1-43.9); Red Blood Count 4.64 M/mm3 (4.6-6.2); White Blood Count 6.5 K/mm3 (4.4-11.0)
[2020-08-27 12:20] LABS: Vitamin D,25 Hydroxy 23.5 ng/mL
[2020-08-27 12:30] LABS: ALB/GLOB Ratio 0.9 RATIO (0.9-2.4); AST(SGOT) 19 U/L (15-37); Alanine Aminotransfer ALT/SGPT 20 U/L (16-61); Albumin, Serum 3.6 g/dL (3.2-5.0); Alkaline Phosphatase 77 U/L (45-117); Anion Gap 3 (5-15); BUN 15 mg/dL (7-18); BUN/Creat Ratio 14.6 RATIO (10-20); Chloride 104 mmol/L (98-107); Creatinine, Serum 1.03 mg/dL (0.70-1.30); EST Glomerular Filtration Rate 73 mL/min (>60); Est Glom Filt Rate - Afr Amer 88 mL/min (>60); Globulin 4.2 g/dL (2.2-4.2); Glucose 173 mg/dL (74-106); Potassium 3.9 mmol/L (3.5-5.1); Protein, Total 7.8 g/dL (6.4-8.2); Sodium Level 139 mmol/L (136-145); Thyroid Stim Hormone (TSH) 2.85 uIU/mL (0.358-3.74)
== END ==
PROVIDERS: PCP Family Medicine Geriatric Medicine; Visit Provider Family Medicine Geriatric Medicine
DX: I10 Essential (primary) hypertension (principal); E55.9 Vitamin D deficiency, unspecified
CPT/HCPCS: 36415; 80053; 82306; 84443; 85025

== ENCOUNTER → 2020-12-10 09:08 | Outpatient (CLI) | payer MEDICARE, OTHER, SELFPAY ==
[2020-05-12 14:45] VITALS: BMI 25.0
[2020-12-10 12:37] LABS: Absolute Lymphocyte Count 1.33 X10^3/uL (0.83-4.51); Absolute Neutrophil Count 4.6 X10^3/uL (2.0-7.7); Basophil# 0.05 X10^3/uL; Basophil% 0.7 % (0-1); Eosinophil# 0.33 X10^3/uL; Eosinophils% 4.6 % (0-5); Hematocrit 43.9 % (40-54); Hemoglobin 14.4 g/dL (13.0-16.5); Lymphocyte # 1.33 X10^3/ul (0.83-4.51); Lymphocyte % 18.7 % (19-41); Mean Corp Hgb Conc 32.8 g/dL (32-36); Mean Corpuscular Hgb 33.1 pg (27.0-32.0); Mean Corpuscular Volume 100.9 fL (80-94); Mean Platelet Vol. 12.2 fl (6.2-12.0); Monocyte# 0.78 X10^3/uL; Monocyte% 10.9 % (0-10); NRBC Flagged by Analyzer 0 % (0-5); Neutrophil % 64.5 % (47-70); Platelet Count 196 K/mm3 (150-450); RBC Distribution Width SD 56.6 fl (35.1-43.9); Red Blood Count 4.35 M/mm3 (4.6-6.2); White Blood Count 7.1 K/mm3 (4.4-11.0)
[2020-12-10 12:53] LABS: Vitamin D,25 Hydroxy 49.4 ng/mL
[2020-12-10 13:06] LABS: ALB/GLOB Ratio 0.9 RATIO (0.9-2.4); AST(SGOT) 13 U/L (15-37); Alanine Aminotransfer ALT/SGPT 21 U/L (16-61); Albumin, Serum 3.4 g/dL (3.2-5.0); Alkaline Phosphatase 72 U/L (45-117); Anion Gap 5 (5-15); BUN 17 mg/dL (7-18); BUN/Creat Ratio 18.9 RATIO (10-20); Calcium,Total 8.7 mg/dL (8.5-10.1); Chloride 106 mmol/L (98-107); EST Glomerular Filtration Rate 85 mL/min (>60); Est Glom Filt Rate - Afr Amer 103 mL/min (>60); Globulin 3.8 g/dL (2.2-4.2); Glucose 150 mg/dL (74-106); Potassium 3.9 mmol/L (3.5-5.1); Protein, Total 7.2 g/dL (6.4-8.2); Sodium Level 140 mmol/L (136-145); Thyroid Stim Hormone (TSH) 2.02 uIU/mL (0.358-3.74)
== END ==
PROVIDERS: PCP Family Medicine Geriatric Medicine; Visit Provider Family Medicine Geriatric Medicine
DX: I10 Essential (primary) hypertension (principal); E55.9 Vitamin D deficiency, unspecified
CPT/HCPCS: 36415; 80053; 82306; 84443; 85025

== ENCOUNTER → 2021-02-17 11:55 | Outpatient (CLI) | payer MEDICARE, OTHER, SELFPAY ==
[2021-02-17 12:36] LABS: Absolute Lymphocyte Count 1.48 X10^3/uL (0.83-4.51); Absolute Neutrophil Count 8.1 X10^3/uL (2.0-7.7); Basophil# 0.04 X10^3/uL; Basophil% 0.4 % (0-1); Eosinophil# 0.06 X10^3/uL; Eosinophils% 0.6 % (0-5); Hematocrit 43.7 % (40-54); Hemoglobin 14.5 g/dL (13.0-16.5); Lymphocyte # 1.48 X10^3/ul (0.83-4.51); Lymphocyte % 13.6 % (19-41); Mean Corp Hgb Conc 33.2 g/dL (32-36); Mean Corpuscular Hgb 34.1 pg (27.0-32.0); Mean Corpuscular Volume 102.8 fL (80-94); Mean Platelet Vol. 11.4 fl (6.2-12.0); Monocyte# 1.22 X10^3/uL; Monocyte% 11.2 % (0-10); NRBC Flagged by Analyzer 0 % (0-5); Neutrophil # 8.05 X10^3/uL (2.7-7.7); Neutrophil % 73.7 % (47-70); Platelet Count 200 K/mm3 (150-450); RBC Distribution Width SD 57.4 fl (35.1-43.9); Red Blood Count 4.25 M/mm3 (4.6-6.2); White Blood Count 10.9 K/mm3 (4.4-11.0)
[2021-02-17 13:14] LABS: Vitamin D,25 Hydroxy 36.6 ng/mL
[2021-02-17 13:23] LABS: ALB/GLOB Ratio 0.8 RATIO (0.9-2.4); AST(SGOT) 146 U/L (15-37); Alanine Aminotransfer ALT/SGPT 27 U/L (16-61); Albumin, Serum 3.4 g/dL (3.2-5.0); Alkaline Phosphatase 94 U/L (45-117); Anion Gap 5 (5-15); BUN 14 mg/dL (7-18); BUN/Creat Ratio 13.6 RATIO (10-20); Calcium,Total 9.2 mg/dL (8.5-10.1); Chloride 104 mmol/L (98-107); Creatinine, Serum 1.03 mg/dL (0.70-1.30); EST Glomerular Filtration Rate 73 mL/min (>60); Est Glom Filt Rate - Afr Amer 88 mL/min (>60); Globulin 4.4 g/dL (2.2-4.2); Glucose 139 mg/dL (74-106); Protein, Total 7.8 g/dL (6.4-8.2); Sodium Level 139 mmol/L (136-145); Thyroid Stim Hormone (TSH) 1.64 uIU/mL (0.358-3.74)
== END ==
PROVIDERS: PCP Family Medicine Geriatric Medicine; Visit Provider Family Medicine Geriatric Medicine
DX: I10 Essential (primary) hypertension (principal); E55.9 Vitamin D deficiency, unspecified
CPT/HCPCS: 36415; 80053; 82306; 84443; 85025

== ENCOUNTER 2021-08-24 14:28 | Outpatient (CLI) | payer MEDICARE, OTHER, SELFPAY ==
--- NOTE | 2021-08-24 14:49 | RAD_ITS ---
STUDY: X-RAY - ABDOMEN/PELVIS REASON FOR EXAM: Male, 86 years old. ABD PAIN TECHNIQUE: Two AP supine views of the abdomen and pelvis. COMPARISON: None. FINDINGS: Pacer lead seen along the base of the heart. There is an unremarkable bowel gas pattern. There is no demonstrated free abdominal air. The visualized liver, spleen and kidneys are grossly normal in size and morphology. Multiple Sitzmarkers noted in the left lower quadrant. Brachytherapy beads noted in the prostate There are diffuse degenerative changes of the visualized lumbar spine. RAD/Abdomen Single View IMPRESSION: No acute findings Degenerative bony changes Electronically Signed: Yann Swanson MD at 15:54 EDT ,
--- NOTE | 2021-08-24 14:49 | RAD_ITS ---
STUDY: X-RAY - LUMBOSACRAL SPINE REASON FOR EXAM: Male, 86 years old. LOW BACK PAIN TECHNIQUE: 7 view(s) of the lumbosacral spine were obtained. AP, lateral, bilateral oblique, and lateral views with flexion and extension. COMPARISON: Lumbar spine x-rays 12/27/2019. FINDINGS: Vertebral bodies are normal height. No definite fracture demonstrated. No subluxation. Disc space narrowing with osteophytes at all levels. Facet arthropathy most pronounced in the lower levels. No significant change compared to prior study. There is little change in the lumbar curve on the flexion and extension views. No subluxation with flexion or extension. No paravertebral soft tissue mass identified. Abdominal aortic calcifications. Multiple small densities in the left lower abdomen. RAD/L/S Spine Comp/w Bending Views IMPRESSION: Extensive degenerative changes in the lumbar spine. No significant subluxation with flexion or extension. Electronically Signed: Rina Hoover MD at 5:09 EDT ,
--- NOTE | 2021-08-24 14:49 | RAD_ITS ---
STUDY: X-RAY CHEST REASON FOR EXAM: Male, 86 years old. SHORT OF BREATH TECHNIQUE: PA and lateral. COMPARISON: Chest x-ray from abdominal series 07/21/2018. FINDINGS: LUNGS: No consolidation. No pneumothorax. MEDIASTINUM: Aorta tortuous and atherosclerotic, likely ectatic. CARDIAC SILHOUETTE: Not enlarged. BONES AND SOFT TISSUES: Degenerative changes in the dorsal spine. No acute abnormalities. Pacemaker overlying the left chest with no change in position of the distal leads. RAD/Chest PA and Lateral IMPRESSION: No evidence of active intrathoracic disease. Ectatic aorta. Electronically Signed: Rina Hoover MD at 4:49 EDT ,
[2021-08-24 17:21] LABS: Absolute Lymphocyte Count 1.87 X10^3/uL (0.83-4.51); Absolute Neutrophil Count 4.5 X10^3/uL (2.0-7.7); Basophil# 0.04 X10^3/uL; Basophil% 0.5 % (0-1); Eosinophil# 0.12 X10^3/uL; Eosinophils% 1.6 % (0-5); Hematocrit 48.9 % (40-54); Hemoglobin 16.3 g/dL (13.0-16.5); Lymphocyte # 1.87 X10^3/ul (0.83-4.51); Lymphocyte % 25.2 % (19-41); Mean Corp Hgb Conc 33.3 g/dL (32-36); Mean Corpuscular Hgb 33.1 pg (27.0-32.0); Mean Corpuscular Volume 99.4 fL (80-94); Mean Platelet Vol. 11.9 fl (6.2-12.0); Monocyte% 12.1 % (0-10); NRBC Flagged by Analyzer 0 % (0-5); Neutrophil # 4.47 X10^3/uL (2.7-7.7); Neutrophil % 60.2 % (47-70); Platelet Count 198 K/mm3 (150-450); RBC Distribution Width CV 14.9 % (11.6-14.6); RBC Distribution Width SD 55.3 fl (35.1-43.9); Red Blood Count 4.92 M/mm3 (4.6-6.2); White Blood Count 7.4 K/mm3 (4.4-11.0)
[2021-08-24 17:34] LABS: ALB/GLOB Ratio 0.9 RATIO (0.9-2.4); AST(SGOT) 23 U/L (15-37); Alanine Aminotransfer ALT/SGPT 24 U/L (16-61); Albumin, Serum 3.9 g/dL (3.2-5.0); Alkaline Phosphatase 77 U/L (45-117); Anion Gap 4 (5-15); BUN 15 mg/dL (7-18); BUN/Creat Ratio 14.7 RATIO (10-20); Calcium,Total 9.4 mg/dL (8.5-10.1); Chloride 104 mmol/L (98-107); Creatinine, Serum 1.02 mg/dL (0.70-1.30); EST Glomerular Filtration Rate 74 mL/min (>60); Est Glom Filt Rate - Afr Amer 89 mL/min (>60); Globulin 4.5 g/dL (2.2-4.2); Glucose 131 mg/dL (74-106); Potassium 3.7 mmol/L (3.5-5.1); Protein, Total 8.4 g/dL (6.4-8.2); Sodium Level 139 mmol/L (136-145)
== END 2021-08-24 23:59 | disposition home or self-care (01) ==
LOC: POLAB3 14:30 → RAD 14:48
PROVIDERS: PCP Family Medicine Geriatric Medicine; Referring Provider Family Medicine Geriatric Medicine; Visit Provider Family Medicine Geriatric Medicine
DX: R10.9 Unspecified abdominal pain (principal); N39.0 Urinary tract infection, site not specified; M54.50 Low back pain, unspecified; R06.02 Shortness of breath
CPT/HCPCS: 36415; 71046; 72114; 74018; 80053; 85025; 87086; 87088

== ENCOUNTER 2021-08-26 09:44 | Outpatient (CLI) | payer MEDICARE, OTHER, SELFPAY | END 2021-08-26 23:59 | disposition home or self-care (01) | LOC: PSN 09:46 | PROVIDERS: PCP Family Medicine Geriatric Medicine; Referring Provider Family Medicine Geriatric Medicine; Visit Provider Family Medicine Geriatric Medicine | DX: R68.83 Chills (without fever) (principal); Z20.822 Contact with and (suspected) exposure to COVID-19 | CPT/HCPCS: 87426; 87804; 87807; C9803 ==

== ENCOUNTER → 2021-09-09 | Outpatient (CLI) | payer MEDICARE, OTHER, SELFPAY ==
[2021-09-09 12:47] LABS: Absolute Lymphocyte Count 1.93 X10^3/uL (0.83-4.51); Absolute Neutrophil Count 4.2 X10^3/uL (2.0-7.7); Basophil# 0.05 X10^3/uL; Basophil% 0.7 % (0-1); Eosinophil# 0.31 X10^3/uL; Eosinophils% 4.2 % (0-5); Hematocrit 45.6 % (40-54); Hemoglobin 15.2 g/dL (13.0-16.5); Lymphocyte # 1.93 X10^3/ul (0.83-4.51); Mean Corp Hgb Conc 33.3 g/dL (32-36); Mean Corpuscular Hgb 33.2 pg (27.0-32.0); Mean Corpuscular Volume 99.6 fL (80-94); Mean Platelet Vol. 12.2 fl (6.2-12.0); Monocyte% 12.1 % (0-10); NRBC Flagged by Analyzer 0 % (0-5); Neutrophil # 4.19 X10^3/uL (2.7-7.7); Neutrophil % 56.3 % (47-70); Platelet Count 198 K/mm3 (150-450); RBC Distribution Width CV 15.2 % (11.6-14.6); RBC Distribution Width SD 56.3 fl (35.1-43.9); Red Blood Count 4.58 M/mm3 (4.6-6.2); White Blood Count 7.4 K/mm3 (4.4-11.0)
[2021-09-09 13:02] LABS: Vitamin D,25 Hydroxy 32.9 ng/mL
[2021-09-09 13:25] LABS: ALB/GLOB Ratio 0.9 RATIO (0.9-2.4); AST(SGOT) 25 U/L (15-37); Alanine Aminotransfer ALT/SGPT 20 U/L (16-61); Albumin, Serum 3.6 g/dL (3.2-5.0); Alkaline Phosphatase 73 U/L (45-117); Anion Gap 6 (5-15); BUN 12 mg/dL (7-18); Calcium,Total 9.2 mg/dL (8.5-10.1); Chloride 103 mmol/L (98-107); EST Glomerular Filtration Rate 75 mL/min (>60); Est Glom Filt Rate - Afr Amer 91 mL/min (>60); Globulin 4.1 g/dL (2.2-4.2); Glucose 126 mg/dL (74-106); Potassium 3.9 mmol/L (3.5-5.1); Protein, Total 7.7 g/dL (6.4-8.2); Sodium Level 139 mmol/L (136-145)
== END | disposition home or self-care (01) ==
LOC: POLAB3 09:57
PROVIDERS: PCP Family Medicine Geriatric Medicine; Visit Provider Family Medicine Geriatric Medicine
DX: E11.65 Type 2 diabetes mellitus with hyperglycemia (principal); E55.9 Vitamin D deficiency, unspecified; I10 Essential (primary) hypertension
CPT/HCPCS: 36415; 80053; 82306; 84443; 85025

== ENCOUNTER → 2021-11-04 | Outpatient (CLI) | payer MEDICARE, OTHER, SELFPAY ==
--- NOTE | 2021-11-04 10:48 | RAD_ITS ---
STUDY: X-RAY CHEST REASON FOR EXAM: Male, 86 years old. STONER TECHNIQUE: XR Chest 2 Views COMPARISON: 08.24.21 FINDINGS: Bilateral pleural effusions. There is a left sided pacemaker batterypack. Increased Lung markings may represent pulmonary fibrosis. Normal size heart. Normal mediastinum and magen. Normal visualized pulmonary arteries. There is atherosclerotic calcification of the aortic arch with tortuosity. There are diffuse degenerative changes of the visualized thoracic spine. There is degenerative osteoarthritis of the bilateral shoulders. There is no demonstrated abnormality of the visualized soft tissue structures of the upper abdomen. RAD/Chest PA and Lateral IMPRESSION: Bilateral pleural effusions. Electronically Signed: Petr Smith MD at 15:28 EDT ,
[2021-11-04 11:43] LABS: Absolute Lymphocyte Count 1.07 X10^3/uL (0.83-4.51); Absolute Neutrophil Count 6.4 X10^3/uL (2.0-7.7); Basophil# 0.05 X10^3/uL; Basophil% 0.6 % (0-1); Eosinophil# 0.12 X10^3/uL; Eosinophils% 1.4 % (0-5); Hematocrit 42.5 % (40-54); Hemoglobin 14.3 g/dL (13.0-16.5); Lymphocyte # 1.07 X10^3/ul (0.83-4.51); Lymphocyte % 12.5 % (19-41); Mean Corp Hgb Conc 33.6 g/dL (32-36); Mean Corpuscular Hgb 34.1 pg (27.0-32.0); Mean Corpuscular Volume 101.4 fL (80-94); Mean Platelet Vol. 11.5 fl (6.2-12.0); Monocyte# 0.86 X10^3/uL; NRBC Flagged by Analyzer 0 % (0-5); Neutrophil # 6.41 X10^3/uL (2.7-7.7); Neutrophil % 74.9 % (47-70); Platelet Count 212 K/mm3 (150-450); RBC Distribution Width CV 16.2 % (11.6-14.6); RBC Distribution Width SD 60.1 fl (35.1-43.9); Red Blood Count 4.19 M/mm3 (4.6-6.2); White Blood Count 8.6 K/mm3 (4.4-11.0)
[2021-11-04 12:03] LABS: Anion Gap 8 (5-15); BUN 26 mg/dL (7-18); BUN/Creat Ratio 16.2 RATIO (10-20); Calcium,Total 9.3 mg/dL (8.5-10.1); Chloride 105 mmol/L (98-107); EST Glomerular Filtration Rate 44 mL/min (>60); Est Glom Filt Rate - Afr Amer 53 mL/min (>60); Glucose 125 mg/dL (74-106); Potassium 3.5 mmol/L (3.5-5.1); Sodium Level 140 mmol/L (136-145)
== END | disposition home or self-care (01) ==
PROVIDERS: PCP Family Medicine Geriatric Medicine; Visit Provider Physician Assistant Medical
DX: R06.00 Dyspnea, unspecified (principal); I11.9 Hypertensive heart disease without heart failure; I35.2 Nonrheumatic aortic (valve) stenosis with insufficiency; I49.9 Cardiac arrhythmia, unspecified; E78.5 Hyperlipidemia, unspecified; Z95.0 Presence of cardiac pacemaker
CPT/HCPCS: 36415; 71046; 80048; 83880; 85025

== ENCOUNTER → 2021-11-10 | Outpatient (CLI) | payer MEDICARE, OTHER, SELFPAY ==
--- NOTE | 2021-11-10 11:59 | RAD_ITS ---
STUDY: X-RAY - LUMBAR SPINE REASON FOR EXAM: Male, 86 years old. PAIN TECHNIQUE: XR Spine Lumbar 2 or 3 Views COMPARISON: None FINDINGS: Normal lumbar lordosis. There is no substantial scoliosis. There is a normal alignment of the vertebrae. Vacuum disc phenomenon. There is multilevel endplate spondylosis of the lumbar vertebrae. There is multi-level degenerative disc disease with multi-level disc space narrowing. There are atherosclerotic vascular calcifications. The soft tissue structures are unremarkable. RAD/Lumbar Spine 2 or 3 Views IMPRESSION: Degenerative changes of the spine, as detailed above. Electronically Signed: Petr Smith MD at 18:24 EDT ,
== END | disposition home or self-care (01) ==
LOC: RAD 11:57
PROVIDERS: PCP Family Medicine Geriatric Medicine; Referring Provider Anesthesiology Pain Medicine; Visit Provider Anesthesiology Pain Medicine
DX: M47.816 Spondylosis without myelopathy or radiculopathy, lumbar region (principal); M51.36 Other intervertebral disc degeneration, lumbar region; M48.061 Spinal stenosis, lumbar region without neurogenic claudication
CPT/HCPCS: 72100

== ENCOUNTER 2021-11-13 14:00 | Inpatient (IN) | payer MEDICARE, OTHER, SELFPAY ==
[2021-11-13] VITALS (8 sets, daily range): BP systolic 116–144; BP diastolic 76–91; PULSE 66–111; RESP 16–24; TEMP 36–36.6; O2SAT 95–100; BMI 21.1; BMI 21.2
--- NOTE | 2021-11-13 14:58 | EKG12_ITS ---
Test Reason : GI BLEED Blood Pressure : / mmHG Vent. Rate : 091 BPM Atrial Rate : 104 BPM P-R Int : 000 ms QRS Dur : 128 ms QT Int : 384 ms P-R-T Axes : 000 -47 121 degrees QTc Int : 472 ms Poor data quality, interpretation may be adversely affected Atrial fibrillation with premature ventricular or aberrantly conducted complexes Left axis deviation Left ventricular hypertrophy with QRS widening T wave abnormality, consider lateral ischemia Abnormal ECG Confirmed by ASHTYN TOLEDO, CANDIDA ([id number]), video tape editor OLIVER BARNETT ([id number]) on 11/17/2021 8:55:25 AM Referred By: KORI Confirmed By:CANDIDA CHAMORRO MD
--- NOTE | 2021-11-13 15:00 | EX.ED.DYSGE1 ---
HPI <CAROLYN Vidales - Last Filed: 11/13/21 18:25> History of Present Illness Chief Complaint: GI Bleed Narrative Narrative: 86-year-old male with history of A. fib on Eliquis, hypertension, hyperlipidemia who lives alone presents to the emergency department with multiple episodes of bright red blood. Over the last month, per the son who checks in on him, the patient has decreased appetite, not eating or drinking well, declining. He is currently trying to get into the [facility] for evaluation and placement. Patient denies any pain however he does state to feel tired. Denies any nausea or vomiting or blood in vomit. Patient states the stool is bright red. [facility] <CAROLYN Vidales - Last Filed: 11/13/21 18:25> [facility] Medical History (Updated 11/13/21 @ 19:[address] Perez Friend, DO) Atrioventricular block, complete BPH (benign prostatic hyperplasia) Cardiac dysrhythmia Carotid stenosis, left Diastolic dysfunction Diverticulitis Essential hypertension Hyperlipidemia Nonrheumatic aortic (valve) stenosis with insufficiency Presence of permanent cardiac pacemaker (~07/30/11) Home Medications donepezil 10 mg tablet 10 mg PO QHS 05/12/20 [History Last Taken 11/12/21] finasteride 5 mg tablet 5 mg PO DAILY 05/12/20 [History Last Taken 11/13/21] memantine 10 mg tablet 10 mg PO BID 08/13/21 [History Last Taken 11/13/21] furosemide 40 mg tablet (Lasix) 40 mg PO DAILY #30 tabs 11/04/21 [Rx Last Taken 11/13/21] apixaban 5 mg tablet (Eliquis) 5 mg PO BID BLOOD THINNER 11/13/21 [History Last Taken 11/13/21] aspirin 81 mg chewable tablet 81 mg PO DAILY HEALTH 11/13/21 [History Last Taken 11/13/21] cranberry extract 500 mg tablet 500 mg PO BID SUPPLEMETN 11/13/21 [History Last Taken 11/13/21] levothyroxine 50 mcg tablet 50 mcg PO DAILY THYROID 11/13/21 [History Last Taken 11/13/21] losartan 50 mg tablet 50 mg PO DAILY #30 tabs 11/13/21 [Rx Last Taken 2 Weeks Ago ~10/30/21] metoprolol tartrate 50 mg tablet 50 mg PO BID HEART 11/13/21 [History Last Taken 11/13/21] mirtazapine 7.5 mg tablet 7.5 mg PO DAILY APPITTITE 11/13/21 [History Last Taken Unknown] multivitamin with minerals-folic acid 200 mcg chewable tablet (Multivitamin Gummies) 1 tab PO DAILY SUPPLEMENT 11/13/21 [History Last Taken 11/13/21] saw palmetto 160 mg capsule 160 mg PO DAILY SUPPLEMENT 11/13/21 [History Last Taken 11/13/21] Allergy/AdvReac Type Severity Reaction Status Date / Time No Known Allergies Allergy Verified 11/04/21 09:28 Family History Father CVA (cerebral vascular accident) Mother Diabetes Brother CAD (coronary artery disease) Prostate cancer Brother CAD (coronary artery disease) Surgical History History of cystoscopy History of incisional hernia repair History of laparoscopic cholecystectomy History of splenectomy Social History Smoking Status: Former smoker second hand exposure: No alcohol intake: never substance use type: does not use caffeine: Yes frequency: does not exercise ROS <CAROLYN Vidales - Last Filed: 11/13/21 18:25> ROS ED ROS Narrative Constitutional: Negative for fever, chills. Positive for weakness, generalized weight loss Eyes: Negative for vision loss, vision change, double vision ENT: Negative for any sore throat, ear pain, congestion Cardiovascular: Negative for any chest pain, tightness, palpitations Respiratory: Negative for any cough, sputum production, hemoptysis, dyspnea, dyspnea on exertion, orthopnea Gastrointestinal: Negative for any abdominal pain, nausea, vomiting, diarrhea, constipation, blood in vomit. Positive for blood in stool : Negative for any urinary frequency, dysuria, retention, blood in urine Muscle skeletal: Negative for any muscle joint pain, stiffness, myalgias, arthralgias, neck pain, back pain Neurological: Negative for any headache, syncope, numbness or tingling, dizziness Skin: Negative for any rashes, lumps, itching, abrasions, lacerations Psychiatric: Negative for any depression, anxiety, stress, suicidal ideation, homicidal ideation Hematologic: Negative for any easy bruising, excessive bruising, easy bleeding Allergies: Negative for any eczema, hives, rash EXAM <CAROLYN Vidales - Last Filed: 11/13/21 18:25> Physical Exam Narrative Exam Narrative: Vital signs reviewed. Vital signs are stable, HEET: Head normocephalic atraumatic, TMs clear bilaterally. Posterior pharynx is clear, dry mucous membranes. Nares clear bilaterally. Pale sclera Neck: Supple with no lymphadenopathy or tenderness. No signs of meningismus, negative jolt sign. Cardiac: Irregular rhythm rhythm with positive murmur no gallops or rubs, equal peripheral pulses bilaterally. Respiratory: Crackles of the right lung base. No chest tenderness. Abdomen: Soft, nontender, nondistended. No abdominal bruit or pulsatile masses. No hepatosplenomegaly Extremities: No peripheral edema, no signs of gross trauma or deformity. Active full range of motion of all extremities. Neuro: Cranial nerves II through XII intact, no focal neurological deficits. Skin: Clean dry and intact with no rash, purpura, petechiae, vesicles or pustules. Backs/flank: No CVA tenderness, no midline spinal tenderness, no deformity. Psych: Normal mood and affect. No SI, HI or acute psychosis. Rectal: Rectal exam completed, bright red blood around the anus, negative for any stool in the rectal vault. Dark red stool on digit Const Vital Signs: 11/13/21 14:06 11/13/21 16:00 Temperature 97.8 F Temperature Source Oral Pulse Rate 92 81 Respiratory Rate 20 H 20 H Blood Pressure 116/88 H 135/76 H Blood Pressure Mean 97 95 Pulse Ox 95 95 Oxygen Delivery Method Room Air Room Air Positive cachectic and unkempt General Appearance ED: unkempt and cachectic Nutritional Appearance: cachectic Psych Appearance: unkempt <Dr. Arun Souza, - Last Filed: 11/13/21 22:08> Physical Exam Const Vital Signs: 11/13/21 14:06 11/13/21 16:00 Temperature 97.8 F Temperature Source Oral Pulse Rate 92 81 Respiratory Rate 20 H 20 H Blood Pressure 116/88 H 135/76 H Blood Pressure Mean 97 95 Pulse Ox 95 95 Oxygen Delivery Method Room Air Room Air [facility] <Ramirez GonzalezCAROLYN - Last Filed: 11/13/21 18:25> [facility] Lab Data Attestation: I reviewed the patient's lab results. Labs: Laboratory Results - last 24 hr 11/13/21 11/13/21 11/13/21 15:10 15:10 15:10 WBC 8.9 RBC 4.28 L Hgb 14.5 Hct 43.1 MCV 100.7 H MCH 33.9 H MCHC 33.6 RDW Std Deviation 59.9 H RDW Coeff of Edward 16.2 H Plt Count 220 MPV 11.5 Immature Gran % (Auto) 0.600 Neut % (Auto) 78.8 H Lymph % (Auto) 9.8 L [place] % (Auto) 10.1 H Eos % (Auto) 0.2 Baso % (Auto) 0.5 Absolute Neuts (auto) 7.0 Absolute Lymphs (auto) 0.87 Nucleated RBC % 0 PT INR Sodium 142 Potassium 3.6 Chloride 101 Carbon Dioxide 33.0 H Anion Gap 8 BUN 35 H Creatinine 1.76 H Estim Creat Clear Calc 28.47 Est GFR (MDRD) Af Amer 47 L Est GFR (MDRD) Non-Af 39 L BUN/Creatinine Ratio 19.9 Glucose 176 H Lactic Acid Cancelled Calcium 9.4 B-Natriuretic Peptide Urine Color Urine Clarity Urine pH Ur Specific [place] Urine Protein Urine Glucose (UA) Urine Ketones Urine Occult Blood Urine Nitrite Urine Bilirubin Urine Urobilinogen Ur Leukocyte Esterase Urine RBC Urine WBC Ur Squamous Epith Cells Urine Bacteria Urine Mucus Blood Type Antibody Screen 11/13/21 11/13/21 11/13/21 15:10 15:10 15:10 WBC RBC Hgb Hct MCV MCH MCHC RDW Std Deviation RDW Coeff of Edward Plt Count MPV Immature Gran % (Auto) Neut % (Auto) Lymph % (Auto) [place] % (Auto) Eos % (Auto) Baso % (Auto) Absolute Neuts (auto) Absolute Lymphs (auto) Nucleated RBC % PT 24.1 H INR 2.2 Sodium Potassium Chloride Carbon Dioxide Anion Gap BUN Creatinine Estim Creat Clear Calc Est GFR (MDRD) Af Amer Est GFR (MDRD) Non-Af BUN/Creatinine Ratio Glucose Lactic Acid Calcium B-Natriuretic Peptide 2704.7 H Urine Color Urine Clarity Urine pH Ur Specific [place] Urine Protein Urine Glucose (UA) Urine Ketones Urine Occult Blood Urine Nitrite Urine Bilirubin Urine Urobilinogen Ur Leukocyte Esterase Urine RBC Urine WBC Ur Squamous Epith Cells Urine Bacteria Urine Mucus Blood Type O POSITIVE Antibody Screen NEGATIVE 11/13/21 11/13/21 15:15 18:10 WBC RBC Hgb Hct MCV MCH MCHC RDW Std Deviation RDW Coeff of Edward Plt Count MPV Immature Gran % (Auto) Neut % (Auto) Lymph % (Auto) [place] % (Auto) Eos % (Auto) Baso % (Auto) Absolute Neuts (auto) Absolute Lymphs (auto) Nucleated RBC % PT INR Sodium Potassium Chloride Carbon Dioxide Anion Gap BUN Creatinine Estim Creat Clear Calc Est GFR (MDRD) Af Amer Est GFR (MDRD) Non-Af BUN/Creatinine Ratio Glucose Lactic Acid Cancelled Calcium B-Natriuretic Peptide Urine Color Yellow Urine Clarity Clear Urine pH 6.0 Ur Specific [place] 1.010 Urine Protein 30 H Urine Glucose (UA) Normal Urine Ketones Negative Urine Occult Blood 250 H Urine Nitrite Negative Urine Bilirubin Negative Urine Urobilinogen 1 H Ur Leukocyte Esterase 25 H Urine RBC 0-5 SEEN Urine WBC 0 SEEN Ur Squamous Epith Cells 0 SEEN Urine Bacteria 0 SEEN Urine Mucus 0 SEEN Blood Type Antibody Screen Radiography Diagnostic Testing: Clinical Impression(s) from Imaging Studies Chest X-Ray 11/13/21 15:19 IMPRESSION: There are no acute findings. Electronically Signed: Petr Smith MD at 15:36 EDT , Abdomen/Pelvis CT 11/13/21 16:01 IMPRESSION: (NOT LISTED IN ORDER OF SIGNIFICANCE) Acute sigmoid diverticulitis. There are atherosclerotic calcifications of visualized coronary arteries. Other findings as above. Electronically Signed: Petr Smith MD at 17:46 EDT , EKG Atrial fibrillation: Attestation: I personally reviewed and interpreted this EKG as follows: Interpretation: Atrial Fibrillation Comments: Atrial fibrillation with premature ventricular complexes, rate [address] elevation, no acute infarct noted Treatment and Re-Evaluation Narrative: Patient is in no distress, patient presents to the emergency department with 6 episodes of bright red blood, dark blood from his rectum this morning. Patient did receive a full work-up.Patient's laboratory studies show a CBC with a hemoglobin of 14.5, patient's INR was 2.2, patient's chemistries showed worsening kidney failure with a creatinine of 1.76, increase in the BUN at 35 with a elevated BNP of 2704. This is elevated from 11/04/2021. Patient was positive for stool occult blood. Patient's physical examination of his abdomen was unremarkable however looking back to his past records, I found that he suffered from diverticulitis in 2019. I then performed a CT scan with no contrast secondary to the renal dysfunction. Patient CT scan showed acute sigmoid diverticulitis, patient was then started on IV Flagyl, IV ciprofloxacin. Patient's EKG remained stable showing atrial fibrillation. The patient will be admitted to the hospital by the hospitalist. Patient is stable for admission <Dr. Arun Souza, DO - Last Filed: 11/13/21 22:08> [facility] Narrative Medical decision making narrative: I have personally performed a face to face assessment of the patient and have reviewed the DARIUS Note. I performed a substantive portion of the visit including all aspects of the following. My magana findings include: History: Patient is an 86-year-old male who presents with rectal bleeding that has gotten worse over the past couple days. Patient states it is worse today. Patient admits to some mild abdominal pain. Patient denies any nausea or vomiting. Patient is on Eliquis. Patient was recently started on this because of atrial fibrillation. Patient denies any dysuria or hematuria. Exam: Vital signs are stable. Patient is afebrile. Patient is in no acute distress. Oral mucosa is pink and moist. Neck is supple. Trachea is midline. There is no JVD. Heart was regular rate and rhythm. Lungs are clear and equal bilaterally. Abdomen is soft. Bowel sounds are normal. There are some mild lower abdominal tenderness. There is no rebound or guarding noted. There are no masses palpated. Cranial nerves II through XII are intact. There are no focal motor or sensory deficits. Medical Decision Making: CBC shows normal hemoglobin and hematocrit at 14.5 and 43.1. Platelets were normal. White blood cell count was normal. Basic metabolic profile showed a slightly elevated glucose of 176. BUN was 35 and creatinine was 1.76. These were slightly increased from previous results. Pro time with INR was therapeutic at 2.2. BNP was slightly elevated at 2704.7. Urinalysis does not show any evidence of urinary tract infection. CT scan of the abdomen pelvis was obtained. There is sigmoid diverticulitis. This was interpreted by the radiologist and reviewed by myself. Portable 1 view chest x-ray was obtained. On my interpretation, lung boyd are clear. There is normal cardiac silhouette. Bony thorax is normal. There is no acute process noted. Radiologist also interpreted the x-ray and agrees. Case was discussed with Dr. Diane. He is agreeable to have the patient admitted here to the hospitalist service. He will follow along with the patient. Case was discussed with the hospitalist. They will admit the patient to the hospital. Patient was started on Cipro and Flagyl. Patient and family understood and were agreeable with the plan. All questions were answered. Lab Data Labs: Laboratory Results - last 24 hr 11/13/21 11/13/21 11/13/21 15:10 15:10 15:10 WBC 8.9 RBC 4.28 L Hgb 14.5 Hct 43.1 MCV 100.7 H MCH 33.9 H MCHC 33.6 RDW Std Deviation 59.9 H RDW Coeff of Edward 16.2 H Plt Count 220 MPV 11.5 Immature Gran % (Auto) 0.600 Neut % (Auto) 78.8 H Lymph % (Auto) 9.8 L [place] % (Auto) 10.1 H Eos % (Auto) 0.2 Baso % (Auto) 0.5 Absolute Neuts (auto) 7.0 Absolute Lymphs (auto) 0.87 Nucleated RBC % 0 PT INR Sodium 142 Potassium 3.6 Chloride 101 Carbon Dioxide 33.0 H Anion Gap 8 BUN 35 H Creatinine 1.76 H Estim Creat Clear Calc 28.47 Est GFR (MDRD) Af Amer 47 L Est GFR (MDRD) Non-Af 39 L BUN/Creatinine Ratio 19.9 Glucose 176 H Lactic Acid Cancelled Calcium 9.4 B-Natriuretic Peptide Urine Color Urine Clarity Urine pH Ur Specific [place] Urine Protein Urine Glucose (UA) Urine Ketones Urine Occult Blood Urine Nitrite Urine Bilirubin Urine Urobilinogen Ur Leukocyte Esterase Urine RBC Urine WBC Ur Squamous Epith Cells Urine Bacteria Urine Mucus Blood Type Antibody Screen 11/13/21 11/13/21 11/13/21 15:10 15:10 15:10 WBC RBC Hgb Hct MCV MCH MCHC RDW Std Deviation RDW Coeff of Edward Plt Count MPV Immature Gran % (Auto) Neut % (Auto) Lymph % (Auto) [place] % (Auto) Eos % (Auto) Baso % (Auto) Absolute Neuts (auto) Absolute Lymphs (auto) Nucleated RBC % PT 24.1 H INR 2.2 Sodium Potassium Chloride Carbon Dioxide Anion Gap BUN Creatinine Estim Creat Clear Calc Est GFR (MDRD) Af Amer Est GFR (MDRD) Non-Af BUN/Creatinine Ratio Glucose Lactic Acid Calcium B-Natriuretic Peptide 2704.7 H Urine Color Urine Clarity Urine pH Ur Specific [place] Urine Protein Urine Glucose (UA) Urine Ketones Urine Occult Blood Urine Nitrite Urine Bilirubin Urine Urobilinogen Ur Leukocyte Esterase Urine RBC Urine WBC Ur Squamous Epith Cells Urine Bacteria Urine Mucus Blood Type O POSITIVE Antibody Screen NEGATIVE 11/13/21 11/13/21 15:15 18:10 WBC RBC Hgb Hct MCV MCH MCHC RDW Std Deviation RDW Coeff of Edward Plt Count MPV Immature Gran % (Auto) Neut % (Auto) Lymph % (Auto) [place] % (Auto) Eos % (Auto) Baso % (Auto) Absolute Neuts (auto) Absolute Lymphs (auto) Nucleated RBC % PT INR Sodium Potassium Chloride Carbon Dioxide Anion Gap BUN Creatinine Estim Creat Clear Calc Est GFR (MDRD) Af Amer Est GFR (MDRD) Non-Af BUN/Creatinine Ratio Glucose Lactic Acid Cancelled Calcium B-Natriuretic Peptide Urine Color Yellow Urine Clarity Clear Urine pH 6.0 Ur Specific [place] 1.010 Urine Protein 30 H Urine Glucose (UA) Normal Urine Ketones Negative Urine Occult Blood 250 H Urine Nitrite Negative Urine Bilirubin Negative Urine Urobilinogen 1 H Ur Leukocyte Esterase 25 H Urine RBC 0-5 SEEN Urine WBC 0 SEEN Ur Squamous Epith Cells 0 SEEN Urine Bacteria 0 SEEN Urine Mucus 0 SEEN Blood Type Antibody Screen Radiography Diagnostic Testing: Clinical Impression(s) from Imaging Studies Chest X-Ray 11/13/21 15:19 IMPRESSION: There are no acute findings. Electronically Signed: Petr Smith MD at 15:36 EDT , Abdomen/Pelvis CT 11/13/21 16:01 IMPRESSION: (NOT LISTED IN ORDER OF SIGNIFICANCE) Acute sigmoid diverticulitis. There are atherosclerotic calcifications of visualized coronary arteries. Other findings as above. Electronically Signed: Petr Smith MD at 17:46 EDT , Discharge Plan Dx/Rx/DC Orders Clinical Impression: Acute diverticulitis of intestine, Acute kidney injury, Rectal bleed, Adult failure to thrive Disposition Disposition: Acute Care Hospital [facility] Discharge Date/Time: 11/13/21 19:11
--- NOTE | 2021-11-13 15:19 | RAD_ITS ---
STUDY: X-RAY CHEST REASON FOR EXAM: Male, 86 years old. cough Technologist Notes COUGH. TRIAGE STATES BRIGHT RED BLEEDING FROM RECTUM, POOR APPETITE X SEVERAL DAYS. TECHNIQUE: XR Chest 1 View COMPARISON: 6 FINDINGS: There is no demonstrated pleural abnormality. There is a left sided pacemaker batterypack. Elevated right humeral head with eburnation of the acromion suggest a chronic rotator cuff tear. Normal size heart. Normal mediastinum and magen. Normal visualized pulmonary arteries. There is atherosclerotic calcification of the aortic arch with tortuosity. There are diffuse degenerative changes of the visualized thoracic spine. There is degenerative osteoarthritis of the bilateral shoulders. There is no demonstrated abnormality of the visualized soft tissue structures of the upper abdomen. RAD/Chest 1 View (Portable) IMPRESSION: There are no acute findings. Electronically Signed: Petr Smith MD at 15:36 EDT ,
[2021-11-13 15:21] LABS: Bacteria 0 SEEN /hpf (None Seen); Mucous, Urine 0 SEEN /hpf (<or=2+); Squamous Epithelial Cells - UA 0 SEEN /hpf (0-5); White Blood Cells 0 SEEN /hpf (0-5)
[2021-11-13 15:23] LABS: Absolute Lymphocyte Count 0.87 X10^3/uL (0.83-4.51); Basophil# 0.04 X10^3/uL; Basophil% 0.5 % (0-1); Eosinophil# 0.02 X10^3/uL; Eosinophils% 0.2 % (0-5); Hematocrit 43.1 % (40-54); Hemoglobin 14.5 g/dL (13.0-16.5); Lymphocyte # 0.87 X10^3/ul (0.83-4.51); Lymphocyte % 9.8 % (19-41); Mean Corp Hgb Conc 33.6 g/dL (32-36); Mean Corpuscular Hgb 33.9 pg (27.0-32.0); Mean Corpuscular Volume 100.7 fL (80-94); Mean Platelet Vol. 11.5 fl (6.2-12.0); Monocyte% 10.1 % (0-10); NRBC Flagged by Analyzer 0 % (0-5); Neutrophil % 78.8 % (47-70); Platelet Count 220 K/mm3 (150-450); RBC Distribution Width CV 16.2 % (11.6-14.6); RBC Distribution Width SD 59.9 fl (35.1-43.9); Red Blood Count 4.28 M/mm3 (4.6-6.2); White Blood Count 8.9 K/mm3 (4.4-11.0)
[2021-11-13 15:23] LABS: Color, Urine Yellow (Yellow); Glucose, Dipstick Normal (Normal); Ketone-Dipstick Negative (Negative); Leukocyte Esterase-Dipstick 25 /ul (Negative); Nitrite-Dipstick Negative (Negative); Occult Blood-Urine 250 /ul (Negative); Protein-Dipstick 30 mg/dl (Negative); Urine Bilirubin Dipstick Negative (Negative); Urine Clarity Clear (Clear); Urine Urobilinogen 1 mg/dl (Normal)
[2021-11-13 15:29] LABS: Red Blood Cells-Urine 0-5 SEEN /hpf (0-5)
[2021-11-13 15:33] LABS: International Normalized Ratio 2.2; Prothrombin Time (Protime)PT. 24.1 SECONDS (11.7-14.9)
[2021-11-13 15:50] LABS: Anion Gap 8 (5-15); BUN 35 mg/dL (7-18); BUN/Creat Ratio 19.9 RATIO (10-20); Calcium,Total 9.4 mg/dL (8.5-10.1); Chloride 101 mmol/L (98-107); Creatinine, Serum 1.76 mg/dL (0.70-1.30); EST Glomerular Filtration Rate 39 mL/min (>60); Est Glom Filt Rate - Afr Amer 47 mL/min (>60); Estimated Creatinine Clearance 28.47 ml/min; Glucose 176 mg/dL (74-106); Potassium 3.6 mmol/L (3.5-5.1); Sodium Level 142 mmol/L (136-145)
--- NOTE | 2021-11-13 16:01 | CT_ITS ---
STUDY: CT Abdomen And Pelvis W/O Contrast Injection 11/13/2021 5:40 PM REASON FOR EXAM: Male, 86 years old. ABDOMINAL PAIN Pain -- Rectal bleed TECHNIQUE: Transaxial images were obtained without oral contrast, and without intravenous contrast. Individualized dose optimization techniques were used for this CT. COMPARISON: 06.29.18. FINDINGS: There are atherosclerotic calcifications of visualized coronary arteries. The visualized portions of the heart are within normal limits. Enlarged heart. Unremarkable liver. Unremarkable gallbladder and extrahepatic biliary system. Surgically absent spleen. Unremarkable pancreas. Unremarkable bilateral adrenal glands. Stable cystic lesion of the right kidney measuring 11.6 cm. This contains peripheral calcifications. Non obstructive 2 mm left renal parenchymal stones. Stable hypodensity of the superior left kidney. Non obstructive 2 mm right renal parenchymal stones. Unremarkable visualized stomach. Unremarkable small intestine. There is diverticulosis, with thickening of the colon wall, and pericolonic inflammation changes consistent with acute diverticulitis. The appendix is visualized and appears unremarkable. There are calcifications of the abdominal aorta. This is consistent for atherosclerotic disease. There is no abdominal aortic aneurysm. Unremarkable inferior vena cava. Subcentimeter mesenteric lymph nodes. Unremarkable urinary bladder. There are prostatic seed implants. There are multiple sclerotic densities in the osseous structures. These may represent multiple bone islands. However, other etiologies such as metastatic disease cannot be excluded. Unremarkable abdominal wall. There are diffuse degenerative changes of the visualized lumbar spine. There is bilateral neural foraminal stenosis at L4-5 and L5-S1. CT/Abdomen/Pelvis without Cont IMPRESSION: (NOT LISTED IN ORDER OF SIGNIFICANCE) Acute sigmoid diverticulitis. There are atherosclerotic calcifications of visualized coronary arteries. Other findings as above. Electronically Signed: Petr Smith MD at 17:46 EDT ,
[2021-11-13 16:49] LABS: BNP,B-Type NATRIURETIC PEPTIDE 2704.7 pg/mL (0-100)
--- NOTE | 2021-11-13 17:27 | NURSING ---
[id number] [place] [address] GALEANO
[2021-11-13] MEDS: Ciprofloxacin 400 MG/200 ML BAG 200 MG IV (18:15)
--- NOTE | 2021-11-13 18:21 | PCM.HP.STD ---
HPI - General General Date of Admission: 11/13/21 HPI Narrative ERMA CARLSON, is a 86 M who presents to the hospital with multiple bloody bowel movements. He denies any significant abdominal pain and denies any lightheadedness or dizziness. According to him he has been having intermittent bloody bowel movements for the last several weeks that has had several today. He is a little bit of a poor historian secondary to some dementia. His son is working on getting him in to either an assisted living or assisted facility however during my exam no family is present so history is limited. In the ER he is found to have a hemoglobin of 14.5 which is higher than what it was 2 weeks ago, blood pressure is little and he is not tachycardic. He does have an elevated BNP at over 2700 and this can be related to the JOSE he has with a creatinine of 1.76 which is up from his baseline of around 1. He does not have any findings on his chest x-ray to indicate a heart failure exacerbation he is currently on room air. CT of his abdomen pelvis indicates diverticulitis in the sigmoid colon. [facility] Medical History (Updated 11/13/21 @ 19:[address] Perez Friend, DO) Atrioventricular block, complete BPH (benign prostatic hyperplasia) Cardiac dysrhythmia Carotid stenosis, left Diastolic dysfunction Diverticulitis Essential hypertension Hyperlipidemia Nonrheumatic aortic (valve) stenosis with insufficiency Presence of permanent cardiac pacemaker (~07/30/11) Home Medications donepezil 10 mg tablet 10 mg PO QHS 05/12/20 [History Last Taken 11/12/21] finasteride 5 mg tablet 5 mg PO DAILY 05/12/20 [History Last Taken 11/13/21] memantine 10 mg tablet 10 mg PO BID 08/13/21 [History Last Taken 11/13/21] furosemide 40 mg tablet (Lasix) 40 mg PO DAILY #30 tabs 11/04/21 [Rx Last Taken 11/13/21] apixaban 5 mg tablet (Eliquis) 5 mg PO BID BLOOD THINNER 11/13/21 [History Last Taken 11/13/21] aspirin 81 mg chewable tablet 81 mg PO DAILY HEALTH 11/13/21 [History Last Taken 11/13/21] cranberry extract 500 mg tablet 500 mg PO BID SUPPLEMETN 11/13/21 [History Last Taken 11/13/21] levothyroxine 50 mcg tablet 50 mcg PO DAILY THYROID 11/13/21 [History Last Taken 11/13/21] losartan 50 mg tablet 50 mg PO DAILY #30 tabs 11/13/21 [Rx Last Taken 2 Weeks Ago ~10/30/21] metoprolol tartrate 50 mg tablet 50 mg PO BID HEART 11/13/21 [History Last Taken 11/13/21] mirtazapine 7.5 mg tablet 7.5 mg PO DAILY APPITTITE 11/13/21 [History Last Taken Unknown] multivitamin with minerals-folic acid 200 mcg chewable tablet (Multivitamin Gummies) 1 tab PO DAILY SUPPLEMENT 11/13/21 [History Last Taken 11/13/21] saw palmetto 160 mg capsule 160 mg PO DAILY SUPPLEMENT 11/13/21 [History Last Taken 11/13/21] Allergy/AdvReac Type Severity Reaction Status Date / Time No Known Allergies Allergy Verified 11/04/21 09:28 Family History Father CVA (cerebral vascular accident) Mother Diabetes Brother CAD (coronary artery disease) Prostate cancer Brother CAD (coronary artery disease) Surgical History History of cystoscopy History of incisional hernia repair History of laparoscopic cholecystectomy History of splenectomy Social History Smoking Status: Former smoker second hand exposure: No alcohol intake: never substance use type: does not use caffeine: Yes frequency: does not exercise ROS Constitutional Constitutional: Denies chills, fatigue, fever(s) or malaise Eyes Eyes: Denies blurry vision ENT HEENT: Denies headache(s) or nasal discharge Cardiovascular Cardiovascular: Denies chest pain, dyspnea on exertion or syncope Respiratory/Chest Respiratory/Chest: Denies cough, shortness of breath at rest or shortness of breath with exertion Gastrointestinal Gastrointestinal: Reports melena; Denies abdominal pain, coffee ground emesis, constipation, diarrhea, nausea or vomiting Genitourinary Genitourinary: Denies dysuria Neurologic Neurologic: Denies focal weakness, numbness or tremor(s) Psychiatric Psychiatric: Denies anxiety or depression Vital Signs Vital Signs Vital Signs: 11/13/21 14:06 11/13/21 16:00 11/13/21 18:19 Temperature 97.8 F Temperature Source Oral Pulse Rate 92 81 84 Respiratory Rate 20 H 20 H 16 Blood Pressure 116/88 H 135/76 H 144/81 H Blood Pressure Mean 97 95 102 Pulse Ox 95 95 100 Oxygen Delivery Method Room Air Room Air Room Air Weight Weight: 147 lb 4.301 oz Body Mass Index (BMI) 21.1 Physical Exam Const alert, oriented x3 and no apparent distress General Appearance: cooperative HEENT normocephalic and moist oral mucous membranes Eyes PERRL, EOMs intact bilaterally and conjunctivae normal Neck supple and no JVD Resp normal respiratory effort, no retractions, no use of accessory muscles and clear to auscultation bilaterally Auscultation: Negative for crackles, rales, rhonchi or wheezes Cardio regular rate, S1 normal heart sound, S2 normal heart sound and no murmurs Cardio Narrative: Irregular rhythm GI soft to palpation, non-tender and non-distended; Negative for hepatosplenomegaly Extremity no clubbing, cyanosis or edema Skin no rashes or lesions noted Neuro no focal motor deficits and no sensory deficits noted Psych affect normal Appearance: appropriate Results Lab / Micro Data Result Diagrams: 11/14/21 06:30 11/14/21 06:30 Labs: Laboratory Results - last 24 hr 11/13/21 15:10: WBC 8.9, RBC 4.28 L, Hgb 14.5, Hct 43.1, MCV 100.7 H, MCH 33.9 H, MCHC 33.6, RDW Std Deviation 59.9 H, RDW Coeff of Edward 16.2 H, Plt Count 220, MPV 11.5, Immature Gran % (Auto) 0.600, Neut % (Auto) 78.8 H, Lymph % (Auto) 9.8 L, [place] % (Auto) 10.1 H, Eos % (Auto) 0.2, Baso % (Auto) 0.5, Absolute Neuts (auto) 7.0, Absolute Lymphs (auto) 0.87, Nucleated RBC % 0 11/13/21 15:10: Sodium 142, Potassium 3.6, Chloride 101, Carbon Dioxide 33.0 H, Anion Gap 8, BUN 35 H, Creatinine 1.76 H, Estim Creat Clear Calc 28.47, Est GFR (MDRD) Af Amer 47 L, Est GFR (MDRD) Non-Af 39 L, BUN/Creatinine Ratio 19.9, Glucose 176 H, Calcium 9.4 11/13/21 15:10: Lactic Acid Cancelled 11/13/21 15:10: B-Natriuretic Peptide 2704.7 H 11/13/21 15:10: PT 24.1 H, INR 2.2 11/13/21 15:10: Blood Type O POSITIVE, Antibody Screen NEGATIVE 11/13/21 15:15: Urine Color Yellow, Urine Clarity Clear, Urine pH 6.0, Ur Specific [place] 1.010, Urine Protein 30 H, Urine Glucose (UA) Normal, Urine Ketones Negative, Urine Occult Blood 250 H, Urine Nitrite Negative, Urine Bilirubin Negative, Urine Urobilinogen 1 H, Ur Leukocyte Esterase 25 H, Urine RBC 0-5 SEEN, Urine WBC 0 SEEN, Ur Squamous Epith Cells 0 SEEN, Urine Bacteria 0 SEEN, Urine Mucus 0 SEEN Micro: Microbiology 11/13/21 Unknown Stool Stool Occult Blood (AMMY) - Final Occult Blood Positive Radiology Impression Chest X-Ray 11/13/21 15:19 IMPRESSION: There are no acute findings. Electronically Signed: Petr mSith MD at 15:36 EDT , Abdomen/Pelvis CT 11/13/21 16:01 IMPRESSION: (NOT LISTED IN ORDER OF SIGNIFICANCE) Acute sigmoid diverticulitis. There are atherosclerotic calcifications of visualized coronary arteries. Other findings as above. Electronically Signed: Petr Smith MD at 17:46 EDT , Assessment & Plan Assessment/Plan (1) Sigmoid diverticulitis: (2) JOSE (acute kidney injury): (3) Ischemic colitis: PLAN: Plan 1. Acute sigmoid diverticulitis with associated GI bleed from ischemic colitis and an JOSE ? We will hold his Eliquis ? Continue with antibiotics ? Place him on clear liquid diet ? We will hold IV fluids as well as his Lasix secondary to his JOSE and also the fact that his BNP is significantly elevated ? We will repeat a hemoglobin at 10 PM. ? PT/OT for evaluation and possible placement 2. HTN/new onset A. fib ? Blood pressure is stable ? We will hold start and his Lasix secondary to his JOSE ? Continue with his metoprolol 3. Dementia ? Can continue with his home medications 4. Hypothyroidism ? Stable ? Continue with Synthroid DVT: SCDs Charges/Coding Visit Charges Inpatient E&M: 92146 Init Hosp L2
[2021-11-13] MEDS: metroNIDAZOLE 500 MG/100 ML BAG 100 MG IV ×2 (19:42→21:56)
--- NOTE | 2021-11-13 19:48 | CON.PCM_ITS ---
Assessment & Plan Assessment/Plan (1) Acute diverticulitis of intestine: PLAN: Acute diverticulitis in the sigmoid colon hopefully just secondary to constipation and not secondary to neoplasia. Agree with antibiotic therapy. He will need a follow-up colonoscopy in approximately 4 to 6 weeks after healing to rule out neoplasia. (2) Ischemic colitis: PLAN: Lower GI bleeding secondary to ischemic colitis as acute diverticulitis and not associated with GI bleeding. He does have thickening in the colon which is likely secondary to acute diverticulitis in the setting of someone on anticoagulation and is a vasculopath with history of CAD and PAD. Continue to follow his H&H. If it does continue to drop then he may need an endoscopic evaluation. HPI Consult Data Date of Consult: 11/13/21 HPI Narrative Reason for Consultation: GI bleeding HPI Narrative: ERMA CARLSON, is a 86 M who presents with a lower GI bleed. He has a history of A. fib on Eliquis, hypertension, hyperlipidemia who lives alone presents to the emergency department with multiple episodes of bright red blood.? Over the last month, per the son who checks in on him, the patient has decreased appetite, not eating or drinking well, declining.? He is currently trying to get into the [facility] for evaluation and placement.? Patient denies any pain however he does state to feel tired.? Denies any nausea or vomiting or blood in vomit.? Patient states the stool is bright red. He has a history of underlying valvular heart disease with aortic valve stenosis, conduction system disease status post permanent pacemaker placement, superimposed on hyperlipidemia and hypertension. He had a CT scan abdomen pelvis that showed acute sigmoid diverticulitis. [facility] Medical History (Updated 11/13/21 @ 19:[address] Perez Friend, DO) Atrioventricular block, complete BPH (benign prostatic hyperplasia) Cardiac dysrhythmia Carotid stenosis, left Diastolic dysfunction Diverticulitis Essential hypertension Hyperlipidemia Nonrheumatic aortic (valve) stenosis with insufficiency Presence of permanent cardiac pacemaker (~07/30/11) Home Medications donepezil 10 mg tablet 10 mg PO QHS 05/12/20 [History Last Taken 11/12/21] finasteride 5 mg tablet 5 mg PO DAILY 05/12/20 [History Last Taken 11/13/21] memantine 10 mg tablet 10 mg PO BID 08/13/21 [History Last Taken 11/13/21] furosemide 40 mg tablet (Lasix) 40 mg PO DAILY #30 tabs 11/04/21 [Rx Last Taken 11/13/21] apixaban 5 mg tablet (Eliquis) 5 mg PO BID BLOOD THINNER 11/13/21 [History Last Taken 11/13/21] aspirin 81 mg chewable tablet 81 mg PO DAILY HEALTH 11/13/21 [History Last Taken 11/13/21] cranberry extract 500 mg tablet 500 mg PO BID SUPPLEMETN 11/13/21 [History Last Taken 11/13/21] levothyroxine 50 mcg tablet 50 mcg PO DAILY THYROID 11/13/21 [History Last Taken 11/13/21] losartan 50 mg tablet 50 mg PO DAILY #30 tabs 11/13/21 [Rx Last Taken 2 Weeks Ago ~10/30/21] metoprolol tartrate 50 mg tablet 50 mg PO BID HEART 11/13/21 [History Last Taken 11/13/21] mirtazapine 7.5 mg tablet 7.5 mg PO DAILY APPITTITE 11/13/21 [History Last Taken Unknown] multivitamin with minerals-folic acid 200 mcg chewable tablet (Multivitamin Gummies) 1 tab PO DAILY SUPPLEMENT 11/13/21 [History Last Taken 11/13/21] saw palmetto 160 mg capsule 160 mg PO DAILY SUPPLEMENT 11/13/21 [History Last Taken 11/13/21] Allergy/AdvReac Type Severity Reaction Status Date / Time No Known Allergies Allergy Verified 11/04/21 09:28 Family History Father CVA (cerebral vascular accident) Mother Diabetes Brother CAD (coronary artery disease) Prostate cancer Brother CAD (coronary artery disease) Surgical History History of cystoscopy History of incisional hernia repair History of laparoscopic cholecystectomy History of splenectomy Social History Smoking Status: Former smoker second hand exposure: No alcohol intake: never substance use type: does not use caffeine: Yes frequency: does not exercise ROS Constitutional Constitutional: Denies chills, fatigue, fever(s) or malaise Eyes Eyes: Denies blurry vision ENT HEENT: Denies headache(s) or nasal discharge Cardiovascular Cardiovascular: Denies chest pain, dyspnea on exertion or syncope Respiratory/Chest Respiratory/Chest: Denies cough, shortness of breath at rest or shortness of breath with exertion Gastrointestinal Gastrointestinal: Reports melena; Denies abdominal pain, coffee ground emesis, constipation, diarrhea, nausea or vomiting Genitourinary Genitourinary: Denies dysuria Neurologic Neurologic: Denies focal weakness, numbness or tremor(s) Psychiatric Psychiatric: Denies anxiety or depression Physical Exam Const alert, oriented x3 and no apparent distress General Appearance: cooperative HEENT normocephalic and moist oral mucous membranes Eyes PERRL, EOMs intact bilaterally and conjunctivae normal Neck supple and no JVD Resp normal respiratory effort, no retractions, no use of accessory muscles and clear to auscultation bilaterally Auscultation: Negative for crackles, rales, rhonchi or wheezes Cardio regular rate, S1 normal heart sound, S2 normal heart sound and no murmurs Cardio Narrative: Irregular rhythm GI soft to palpation, non-tender and non-distended; Negative for hepatosplenomegaly Extremity no clubbing, cyanosis or edema Skin no rashes or lesions noted Neuro no focal motor deficits and no sensory deficits noted Psych affect normal Appearance: appropriate Lab / Micro Data Result Diagrams: 11/13/21 15:10 11/13/21 15:10 Labs: Laboratory Results - last 24 hr 11/13/21 15:10: WBC 8.9, RBC 4.28 L, Hgb 14.5, Hct 43.1, MCV 100.7 H, MCH 33.9 H , MCHC 33.6, RDW Std Deviation 59.9 H, RDW Coeff of Edward 16.2 H, Plt Count 220, MPV 11.5, Immature Gran % (Auto) 0.600, Neut % (Auto) 78.8 H, Lymph % (Auto) 9.8 L, [place] % (Auto) 10.1 H, Eos % (Auto) 0.2, Baso % (Auto) 0.5, Absolute Neuts (auto) 7.0, Absolute Lymphs (auto) 0.87, Nucleated RBC % 0 11/13/21 15:10: Sodium 142, Potassium 3.6, Chloride 101, Carbon Dioxide 33.0 H, Anion Gap 8, BUN 35 H, Creatinine 1.76 H, Estim Creat Clear Calc 28.47, Est GFR (MDRD) Af Amer 47 L, Est GFR (MDRD) Non-Af 39 L, BUN/Creatinine Ratio 19.9, Glucose 176 H, Calcium 9.4 11/13/21 15:10: Lactic Acid Cancelled 11/13/21 15:10: B-Natriuretic Peptide 2704.7 H 11/13/21 15:10: PT 24.1 H, INR 2.2 11/13/21 15:10: Blood Type O POSITIVE, Antibody Screen NEGATIVE 11/13/21 15:15: Urine Color Yellow, Urine Clarity Clear, Urine pH 6.0, Ur Specific [place] 1.010, Urine Protein 30 H, Urine Glucose (UA) Normal, Urine Ketones Negative, Urine Occult Blood 250 H, Urine Nitrite Negative, Urine Bilirubin Negative, Urine Urobilinogen 1 H, Ur Leukocyte Esterase 25 H, Urine RBC 0-5 SEEN, Urine WBC 0 SEEN, Ur Squamous Epith Cells 0 SEEN, Urine Bacteria 0 SEEN, Urine Mucus 0 SEEN 11/13/21 18:10: Lactic Acid Cancelled Micro: Microbiology 11/13/21 Unknown Stool Stool Occult Blood (AMMY) - Final Occult Blood Positive Radiology Impression Chest X-Ray 11/13/21 15:19 IMPRESSION: There are no acute findings. Electronically Signed: Petr Smith MD at 15:36 EDT , Abdomen/Pelvis CT 11/13/21 16:01 IMPRESSION: (NOT LISTED IN ORDER OF SIGNIFICANCE) Acute sigmoid diverticulitis. There are atherosclerotic calcifications of visualized coronary arteries. Other findings as above. Electronically Signed: Petr Smith MD at 17:46 EDT , Charges/Coding Visit Charges Inpatient E&M: 81814 Init Hosp L2
[2021-11-13 21:55] LABS: Hematocrit 40.1 % (40-54); Hemoglobin 13.8 g/dL (13.0-16.5)
[2021-11-13] MEDS: Donepezil HCl 10 MG Tablet PO (21:57)
[2021-11-13] MEDS: Metoprolol Tartrate 50 MG Tablet PO (21:57)
[2021-11-13] MEDS: 0.9% Saline Lock 10 ML Syringe IV (21:57)
[2021-11-13] MEDS: Memantine Hydrochloride 10 MG Tablet PO (21:58)
[2021-11-13] MEDS: Ensure Clear 120 ML Liquid PO (22:03)
[2021-11-14] VITALS (10 sets, daily range): BP systolic 105–116; BP diastolic 63–89; PULSE 65–113; RESP 16–20; TEMP 36.1–37.2; O2SAT 94–96
[2021-11-14] MEDS: metroNIDAZOLE 500 MG/100 ML BAG 100 MG IV ×3 (05:12→21:14)
[2021-11-14] MEDS: Levothyroxine 50 MCG Tablet PO (05:12)
[2021-11-14 06:44] LABS: Absolute Lymphocyte Count 0.72 X10^3/uL (0.83-4.51); Absolute Neutrophil Count 6.4 X10^3/uL (2.0-7.7); Basophil# 0.04 X10^3/uL; Basophil% 0.5 % (0-1); Eosinophil# 0.02 X10^3/uL; Eosinophils% 0.3 % (0-5); Hematocrit 42.7 % (40-54); Hemoglobin 13.5 g/dL (13.0-16.5); Lymphocyte # 0.72 X10^3/ul (0.83-4.51); Lymphocyte % 9.1 % (19-41); Mean Corp Hgb Conc 31.6 g/dL (32-36); Mean Corpuscular Hgb 34.3 pg (27.0-32.0); Mean Corpuscular Volume 108.4 fL (80-94); Mean Platelet Vol. 11.1 fl (6.2-12.0); Monocyte# 0.76 X10^3/uL; Monocyte% 9.6 % (0-10); NRBC Flagged by Analyzer 0 % (0-5); Neutrophil # 6.38 X10^3/uL (2.7-7.7); Neutrophil % 80.1 % (47-70); POSITIVE COUNT YES; POSITIVE MORPHOLOGY YES; Platelet Count 142 K/mm3 (150-450); RBC Distribution Width CV 16.2 % (11.6-14.6); RBC Distribution Width SD 65.8 fl (35.1-43.9); Red Blood Count 3.94 M/mm3 (4.6-6.2)
[2021-11-14 06:49] LABS: Differential Indicated SCAN CRITERIA MET
[2021-11-14 07:09] LABS: Anisocytosis 1+; Differential Comment SCANNED; Macrocytosis 1+; Platelet Estimate ADEQUATE (ADEQ)
[2021-11-14 07:12] LABS: Anion Gap 6 (5-15); BUN 37 mg/dL (7-18); BUN/Creat Ratio 23.7 RATIO (10-20); Chloride 104 mmol/L (98-107); Creatinine, Serum 1.56 mg/dL (0.70-1.30); EST Glomerular Filtration Rate 45 mL/min (>60); Est Glom Filt Rate - Afr Amer 55 mL/min (>60); Estimated Creatinine Clearance 31.88 ml/min; Glucose 141 mg/dL (74-106); Sodium Level 143 mmol/L (136-145)
[2021-11-14 07:39] LABS: Magnesium 1.7 mg/dL (1.6-2.6); Phosphorus 2.3 mg/dL (2.5-4.9)
--- NOTE | 2021-11-14 09:29 | PN_ITS ---
Subjective Subjective Patient is still having some abdominal pain and left lower quadrant. He rates his pain at a 4 out of 10. He did have 1 episode of lower GI bleeding this morning. Objective Data Objective Data Vital Signs: Vital Signs Temp Pulse Resp BP Pulse Ox O2 Del Method 98.0 F 113 H 20 H 106/78 95 Room Air 11/14/21 03:40 11/14/21 07:29 11/14/21 03:40 11/14/21 03:40 11/14/21 03:40 11/14/21 03:45 Oxygen Delivery Method Room Air Weight: 146 lb 2.664 oz Body Mass Index (BMI) 21.2 Intake & Output: Intake and Output for Last 24 Hours 11/12/21 11/13/21 11/14/21 23:59 23:59 23:59 Intake Total 400 / 640 400 / 400 Balance 400 / 640 400 / 400 Lab / Micro Data Result Diagrams: 11/14/21 06:30 11/14/21 06:30 Labs: Laboratory Results - last 24 hr 11/13/21 15:10: WBC 8.9, RBC 4.28 L, Hgb 14.5, Hct 43.1, MCV 100.7 H, MCH 33.9 H , MCHC 33.6, RDW Std Deviation 59.9 H, RDW Coeff of Edward 16.2 H, Plt Count 220, MPV 11.5, Immature Gran % (Auto) 0.600, Neut % (Auto) 78.8 H, Lymph % (Auto) 9.8 L, [place] % (Auto) 10.1 H, Eos % (Auto) 0.2, Baso % (Auto) 0.5, Absolute Neuts (auto) 7.0, Absolute Lymphs (auto) 0.87, Nucleated RBC % 0 11/13/21 15:10: Sodium 142, Potassium 3.6, Chloride 101, Carbon Dioxide 33.0 H, Anion Gap 8, BUN 35 H, Creatinine 1.76 H, Estim Creat Clear Calc 28.47, Est GFR (MDRD) Af Amer 47 L, Est GFR (MDRD) Non-Af 39 L, BUN/Creatinine Ratio 19.9, Glucose 176 H, Calcium 9.4 11/13/21 15:10: Lactic Acid Cancelled 11/13/21 15:10: B-Natriuretic Peptide 2704.7 H 11/13/21 15:10: PT 24.1 H, INR 2.2 11/13/21 15:10: Blood Type O POSITIVE, Antibody Screen NEGATIVE 11/13/21 15:15: Urine Color Yellow, Urine Clarity Clear, Urine pH 6.0, Ur Specific [place] 1.010, Urine Protein 30 H, Urine Glucose (UA) Normal, Urine Ketones Negative, Urine Occult Blood 250 H, Urine Nitrite Negative, Urine Bilirubin Negative, Urine Urobilinogen 1 H, Ur Leukocyte Esterase 25 H, Urine RBC 0-5 SEEN, Urine WBC 0 SEEN, Ur Squamous Epith Cells 0 SEEN, Urine Bacteria 0 SEEN, Urine Mucus 0 SEEN 11/13/21 18:10: Lactic Acid Cancelled 11/13/21 21:43: Hgb 13.8, Hct 40.1 11/14/21 06:05: Sodium Cancelled, Potassium Cancelled, Chloride Cancelled, Carbon Dioxide Cancelled, Anion Gap Cancelled, BUN Cancelled, Creatinine Cancelled, Estim Creat Clear Calc Cancelled, Est GFR (MDRD) Af Amer Cancelled, Est GFR (MDRD) Non-Af Cancelled, BUN/Creatinine Ratio Cancelled, Glucose Cancelled, Calcium Cancelled 11/14/21 06:30: WBC 8.0, RBC 3.94 L, Hgb 13.5, Hct 42.7, MCV 108.4 H D, MCH 34.3 H, MCHC 31.6 L D, RDW Std Deviation 65.8 H, RDW Coeff of Edward 16.2 H, Plt Count 142 L, MPV 11.1, Immature Gran % (Auto) 0.400, Neut % (Auto) 80.1 H, Lymph % (Auto) 9.1 L, [place] % (Auto) 9.6, Eos % (Auto) 0.3, Baso % (Auto) 0.5, Absolute Neuts (auto) 6.4, Absolute Lymphs (auto) 0.72 L, Nucleated RBC % 0, Differential Comment SCANNED, Platelet Estimate ADEQUATE, Anisocytosis 1+, Macrocytosis 1+ 11/14/21 06:30: Sodium 143, Potassium 3.0 L, Chloride 104, Carbon Dioxide 33.0 H , Anion Gap 6, BUN 37 H, Creatinine 1.56 H, Estim Creat Clear Calc 31.88, Est GFR (MDRD) Af Amer 55 L, Est GFR (MDRD) Non-Af 45 L, BUN/Creatinine Ratio 23.7 H , Glucose 141 H, Calcium 9.0 11/14/21 06:30: Phosphorus 2.3 L, Magnesium 1.7 Micro: Microbiology 11/13/21 Unknown Stool Stool Occult Blood (AMMY) - Final Occult Blood Positive Radiography Diagnostic Testing: Radiology Impression Chest X-Ray 11/13/21 15:19 IMPRESSION: There are no acute findings. Electronically Signed: Petr Smith MD at 15:36 EDT , Abdomen/Pelvis CT 11/13/21 16:01 IMPRESSION: (NOT LISTED IN ORDER OF SIGNIFICANCE) Acute sigmoid diverticulitis. There are atherosclerotic calcifications of visualized coronary arteries. Other findings as above. Electronically Signed: Petr Smith MD at 17:46 EDT , Physical Exam Const alert, oriented x3 and no apparent distress General Appearance: cooperative HEENT normocephalic and moist oral mucous membranes Eyes PERRL, EOMs intact bilaterally and conjunctivae normal Neck supple and no JVD Resp normal respiratory effort, no retractions, no use of accessory muscles and clear to auscultation bilaterally Auscultation: Negative for crackles, rales, rhonchi or wheezes Cardio regular rate, S1 normal heart sound, S2 normal heart sound and no murmurs Cardio Narrative: Irregular rhythm GI soft to palpation, non-tender and non-distended; Negative for hepatosplenomegaly Extremity no clubbing, cyanosis or edema Skin no rashes or lesions noted Neuro no focal motor deficits and no sensory deficits noted Psych affect normal Appearance: appropriate Assessment & Plan Assessment/Plan (1) Ischemic colitis: PLAN: Lower GI bleeding likely secondary to ischemic colitis associated with the patient with PAD and acute diverticulitis. His hemoglobin seems to be stable at this time. I do not think he needs any endoscopy as his hemoglobin is stable. (2) Acute diverticulitis of intestine: PLAN: Continue antibiotics as previously ordered. I am okay with him having a full liquid diet with a stool softener once daily. Charges/Coding Visit Charges Inpatient E&M: 63857 Subs Hosp L2
[2021-11-14] MEDS: Mirtazapine 15 MG Tablet 7.5 MG PO (09:43)
[2021-11-14] MEDS: Metoprolol Tartrate 50 MG Tablet PO ×2 (09:43→20:17)
[2021-11-14] MEDS: Memantine Hydrochloride 10 MG Tablet PO ×2 (09:43→20:17)
[2021-11-14] MEDS: Finasteride 5 MG Tablet PO (09:44)
[2021-11-14] MEDS: Ciprofloxacin 400 MG/200 ML BAG 200 MG IV ×2 (09:44→20:17)
--- NOTE | 2021-11-14 09:50 | CASEMGMT ---
KAREL GARCIA Face to Face with patient for initial transition planning/care coordination assessment. RN CM introduced self and role at [facility]. Patient sitting in chair, alert and oriented. Patient willing to participate in assessment and is able to answer all questions appropriately. Care providers, pharmacy, and demographics verified. Patient wishes to discharge to [facility] for additional rehab. Patient states he has no further needs or concerns at this time. RN RADHA updated SW regarding request for SNF at discharge. CM to follow for discharge planning needs that may arise. PCP: Kwaku Specialists: Therese, pain; Navneet, sourcing assistant Preferred Pharmacy: [facility] Insurance: [employer] Prescription Benefit: yes Living Will/HPOA: yes, Wisam Xavier HPOA LNOK: son Living Arrangements: Patient lives alone in a single story home with 3 steps and railing to enter the home. Patient states he was independent at home prior to hospitalization. Transportation: self, son DME/HHC: Patient states he has shower chair, cane, walker, and grab bars at home. Disposition Plan: SNF pending progress with therapy and acceptance. Saniya ROY, RN, CM
--- NOTE | 2021-11-14 10:38 | PN.HOSP_ITS ---
Subjective Subjective Doing well, no issues overnight. Continues to have some bloody bowel movements however his hemoglobin only dropped from 14.5-13.5, will continue to monitor Objective Data Objective Data Vital Signs: Vital Signs Temp Pulse Resp BP Pulse Ox O2 Del Method 97 F L 111 H 16 105/63 95 Room Air 11/14/21 09:41 11/14/21 09:43 11/14/21 09:41 11/14/21 09:41 11/14/21 09:41 11/14/21 10:00 Oxygen Delivery Method Room Air Weight: 146 lb 2.664 oz Body Mass Index (BMI) 21.2 Intake & Output: Intake and Output for Last 24 Hours 11/13/21 11/14/21 11/15/21 03:59 03:59 03:59 Intake Total 640 / 640 160 / 160 Balance 640 / 640 160 / 160 Lab / Micro Data Result Diagrams: 11/14/21 06:30 11/14/21 06:30 Labs: Laboratory Results - last 24 hr 11/13/21 15:10: WBC 8.9, RBC 4.28 L, Hgb 14.5, Hct 43.1, MCV 100.7 H, MCH 33.9 H , MCHC 33.6, RDW Std Deviation 59.9 H, RDW Coeff of Edward 16.2 H, Plt Count 220, MPV 11.5, Immature Gran % (Auto) 0.600, Neut % (Auto) 78.8 H, Lymph % (Auto) 9.8 L, [place] % (Auto) 10.1 H, Eos % (Auto) 0.2, Baso % (Auto) 0.5, Absolute Neuts (auto) 7.0, Absolute Lymphs (auto) 0.87, Nucleated RBC % 0 11/13/21 15:10: Sodium 142, Potassium 3.6, Chloride 101, Carbon Dioxide 33.0 H, Anion Gap 8, BUN 35 H, Creatinine 1.76 H, Estim Creat Clear Calc 28.47, Est GFR (MDRD) Af Amer 47 L, Est GFR (MDRD) Non-Af 39 L, BUN/Creatinine Ratio 19.9, Glucose 176 H, Calcium 9.4 11/13/21 15:10: Lactic Acid Cancelled 11/13/21 15:10: B-Natriuretic Peptide 2704.7 H 11/13/21 15:10: PT 24.1 H, INR 2.2 11/13/21 15:10: Blood Type O POSITIVE, Antibody Screen NEGATIVE 11/13/21 15:15: Urine Color Yellow, Urine Clarity Clear, Urine pH 6.0, Ur Specific [place] 1.010, Urine Protein 30 H, Urine Glucose (UA) Normal, Urine Ketones Negative, Urine Occult Blood 250 H, Urine Nitrite Negative, Urine Bilirubin Negative, Urine Urobilinogen 1 H, Ur Leukocyte Esterase 25 H, Urine RBC 0-5 SEEN, Urine WBC 0 SEEN, Ur Squamous Epith Cells 0 SEEN, Urine Bacteria 0 SEEN, Urine Mucus 0 SEEN 11/13/21 18:10: Lactic Acid Cancelled 11/13/21 21:43: Hgb 13.8, Hct 40.1 11/14/21 06:05: Sodium Cancelled, Potassium Cancelled, Chloride Cancelled, Carbon Dioxide Cancelled, Anion Gap Cancelled, BUN Cancelled, Creatinine Cancelled, Estim Creat Clear Calc Cancelled, Est GFR (MDRD) Af Amer Cancelled, Est GFR (MDRD) Non-Af Cancelled, BUN/Creatinine Ratio Cancelled, Glucose Cancelled, Calcium Cancelled 11/14/21 06:30: WBC 8.0, RBC 3.94 L, Hgb 13.5, Hct 42.7, MCV 108.4 H D, MCH 34.3 H, MCHC 31.6 L D, RDW Std Deviation 65.8 H, RDW Coeff of Edward 16.2 H, Plt Count 142 L, MPV 11.1, Immature Gran % (Auto) 0.400, Neut % (Auto) 80.1 H, Lymph % (Auto) 9.1 L, [place] % (Auto) 9.6, Eos % (Auto) 0.3, Baso % (Auto) 0.5, Absolute Neuts (auto) 6.4, Absolute Lymphs (auto) 0.72 L, Nucleated RBC % 0, Differential Comment SCANNED, Platelet Estimate ADEQUATE, Anisocytosis 1+, Macrocytosis 1+ 11/14/21 06:30: Sodium 143, Potassium 3.0 L, Chloride 104, Carbon Dioxide 33.0 H , Anion Gap 6, BUN 37 H, Creatinine 1.56 H, Estim Creat Clear Calc 31.88, Est GFR (MDRD) Af Amer 55 L, Est GFR (MDRD) Non-Af 45 L, BUN/Creatinine Ratio 23.7 H , Glucose 141 H, Calcium 9.0 11/14/21 06:30: Phosphorus 2.3 L, Magnesium 1.7 Micro: Microbiology 11/13/21 Unknown Stool Stool Occult Blood (AMMY) - Final Occult Blood Positive Radiography Diagnostic Testing: Radiology Impression Chest X-Ray 11/13/21 15:19 IMPRESSION: There are no acute findings. Electronically Signed: Petr Smith MD at 15:36 EDT , Abdomen/Pelvis CT 11/13/21 16:01 IMPRESSION: (NOT LISTED IN ORDER OF SIGNIFICANCE) Acute sigmoid diverticulitis. There are atherosclerotic calcifications of visualized coronary arteries. Other findings as above. Electronically Signed: Petr Smith MD at 17:46 EDT , Physical Exam Const alert, oriented x3 and no apparent distress General Appearance: cooperative HEENT normocephalic and moist oral mucous membranes Eyes PERRL, EOMs intact bilaterally and conjunctivae normal Neck supple and no JVD Resp normal respiratory effort, no retractions, no use of accessory muscles and clear to auscultation bilaterally Auscultation: Negative for crackles, rales, rhonchi or wheezes Cardio regular rate, S1 normal heart sound, S2 normal heart sound and no murmurs Cardio Narrative: Irregular rhythm GI soft to palpation, non-tender and non-distended; Negative for hepatosplenomegaly Extremity no clubbing, cyanosis or edema Skin no rashes or lesions noted Neuro no focal motor deficits and no sensory deficits noted Psych affect normal Appearance: appropriate Assessment & Plan Assessment/Plan (1) Sigmoid diverticulitis: (2) JOSE (acute kidney injury): (3) Ischemic colitis: PLAN: Plan 1. Acute sigmoid diverticulitis with associated GI bleed from ischemic colitis and an JOSE ? We will hold his Eliquis ? Continue with antibiotics ? Place him on clear liquid diet ? We will hold IV fluids as well as his Lasix secondary to his JOSE and also the fact that his BNP is significantly elevated ? Creatinine is improving, will continue to monitor ? Hemoglobin last night at 10 PM was 13.8 and this morning was only 13.5 we will recheck this afternoon at 2 PM ? PT/OT for evaluation and possible placement 2. HTN/new onset A. fib ? Blood pressure is stable ? We will hold start and his Lasix secondary to his JOSE ? Continue with his metoprolol 3. Dementia ? Can continue with his home medications 4. Hypothyroidism ? Stable ? Continue with Synthroid DVT: SCDs Charges/Coding Visit Charges Inpatient E&M: 79579 Subs Hosp L2
[2021-11-14 14:26] LABS: Hematocrit 39.2 % (40-54); Hemoglobin 13.2 g/dL (13.0-16.5)
--- NOTE | 2021-11-14 16:37 | CM.ED ---
RICHELLE called Nhi at [facility]. Nhi said that they have beds. The fax number for [facility] [phone]. RICHELLE also left message for admission staff that patient wants to be placed at [facility] upon discharge . Plan is for RICHELLE to fax referral packet to [facility] today. Elayne CABAN
[2021-11-14] MEDS: Donepezil HCl 10 MG Tablet PO (20:17)
[2021-11-15] VITALS (11 sets, daily range): BP systolic 113–136; BP diastolic 75–99; PULSE 72–120; RESP 16–20; TEMP 35.7–36.8; O2SAT 95–98
[2021-11-15] MEDS: metroNIDAZOLE 500 MG/100 ML BAG 100 MG IV ×3 (05:35→20:41)
[2021-11-15] MEDS: Levothyroxine 50 MCG Tablet PO (05:35)
[2021-11-15 06:32] LABS: Absolute Lymphocyte Count 0.99 X10^3/uL (0.83-4.51); Absolute Neutrophil Count 7.5 X10^3/uL (2.0-7.7); Basophil# 0.04 X10^3/uL; Basophil% 0.4 % (0-1); Eosinophil# 0.09 X10^3/uL; Eosinophils% 0.9 % (0-5); Hematocrit 36.1 % (40-54); Hemoglobin 11.8 g/dL (13.0-16.5); Lymphocyte # 0.99 X10^3/ul (0.83-4.51); Lymphocyte % 10.3 % (19-41); Mean Corp Hgb Conc 32.7 g/dL (32-36); Mean Corpuscular Hgb 33.7 pg (27.0-32.0); Mean Corpuscular Volume 103.1 fL (80-94); Mean Platelet Vol. 11.4 fl (6.2-12.0); Monocyte# 0.99 X10^3/uL; Monocyte% 10.3 % (0-10); NRBC Flagged by Analyzer 0 % (0-5); Neutrophil # 7.45 X10^3/uL (2.7-7.7); Neutrophil % 77.5 % (47-70); Platelet Count 192 K/mm3 (150-450); RBC Distribution Width SD 61.3 fl (35.1-43.9); White Blood Count 9.6 K/mm3 (4.4-11.0)
[2021-11-15 07:04] LABS: Anion Gap 5 (5-15); BUN 31 mg/dL (7-18); BUN/Creat Ratio 24.2 RATIO (10-20); Calcium,Total 8.7 mg/dL (8.5-10.1); Chloride 105 mmol/L (98-107); Creatinine, Serum 1.28 mg/dL (0.70-1.30); EST Glomerular Filtration Rate 57 mL/min (>60); Est Glom Filt Rate - Afr Amer 68 mL/min (>60); Estimated Creatinine Clearance 39.49 ml/min; Glucose 134 mg/dL (74-106); Potassium 2.8 mmol/L (3.5-5.1); Sodium Level 143 mmol/L (136-145)
[2021-11-15] MEDS: Mirtazapine 15 MG Tablet 7.5 MG PO (08:37)
[2021-11-15] MEDS: Ciprofloxacin 400 MG/200 ML BAG 200 MG IV (08:37)
[2021-11-15] MEDS: Metoprolol Tartrate 50 MG Tablet PO ×2 (08:38→20:40)
[2021-11-15] MEDS: Finasteride 5 MG Tablet PO (08:39)
[2021-11-15] MEDS: Memantine Hydrochloride 10 MG Tablet PO ×2 (08:39→20:40)
[2021-11-15] MEDS: Potassium Chloride Oral Tablet 20 MEQ 60 MEQ PO (08:49)
--- NOTE | 2021-11-15 09:37 | PCM.PN.HOSP ---
Subjective Subjective Continues to have some bloody bowel movements and now his hemoglobin is down to 11.8. The number of bowel movements appears to be slowing down. Potassium is also low at 2.8 so we will replace that. No issues overnight Objective Data Objective Data Vital Signs: Vital Signs Temp Pulse Resp BP Pulse Ox O2 Del Method 98.3 F 120 H 16 121/76 H 96 Room Air 11/15/21 08:29 11/15/21 08:38 11/15/21 08:29 11/15/21 08:29 11/15/21 08:29 11/15/21 08:29 Oxygen Delivery Method Room Air Weight: 148 lb 9.465 oz Body Mass Index (BMI) 21.2 Intake & Output: Intake and Output for Last 24 Hours 11/14/21 11/15/21 11/16/21 03:59 03:59 03:59 Intake Total 640 / 640 1659 / 1659 150 / 150 Output Total 0 / 0 Balance 640 / 640 1659 / 1659 150 / 150 Lab / Micro Data Result Diagrams: 11/15/21 06:25 11/15/21 06:25 Labs: Laboratory Results - last 24 hr 11/14/21 13:50: Hgb 13.2, Hct 39.2 L 11/15/21 06:25: WBC 9.6, RBC 3.50 L, Hgb 11.8 L, Hct 36.1 L, MCV 103.1 H, MCH 33.7 H, MCHC 32.7, RDW Std Deviation 61.3 H, RDW Coeff of Edward 16.0 H, Plt Count 192, MPV 11.4, Immature Gran % (Auto) 0.600, Neut % (Auto) 77.5 H, Lymph % (Auto) 10.3 L, [place] % (Auto) 10.3 H, Eos % (Auto) 0.9, Baso % (Auto) 0.4, Absolute Neuts (auto) 7.5, Absolute Lymphs (auto) 0.99, Nucleated RBC % 0 11/15/21 06:25: Sodium 143, Potassium 2.8 L, Chloride 105, Carbon Dioxide 33.0 H, Anion Gap 5, BUN 31 H, Creatinine 1.28, Estim Creat Clear Calc 39.49, Est GFR (MDRD) Af Amer 68, Est GFR (MDRD) Non-Af 57 L, BUN/Creatinine Ratio 24.2 H, Glucose 134 H, Calcium 8.7 Micro: Microbiology 11/13/21 Unknown Stool Stool Occult Blood (AMMY) - Final Occult Blood Positive Physical Exam Narrative Const alert, oriented x3 and no apparent distress General Appearance: cooperative HEENT normocephalic and moist oral mucous membranes Eyes PERRL, EOMs intact bilaterally and conjunctivae normal Neck supple and no JVD Resp normal respiratory effort, no retractions, no use of accessory muscles and clear to auscultation bilaterally Auscultation: Negative for crackles, rales, rhonchi or wheezes Cardio regular rate, S1 normal heart sound, S2 normal heart sound, DARIAN Cardio Narrative: Irregular rhythm GI soft to palpation, non-tender and non-distended; Negative for hepatosplenomegaly Extremity no clubbing, cyanosis or edema Skin no rashes or lesions noted Neuro no focal motor deficits and no sensory deficits noted Psych affect normal Appearance: appropriate Assessment & Plan Assessment/Plan (1) Sigmoid diverticulitis: (2) JOSE (acute kidney injury): (3) Ischemic colitis: PLAN: Plan 1. Acute sigmoid diverticulitis with associated GI bleed from ischemic colitis and an JOSE ? We will hold his Eliquis, appreciate GIs input ? Continue with antibiotics ? Place him on clear liquid diet ? We will hold IV fluids as well as his Lasix secondary to his JOSE and also the fact that his BNP is significantly elevated ? Creatinine is improving, will continue to monitor ? Hemoglobin today is 11.8 ? PT/OT for evaluation and possible placement 2. HTN/new onset A. fib ? Blood pressure is stable ? We will hold losartan and his Lasix secondary to his JOSE ? Continue with his metoprolol 3. Dementia ? Can continue with his home medications 4. Hypothyroidism ? Stable ? Continue with Synthroid Disposition to SNF on discharge, family has been try to get him into [facility] DVT: SCDs Charges/Coding Visit Charges Inpatient E&M: 68337 Subs Hosp L2
--- NOTE | 2021-11-15 18:59 | PN_ITS ---
Subjective Subjective Patient continues to have bleeding per rectum. He still having left lower quadrant pain but it is improving. He has not been eating much. Objective Data Objective Data Vital Signs: Vital Signs Temp Pulse Resp BP Pulse Ox O2 Del Method 97.4 F L 119 H 16 113/79 97 Room Air 11/15/21 14:10 11/15/21 15:35 11/15/21 14:10 11/15/21 14:10 11/15/21 14:10 11/15/21 14:11 Oxygen Delivery Method Room Air Weight: 148 lb 9.465 oz Body Mass Index (BMI) 21.2 Intake & Output: Intake and Output for Last 24 Hours 11/13/21 11/14/21 11/15/21 23:59 23:59 23:59 Intake Total 400 / 640 1839 / 1899 1230 / 1230 Output Total 0 / 0 Balance 400 / 640 1839 / 1899 1230 / 1230 Lab / Micro Data Result Diagrams: 11/15/21 06:25 11/15/21 06:25 Labs: Laboratory Results - last 24 hr 11/15/21 06:25: WBC 9.6, RBC 3.50 L, Hgb 11.8 L, Hct 36.1 L, MCV 103.1 H, MCH 33.7 H, MCHC 32.7, RDW Std Deviation 61.3 H, RDW Coeff of Edward 16.0 H, Plt Count 192, MPV 11.4, Immature Gran % (Auto) 0.600, Neut % (Auto) 77.5 H, Lymph % (Auto) 10.3 L, [place] % (Auto) 10.3 H, Eos % (Auto) 0.9, Baso % (Auto) 0.4, Absolute Neuts (auto) 7.5, Absolute Lymphs (auto) 0.99, Nucleated RBC % 0 11/15/21 06:25: Sodium 143, Potassium 2.8 L, Chloride 105, Carbon Dioxide 33.0 H , Anion Gap 5, BUN 31 H, Creatinine 1.28, Estim Creat Clear Calc 39.49, Est GFR (MDRD) Af Amer 68, Est GFR (MDRD) Non-Af 57 L, BUN/Creatinine Ratio 24.2 H, Glucose 134 H, Calcium 8.7 Micro: Microbiology 11/13/21 Unknown Stool Stool Occult Blood (AMMY) - Final Occult Blood Positive Physical Exam Narrative Const alert, oriented x3 and no apparent distress General Appearance: cooperative HEENT normocephalic and moist oral mucous membranes Eyes PERRL, EOMs intact bilaterally and conjunctivae normal Neck supple and no JVD Resp normal respiratory effort, no retractions, no use of accessory muscles and clear to auscultation bilaterally Auscultation: Negative for crackles, rales, rhonchi or wheezes Cardio regular rate, S1 normal heart sound, S2 normal heart sound, DARIAN Cardio Narrative: Irregular rhythm GI soft to palpation, non-tender and non-distended; Negative for hepatosplenomegaly Extremity no clubbing, cyanosis or edema Skin no rashes or lesions noted Neuro no focal motor deficits and no sensory deficits noted Psych affect normal Appearance: appropriate Assessment & Plan Assessment/Plan (1) Ischemic colitis: PLAN: Ischemic colitis in the setting of acute diverticulitis. He is on antibiotic therapy. His hemoglobin has trended down but it still is not in a dangerous range. I would repeat his CT scan abdomen pelvis tomorrow and see if it is worsening and regarding inflammation, cold abscess, fat stranding or lymphadenopathy. (2) Acute diverticulitis of intestine: PLAN: Continue IV antibiotics. Await on CT results for further recommendations regarding acute diverticulitis. Charges/Coding Visit Charges Inpatient E&M: 86597 Subs Hosp L2
[2021-11-15] MEDS: Donepezil HCl 10 MG Tablet PO (20:40)
[2021-11-15] MEDS: Potassium Chloride Oral Tablet 20 MEQ 40 MEQ PO (20:47)
[2021-11-15] MEDS: Magnesium Sulfate 4gm/100mL 4 GM/100 ML IV.SOLN. IV (20:47)
[2021-11-16] VITALS (13 sets, daily range): BP systolic 105–126; BP diastolic 55–94; PULSE 62–103; RESP 16–20; TEMP 36.4–36.9; O2SAT 96–98
[2021-11-16] MEDS: Ciprofloxacin 400 MG/200 ML BAG 200 MG IV (00:59)
[2021-11-16] MEDS: Levothyroxine 50 MCG Tablet PO (05:46)
[2021-11-16] MEDS: metroNIDAZOLE 500 MG/100 ML BAG 100 MG IV (05:46)
[2021-11-16 05:50] LABS: Absolute Lymphocyte Count 0.91 X10^3/uL (0.83-4.51); Basophil# 0.04 X10^3/uL; Basophil% 0.4 % (0-1); Eosinophil# 0.08 X10^3/uL; Eosinophils% 0.8 % (0-5); Hematocrit 37.3 % (40-54); Hemoglobin 12.3 g/dL (13.0-16.5); Lymphocyte # 0.91 X10^3/ul (0.83-4.51); Lymphocyte % 9.1 % (19-41); Mean Platelet Vol. 11.7 fl (6.2-12.0); Monocyte# 0.91 X10^3/uL; Monocyte% 9.1 % (0-10); NRBC Flagged by Analyzer 0.2 % (0-5); Neutrophil # 8.03 X10^3/uL (2.7-7.7); Platelet Count 201 K/mm3 (150-450); RBC Distribution Width CV 16.1 % (11.6-14.6); RBC Distribution Width SD 61.5 fl (35.1-43.9); Red Blood Count 3.62 M/mm3 (4.6-6.2)
[2021-11-16 06:27] LABS: Anion Gap 4 (5-15); BUN 25 mg/dL (7-18); BUN/Creat Ratio 22.7 RATIO (10-20); Calcium,Total 8.7 mg/dL (8.5-10.1); Chloride 109 mmol/L (98-107); EST Glomerular Filtration Rate 67 mL/min (>60); Est Glom Filt Rate - Afr Amer 82 mL/min (>60); Glucose 135 mg/dL (74-106); Magnesium 3.2 mg/dL (1.6-2.6); Phosphorus 1.6 mg/dL (2.5-4.9); Potassium 3.9 mmol/L (3.5-5.1); Sodium Level 143 mmol/L (136-145)
--- NOTE | 2021-11-16 09:08 | CASEMGMT ---
RICHELLE received a voice mail from Katarina at [facility] and their fax machine is broken. She asked that RICHELLE e-mail her the referral. RICHELLE e-mailed the referral to Katarina at [facility]. Await response. Vy CHRISTIANSON
[2021-11-16] MEDS: Finasteride 5 MG Tablet PO (10:40)
[2021-11-16] MEDS: Memantine Hydrochloride 10 MG Tablet PO ×2 (10:40→22:18)
[2021-11-16] MEDS: Mirtazapine 15 MG Tablet 7.5 MG PO (10:40)
[2021-11-16] MEDS: Metoprolol Tartrate 50 MG Tablet PO ×2 (10:40→22:17)
--- NOTE | 2021-11-16 11:14 | CASEMGMT ---
[facility] is able to accept patient. SW notified physician and RN. RN will obtain a COVID test. SW notified patient he will be going to [facility] today as well as his son. Patient's son asked that SW call him tomorrow when patient is leaving today. Await orders and COVID test. Vy Suggs CARTOGRAPHIC TECHNICIAN SAMMY
[2021-11-16] MEDS: Ciprofloxacin 500 MG Tablet PO ×2 (15:21→22:24)
[2021-11-16] MEDS: metroNIDAZOLE 500 MG Tablet PO ×2 (15:21→22:24)
[2021-11-16] MEDS: Na Biphos/Potassium Phosphate PACKET 1 PACKET PO (15:22)
--- NOTE | 2021-11-16 15:23 | CASEMGMT ---
Patient is not going to be discharged today. SW notified patient and Katarina at [facility]. Vy Suggs NEUROSURGICAL PHYSICIAN ASSISTANT SAMMY
--- NOTE | 2021-11-16 20:58 | PCM.PN.HOSP ---
Subjective Subjective Patient was seen and examined today, he has had no rectal bleeding today, patient is alert but confused, he is directable and answer simple questions appropriately. Objective Data Objective Data Vital Signs: Vital Signs Temp Pulse Resp BP Pulse Ox O2 Del Method 98.2 F 103 H 16 105/65 97 Room Air 11/16/21 16:30 11/16/21 19:00 11/16/21 16:30 11/16/21 16:30 11/16/21 16:30 11/16/21 16:30 Oxygen Delivery Method Room Air Weight: 68.2 kg Body Mass Index (BMI) 21.2 Intake & Output: Intake and Output for Last 24 Hours 11/14/21 11/15/21 11/16/21 23:59 23:59 23:59 Intake Total 1839 / 1899 1380 / 1380 450 / 450 Output Total 0 / 0 Balance 1839 / 1899 1380 / 1380 450 / 450 Lab / Micro Data Result Diagrams: 11/16/21 05:09 11/16/21 05:09 Labs: Laboratory Results - last 24 hr 11/16/21 05:09: WBC 10.0, RBC 3.62 L, Hgb 12.3 L, Hct 37.3 L, MCV 103.0 H, MCH 34.0 H, MCHC 33.0, RDW Std Deviation 61.5 H, RDW Coeff of Edward 16.1 H, Plt Count 201, MPV 11.7, Immature Gran % (Auto) 0.600, Neut % (Auto) 80.0 H, Lymph % (Auto) 9.1 L, [place] % (Auto) 9.1, Eos % (Auto) 0.8, Baso % (Auto) 0.4, Absolute Neuts (auto) 8.0 H, Absolute Lymphs (auto) 0.91, Nucleated RBC % 0.2 11/16/21 05:09: Sodium 143, Potassium 3.9, Chloride 109 H, Carbon Dioxide 30.0, Anion Gap 4 L, BUN 25 H, Creatinine 1.10, Estim Creat Clear Calc 46.50, Est GFR (MDRD) Af Amer 82, Est GFR (MDRD) Non-Af 67, BUN/Creatinine Ratio 22.7 H, Glucose 135 H, Calcium 8.7, Phosphorus 1.6 L, Magnesium 3.2 H Micro: Microbiology 11/16/21 12:35 Nasal Secretion SARS-CoV-2 Antigen (Rapid) - Final 11/13/21 Unknown Stool Stool Occult Blood (AMMY) - Final Occult Blood Positive Physical Exam Const alert and no apparent distress Constitutional Narrative: Patient appears stated age General Appearance: cooperative, well kempt and well developed Orientation / Consciousness: awake and confused HEENT normocephalic, head/scalp atraumatic and moist oral mucous membranes Eyes PERRL, EOMs intact bilaterally and conjunctivae normal Neck nuchal rigidity, supple, no JVD, thyroid normal and no carotid bruits General: trachea midline Resp normal respiratory effort, no retractions, no use of accessory muscles and clear to auscultation bilaterally Auscultation: Negative for rales, rhonchi or wheezes Cardio S1 normal heart sound, S2 normal heart sound, no murmurs, no rub and no gallops Cardio Narrative: Heart rate and rhythm is irregular with periods of AV pacing GI normal to inspection, nondistended, normoactive bowel sounds, soft to palpation, non-tender and non-distended Extremity normal to inspection and no clubbing, cyanosis or edema Skin no rashes or lesions noted General Skin Exam: no breakdown Neuro oriented x3, CN's II-XII intact bilaterally, moves all extremities, no focal motor deficits and no sensory deficits noted Sensorium / Orientation: awake and alert Speech: speech normal Psych Psych Narrative: Patient exhibits cognitive impairment, he does answer simple questions appropriately Assessment & Plan Assessment/Plan (1) Ischemic colitis: PLAN: Plan 1. Acute diverticulitis of the sigmoid colon-continue present antibiotics, they will be given orally as he is lost his IV access. Diet will be advanced. #2 ischemic colitis-continue present antibiotic coverage #3 dementia-patient is on Namenda and Aricept #4 acute kidney injury-resolved at this time #5 persistent atrial fibrillation-patient is rate control at this time #6 essential hypertension-patient's losartan is being held at this time, it will be resumed upon discharge from the hospital #7 bright red rectal bleeding secondary to #1 and #2-patient's Eliquis is currently being held, I recommend this be resumed 2 weeks after he is discharged to the hospital and observe for any further rectal bleeding. #8 hypothyroidism-patient is on Synthroid #9 moderate aortic stenosis-patient follows up with cardiology as an outpatient #10 hyperlipidemia-patient is supposed to be taking pravastatin, and this was not listed on his home medication list, I will add a statin to his medications when he is discharged. Charges/Coding Visit Charges Inpatient E&M: 87902 Subs Hosp L2
[2021-11-16] MEDS: Donepezil HCl 10 MG Tablet PO (22:16)
[2021-11-17] VITALS (11 sets, daily range): BP systolic 114–154; BP diastolic 78–93; PULSE 70–110; RESP 16–18; TEMP 36.4–37.3; O2SAT 92–98
[2021-11-17] MEDS: metroNIDAZOLE 500 MG Tablet PO ×3 (05:59→21:29)
[2021-11-17] MEDS: Levothyroxine 50 MCG Tablet PO (06:00)
--- NOTE | 2021-11-17 06:13 | EKG12_ITS ---
Test Reason : RYTHMN CHANGE Blood Pressure : / mmHG Vent. Rate : 119 BPM Atrial Rate : 000 BPM P-R Int : 000 ms QRS Dur : 120 ms QT Int : 294 ms P-R-T Axes : 000 -45 119 degrees QTc Int : 413 ms Atrial fibrillation with rapid ventricular response Left anterior fascicular block Left ventricular hypertrophy with QRS widening and repolarization abnormality ( R in aVL , [place] pr oduct , Romhilt-Dasilva ) Cannot rule out Septal infarct , age undetermined Abnormal ECG Confirmed by AUDIE TOLEDO, KYUNG ([id number]), scientific editor OLIVER BARNETT ([id number]) on 11/18/2021 10:51:47 AM Referred By: NARCISA Confirmed By:KYUNG BRONSON MD
--- NOTE | 2021-11-17 09:00 | PCM.PROGNOTE ---
Subjective Subjective Patient has not had any more signs and symptoms of bleeding. He is not having any more abdominal pain. He has been afebrile. Objective Data Objective Data Vital Signs: Vital Signs Temp Pulse Resp BP Pulse Ox O2 Del Method 98.2 F 101 H 18 127/93 H 92 Room Air 11/17/21 15:18 11/17/21 15:18 11/17/21 15:18 11/17/21 15:18 11/17/21 15:18 11/17/21 15:18 Oxygen Delivery Method Room Air Weight: 148 lb 9.465 oz Body Mass Index (BMI) 21.2 Intake & Output: Intake and Output for Last 24 Hours 11/15/21 11/16/21 11/17/21 23:59 23:59 23:59 Intake Total 1380 / 1380 450 / 450 Output Total 0 / 0 Balance 1380 / 1380 450 / 450 Lab / Micro Data Result Diagrams: 11/16/21 05:09 11/16/21 05:09 Micro: Microbiology 11/16/21 12:35 Nasal Secretion SARS-CoV-2 Antigen (Rapid) - Final 11/13/21 Unknown Stool Stool Occult Blood (AMMY) - Final Occult Blood Positive Physical Exam Const alert and no apparent distress Constitutional Narrative: Patient appears stated age General Appearance: cooperative, well kempt and well developed Orientation / Consciousness: awake and confused HEENT normocephalic, head/scalp atraumatic and moist oral mucous membranes Eyes PERRL, EOMs intact bilaterally and conjunctivae normal Neck nuchal rigidity, supple, no JVD, thyroid normal and no carotid bruits General: trachea midline Resp normal respiratory effort, no retractions, no use of accessory muscles and clear to auscultation bilaterally Auscultation: Negative for rales, rhonchi or wheezes Cardio S1 normal heart sound, S2 normal heart sound, no murmurs, no rub and no gallops Cardio Narrative: Heart rate and rhythm is irregular with periods of AV pacing GI normal to inspection, nondistended, normoactive bowel sounds, soft to palpation, non-tender and non-distended Extremity normal to inspection and no clubbing, cyanosis or edema Skin no rashes or lesions noted General Skin Exam: no breakdown Neuro oriented x3, CN's II-XII intact bilaterally, moves all extremities, no focal motor deficits and no sensory deficits noted Sensorium / Orientation: awake and alert Speech: speech normal Psych Psych Narrative: Patient exhibits cognitive impairment, he does answer simple questions appropriately Assessment & Plan Assessment/Plan (1) Ischemic colitis: PLAN: Recommend Bentyl 10 mg p.o. 3 times daily as needed to prevent cramping which would exacerbate his ischemic colitis. No current indication for anticoagulation or antiplatelet therapy at this time. (2) Acute diverticulitis of intestine: PLAN: Recommend to complete an antibiotic course for 10 to 14 days. Charges/Coding Visit Charges Inpatient E&M: 75200 Subs Hosp L2
[2021-11-17] MEDS: Memantine Hydrochloride 10 MG Tablet PO ×2 (10:15→21:30)
[2021-11-17] MEDS: Metoprolol Tartrate 50 MG Tablet PO ×2 (10:15→21:29)
[2021-11-17] MEDS: Ciprofloxacin 500 MG Tablet PO ×2 (10:15→21:29)
--- NOTE | 2021-11-17 10:15 | CASEMGMT ---
RICHELLE called patient's son Wisam and let him know physician had decided to keep patient yesterday. RICHELLE let Wisam know that patient will be discharged to [facility] today. Vy CHRISTIANSON
[2021-11-17] MEDS: Finasteride 5 MG Tablet PO (10:16)
[2021-11-17] MEDS: Mirtazapine 15 MG Tablet 7.5 MG PO (10:16)
--- NOTE | 2021-11-17 14:14 | PCM.TXEXTCAR ---
Diet Diet Order/Speech Therapy: 11/16/21 20:58 Diet: Regular - General Type of Dietary Supplement:: Ensure Clear Is pt able to select menu?: No Diet Comments: 120 ml ensure clear TID with meals Routine Orders/Code Status Routine Lab Work: BMP (in one week) Therapies Weight Bearing: Full weight bearing Physical Therapy: Eval and Treat Occupational Therapy: Eval and Treat Problem/Diagnosis (1) Ischemic colitis: Status: Acute Code(s): K55.9 - Vascular disorder of intestine, unspecified (2) Acute diverticulitis of intestine: Status: Acute Code(s): K57.92 - Diverticulitis of intestine, part unspecified, without perforation or abscess without bleeding (3) Rectal bleed: Status: Acute Code(s): K62.5 - Hemorrhage of anus and rectum Comment: Secondary to ischemic colitis and diverticulitis, recommend patient's Eliquis to be held for 2 more weeks (4) Persistent atrial fibrillation: Status: Chronic Code(s): I48.19 - Other persistent atrial fibrillation Comment: Patient has an AV sequential pacemaker Allergies/Procedures Done in Hospital Allergies No Known Allergies Allergy (Verified 11/04/21 09:28) Procedures: None Type of Care/Length of Stay Estimated LOS: Convalescent Care Less Than 30 days Type of Care Needed: Skilled Rehab Potential: Good Prognosis: Good Additional Orders/Day of Discharge H&P will serve as current which was dated: 11/13/21 Day of Discharge: 11/17/21 Dietary and Speech Recommendations Dietitian Recommendations/Changes: Cardiac diet if PO substantial at meals, will continue regular for now as tolerated. Will continue 120 ml TID w/ meals since PO is suboptimal at meals. Discharge Plan Admission Admit Date/Time: 11/13/21 18:14 Primary Reason for Your Visit: diverticulitis, ischemic colitis Attending Provider: Wisam Benites Primary Care Provider: Bishop Ames [employer] Providers: Malcolm Grant Discharge Orders/Prescriptions Prescriptions: New ciprofloxacin HCl 500 mg Tablet 500 mg PO BID Qty: 0 0RF Rx Instructions: take for 5 days starting 11/18/21 metronidazole 500 mg Tablet 500 mg PO TID Qty: 0 0RF Rx Instructions: take for five days starting 11/18/21 Continued finasteride 5 mg tablet 5 mg PO DAILY donepezil 10 mg tablet 10 mg PO QHS memantine 10 mg Tablet 10 mg PO BID levothyroxine 50 mcg tablet 50 mcg PO DAILY Label Comments: TAKE 1 TABLET BY MOUTH EVERY DAY mirtazapine 7.5 mg tablet 7.5 mg PO DAILY metoprolol tartrate 50 mg tablet 50 mg PO BID losartan 50 mg tablet 50 mg PO DAILY Qty: 30 11RF Held aspirin 81 mg Tablet,Chewable 81 mg PO DAILY Hold Instructions: Resume on 12/01/21. watch for rectal bleeding Eliquis 5 mg tablet 5 mg PO BID Hold Instructions: Resume on 12/01/21. watch for rectal bleeding after resuming Discontinued furosemide [Lasix] 40 mg tablet 40 mg PO DAILY Qty: 30 11RF saw palmetto 160 mg Capsule 160 mg PO DAILY Label Comments: HOME HEALTH NURSE UNSURE OF STRENGTH STATES PT JUST GETS WHAT STRENGTH HE CAN GET OTC. Rx Instructions: give with meal/snack Multivitamin Gummies 200 mcg Tablet,Chewable 1 tab PO DAILY cranberry extract 500 mg Tablet 500 mg PO BID Label Comments: HOME HEALTH NURSE UNSURE OF STRENGTH STATES PT JUST GETS WHAT STRENGTH HE CAN GET OTC. Rx Instructions: administer with meals Referrals / Follow Up: Bishop Ames Chi, MD [Primary Care Provider] - Disposition Disposition (needs filled in before D/C Order can be placed): [facility]
--- NOTE | 2021-11-17 15:02 | PHA.DC.MR ---
Pharmacy Service has performed discharge medication reconciliation for this patient. The patient's discharge medication list was reviewed for discrepancies and discrepancies were resolved. Home Medications donepezil 10 mg tablet 10 mg PO QHS 05/12/20 finasteride 5 mg tablet 5 mg PO DAILY 05/12/20 memantine 10 mg tablet 10 mg PO BID 08/13/21 apixaban 5 mg tablet (Eliquis) 5 mg PO BID BLOOD THINNER 11/13/21 aspirin 81 mg chewable tablet 81 mg PO DAILY HEALTH 11/13/21 levothyroxine 50 mcg tablet 50 mcg PO DAILY THYROID 11/13/21 losartan 50 mg tablet 50 mg PO DAILY #30 tabs 11/13/21 metoprolol tartrate 50 mg tablet 50 mg PO BID HEART 11/13/21 mirtazapine 7.5 mg tablet 7.5 mg PO DAILY APPITTITE 11/13/21 ciprofloxacin HCl 500 mg tablet 500 mg PO BID #0 tabs 11/17/21 metronidazole 500 mg tablet 500 mg PO TID #0 tabs 11/17/21
--- NOTE | 2021-11-17 16:15 | CASEMGMT ---
RICHELLE e-mailed orders and COVID test to [facility] ([facility]). SW requested 530p peanut picker from [facility], but still have not received a confirmation. RICHELLE notified patient, unit secretary, RN, Phillip at [facility], and Josephine at [facility]. Plan: d/c to [facility] under skilled level of care on a PASRR that [facility] had done Tuesday-. Physicians transported patient via van. Vy CHRISTIANSON
--- NOTE | 2021-11-17 18:26 | PCM.DC.SUM ---
Providers Date of Admission: 11/13/21 Date of Discharge: 11/17/21 Primary Care Physician: Dr. Bishop Ames MD Consultations 11/15/21 09:40 Consult: Gastroenterology Routine Consulting Provider: Catrina [facility] Reason for Consult: Ischemic colitis EMERGENT Consult: No MD Notified: Yes Date Notified: 11/13/21 Time Notified: 16:41 Method of Notification: Verbal Reason For Visit: DIVERTICULITIS AND RENAL FAILURE Diagnosis Discharge Diagnosis (1) Ischemic colitis: Status: Resolved Code(s): K55.9 - Vascular disorder of intestine, unspecified (2) Acute diverticulitis of intestine: Status: Resolved Code(s): K57.92 - Diverticulitis of intestine, part unspecified, without perforation or abscess without bleeding Plan 1. Acute diverticulitis of the sigmoid colon #2 ischemic colitis #3 dementia #4 acute kidney injury #5 persistent atrial fibrillation #6 essential hypertension #7 bright red rectal bleeding secondary to #1 and #2 #8 hypothyroidism #9 moderate aortic stenosis #10 hyperlipidemia Medications at Discharge Home Medications donepezil 10 mg tablet 10 mg PO QHS 05/12/20 finasteride 5 mg tablet 5 mg PO DAILY 05/12/20 memantine 10 mg tablet 10 mg PO BID 08/13/21 apixaban 5 mg tablet (Eliquis) 5 mg PO BID BLOOD THINNER 11/13/21 aspirin 81 mg chewable tablet 81 mg PO DAILY HEALTH 11/13/21 levothyroxine 50 mcg tablet 50 mcg PO DAILY THYROID 11/13/21 losartan 50 mg tablet 50 mg PO DAILY #30 tabs 11/13/21 metoprolol tartrate 50 mg tablet 50 mg PO BID HEART 11/13/21 mirtazapine 7.5 mg tablet 7.5 mg PO DAILY APPITTITE 11/13/21 atorvastatin 20 mg tablet (Lipitor) 20 mg PO DAILY #1 TAB 11/17/21 ciprofloxacin HCl 500 mg tablet 500 mg PO BID #0 tabs 11/17/21 metronidazole 500 mg tablet 500 mg PO TID #0 tabs 11/17/21 Hospital Course Operations None Procedures None Summary of Care Provided Minutes Spent on Discharge: 32 Hospital Course: This 86-year-old white male was seen in the emergency room at [facility] with complaints of multiple bowel movements with bright red blood in them. He denied any abdominal pain. Patient was found to have a hemoglobin of 14.5 in the emergency room, his BNP was elevated at 2700, creatinine was 1.76. CT of the abdomen and pelvis indicated diverticulitis in the sigmoid colon, patient was admitted for acute sigmoid diverticulitis and lower GI bleeding from ischemic colitis and acute sigmoid diverticulitis. He was also admitted for acute kidney injury, patient's Eliquis was held, he was placed on IV fluids, he was seen in consultation by gastroenterology who recommended monitoring labs and placing the patient on IV antibiotics. Patient's rectal bleeding subsided during his hospitalization, he was seen by PT and OT and it was felt he would benefit from short-term placement in a jail facility-patient agreed to this. On 11/17/2021, patient was seen and examined: alert and no apparent distress Constitutional Narrative: Patient appears stated age General Appearance: cooperative, well kempt and well developed Orientation / Consciousness: awake and confused HEENT normocephalic, head/scalp atraumatic and moist oral mucous membranes Eyes PERRL, EOMs intact bilaterally and conjunctivae normal Neck nuchal rigidity, supple, no JVD, thyroid normal and no carotid bruits General: trachea midline Resp normal respiratory effort, no retractions, no use of accessory muscles and clear to auscultation bilaterally Auscultation: Negative for rales, rhonchi or wheezes Cardio S1 normal heart sound, S2 normal heart sound, no murmurs, no rub and no gallops Cardio Narrative: Heart rate and rhythm is irregular with periods of AV pacing GI normal to inspection, nondistended, normoactive bowel sounds, soft to palpation, non-tender and non-distended Extremity normal to inspection and no clubbing, cyanosis or edema Skin no rashes or lesions noted General Skin Exam: no breakdown Neuro oriented x3, CN's II-XII intact bilaterally, moves all extremities, no focal motor deficits and no sensory deficits noted Sensorium / Orientation: awake and alert Speech: speech normal Psych Psych Narrative: Patient exhibits cognitive impairment, he does answer simple questions appropriately Patient was discharged to jail facility in stable condition on 11/17/2021. Weight / BMI Weight Weight: 67.4 kg Body Mass Index (BMI) 21.2 ABG / Lab / Microbiology Data Result Diagrams: 11/16/21 05:09 11/16/21 05:09 Microbiology: Microbiology 11/16/21 12:35 Nasal Secretion SARS-CoV-2 Antigen (Rapid) - Final 11/13/21 Unknown Stool Stool Occult Blood (AMMY) - Final Occult Blood Positive Meaningful Use Info Meaningful Use Diagnoses (Choose all that apply): None applicable Discharge Plan Admission Admit Date/Time: 11/13/21 18:14 Primary Reason for Your Visit: diverticulitis, ischemic colitis Attending Provider: Wisam Benites Primary Care Provider: Bishop Ames [facility] [employer] Providers: Malcolm Grant Discharge Orders/Prescriptions Prescriptions: New ciprofloxacin HCl 500 mg Tablet 500 mg PO BID Qty: 0 0RF Rx Instructions: take for 5 days starting 11/18/21 metronidazole 500 mg Tablet 500 mg PO TID Qty: 0 0RF Rx Instructions: take for five days starting 11/18/21 atorvastatin [Lipitor] 20 mg tablet 20 mg PO DAILY Qty: 1 0RF Continued finasteride 5 mg tablet 5 mg PO DAILY donepezil 10 mg tablet 10 mg PO QHS memantine 10 mg Tablet 10 mg PO BID levothyroxine 50 mcg tablet 50 mcg PO DAILY Label Comments: TAKE 1 TABLET BY MOUTH EVERY DAY mirtazapine 7.5 mg tablet 7.5 mg PO DAILY metoprolol tartrate 50 mg tablet 50 mg PO BID losartan 50 mg tablet 50 mg PO DAILY Qty: 30 11RF Held aspirin 81 mg Tablet,Chewable 81 mg PO DAILY Hold Instructions: Resume on 12/01/21. watch for rectal bleeding Eliquis 5 mg tablet 5 mg PO BID Hold Instructions: Resume on 12/01/21. watch for rectal bleeding after resuming Discontinued furosemide [Lasix] 40 mg tablet 40 mg PO DAILY Qty: 30 11RF saw palmetto 160 mg Capsule 160 mg PO DAILY Label Comments: HOME HEALTH NURSE UNSURE OF STRENGTH STATES PT JUST GETS WHAT STRENGTH HE CAN GET OTC. Rx Instructions: give with meal/snack Multivitamin Gummies 200 mcg Tablet,Chewable 1 tab PO DAILY cranberry extract 500 mg Tablet 500 mg PO BID Label Comments: HOME HEALTH NURSE UNSURE OF STRENGTH STATES PT JUST GETS WHAT STRENGTH HE CAN GET OTC. Rx Instructions: administer with meals Referrals / Follow Up: Bishop Ames Chi, MD [Primary Care Provider] - Disposition Disposition (needs filled in before D/C Order can be placed): Residential Facility Charges/Coding Visit Charges Inpatient E&M: 51219 Disch Hosp
[2021-11-17] MEDS: Donepezil HCl 10 MG Tablet PO (21:29)
== END 2021-11-17 22:02 | disposition skilled nursing facility (03) | DRG 391 ==
LOC: ED 18:25 → PCU 18:38
PROVIDERS: Nurse Practitioner; Admitting Provider Family Medicine; Emergency Provider Emergency Medicine; PCP Family Medicine Geriatric Medicine; Visit Provider Internal Medicine
DX: K57.32 Diverticulitis of large intestine without perforation or abscess without bleeding (principal); K55.039 Acute (reversible) ischemia of large intestine, extent unspecified; N17.9 Acute kidney failure, unspecified; I50.32 Chronic diastolic (congestive) heart failure; I48.19 Other persistent atrial fibrillation; K62.5 Hemorrhage of anus and rectum; I11.0 Hypertensive heart disease with heart failure; F03.90 Unspecified dementia, unspecified severity, without behavioral disturbance, psychotic disturbance, mood disturbance, and anxiety; I48.91 Unspecified atrial fibrillation; I73.9 Peripheral vascular disease, unspecified; E03.9 Hypothyroidism, unspecified; E78.5 Hyperlipidemia, unspecified; I35.0 Nonrheumatic aortic (valve) stenosis; E87.6 Hypokalemia; Z95.0 Presence of cardiac pacemaker; Z79.01 Long term (current) use of anticoagulants; Z79.82 Long term (current) use of aspirin; Z87.891 Personal history of nicotine dependence
CPT/HCPCS: 36415; 71045; 72100; 74176; 80048; 81001; 82274; 83605; 83735; 83880; 84100; 85014; 85018; 85025; 85610; 86850; 86900; 86901; 87426; 93005; 97110; 97162; 97166; 97530; 97535; 97802; 99285; J7040; J7050; A4216; J0744

== ENCOUNTER → 2021-11-23 | Outpatient (REF) | payer SELFPAY ==
[2021-11-23 08:37] LABS: Hematocrit 38.3 % (40-54); Hemoglobin 12.2 g/dL (13.0-16.5); Mean Corp Hgb Conc 31.9 g/dL (32-36); Mean Corpuscular Volume 106.7 fL (80-94); Mean Platelet Vol. 11.8 fl (6.2-12.0); POSITIVE MORPHOLOGY YES; Platelet Count 231 K/mm3 (150-450); RBC Distribution Width CV 16.6 % (11.6-14.6); RBC Distribution Width SD 65.3 fl (35.1-43.9); Red Blood Count 3.59 M/mm3 (4.6-6.2); White Blood Count 9.5 K/mm3 (4.4-11.0)
[2021-11-23 08:50] LABS: Anion Gap 6 (5-15); BUN 28 mg/dL (7-18); BUN/Creat Ratio 19.4 RATIO (10-20); Calcium,Total 8.6 mg/dL (8.5-10.1); Chloride 113 mmol/L (98-107); Creatinine, Serum 1.44 mg/dL (0.70-1.30); EST Glomerular Filtration Rate 49 mL/min (>60); Est Glom Filt Rate - Afr Amer 60 mL/min (>60); Glucose 122 mg/dL (74-106); Potassium 4.3 mmol/L (3.5-5.1); Sodium Level 143 mmol/L (136-145)
== END | disposition home or self-care (01) ==
LOC: OLS.WCC 04:00
PROVIDERS: PCP Family Medicine Geriatric Medicine; Referring Provider Family Medicine; Visit Provider Family Medicine
DX: I11.0 Hypertensive heart disease with heart failure (principal); F03.90 Unspecified dementia, unspecified severity, without behavioral disturbance, psychotic disturbance, mood disturbance, and anxiety; I50.9 Heart failure, unspecified; I48.91 Unspecified atrial fibrillation; E78.5 Hyperlipidemia, unspecified; E03.9 Hypothyroidism, unspecified
CPT/HCPCS: 36415; 80048; 85027

== ENCOUNTER → 2021-12-28 | Outpatient (REF) | payer MEDICARE, OTHER, SELFPAY ==
[2021-12-28 08:21] LABS: Hematocrit 37.5 % (40-54); Hemoglobin 12.5 g/dL (13.0-16.5); Mean Corp Hgb Conc 33.3 g/dL (32-36); Mean Corpuscular Hgb 34.6 pg (27.0-32.0); Mean Corpuscular Volume 103.9 fL (80-94); Mean Platelet Vol. 12.3 fl (6.2-12.0); Platelet Count 146 K/mm3 (150-450); RBC Distribution Width CV 15.7 % (11.6-14.6); RBC Distribution Width SD 60.7 fl (35.1-43.9); Red Blood Count 3.61 M/mm3 (4.6-6.2); White Blood Count 7.6 K/mm3 (4.4-11.0)
[2021-12-28 08:46] LABS: Anion Gap 6 (5-15); BUN 25 mg/dL (7-18); BUN/Creat Ratio 24.5 RATIO (10-20); Chloride 110 mmol/L (98-107); Cholesterol 91 mg/dL (200); Creatinine, Serum 1.02 mg/dL (0.70-1.30); EST Glomerular Filtration Rate 74 mL/min (>60); Est Glom Filt Rate - Afr Amer 89 mL/min (>60); Glucose 117 mg/dL (74-106); High Density Lipoprotein 47 mg/dL; Potassium 3.7 mmol/L (3.5-5.1); Sodium Level 140 mmol/L (136-145); Thyroid Stim Hormone (TSH) 4.34 uIU/mL (0.358-3.74); Triglycerides 75 mg/dL; Very Low Density Lipoprotein 15 mg/dL (5-40)
== END ==
LOC: OLS.WCC 04:00
PROVIDERS: PCP Family Medicine Geriatric Medicine; Referring Provider Family Medicine; Visit Provider Family Medicine
DX: I11.0 Hypertensive heart disease with heart failure (principal); F03.90 Unspecified dementia, unspecified severity, without behavioral disturbance, psychotic disturbance, mood disturbance, and anxiety; I50.9 Heart failure, unspecified; I48.91 Unspecified atrial fibrillation; N40.0 Benign prostatic hyperplasia without lower urinary tract symptoms; E78.5 Hyperlipidemia, unspecified; Z79.899 Other long term (current) drug therapy
CPT/HCPCS: 36415; 80048; 80061; 84443; 85027

== ENCOUNTER → 2021-12-30 | Outpatient (CLI) | payer MEDICARE, OTHER, SELFPAY ==
--- NOTE | 2021-12-30 13:11 | ECHOD_ITS ---
Reason For Study: DYSPNEA Procedure This was a 2D Doppler, Color Flow transthoracic echocardiogram. The exam was of adequate technical quality. Exam performed in department. Left Ventricle Normal LV size. Severe global left ventricular systolic dysfunction. The estimated ejection fraction is 25 %. Stage 2 diastolic dysfunction. Right Ventricle Normal RV size. ICD or pacer leads identified within the right ventricle. Normal systolic function. Atria The left atrium is moderately enlarged. The right atrium is mildly enlarged. ICD or pacer leads identified within the right atrium. No doppler evidence for ASD. Mitral Valve There is severe mitral annular calcification. Extension of the mitral annular calcification onto the mitral valve leaflets. The mitral papillary muscle appears thickened and/or calcified. Mild (1+) mitral valve insufficiency. Tricuspid Valve Normal tricuspid valve. Moderate (2+) tricuspid valve insufficiency. Right ventricular systolic pressure estimated to be 42 mmHg. Aortic Valve The aortic valve is not well visualized, however, based upon the images obtained there appears to be diffuse thickening, calcification, and partial restriction. Moderate aortic stenosis. Pulmonic Valve The pulmonic valve is not well visualized. Great Vessels Normal sized aortic root. Pericardium/Pleural No pericardial effusion. MMode/2D Measurements & Calculations LVIDd: 4.2 cm IVSd: 2.3 cm LVOT diam: 2.0 cm LVIDs: 3.9 cm LVPWd: 2.1 cm LVOT area: 3.1 cm2 RVDd: 3.9 cm FS: 7.2 % Ao root diam: 3.5 cm LAV(MOD-bp): 118.2 ml LVAd ap4: 34.1 cm2 LAV(MOD-bp) Indexed: 62.9 ml/m2 LVLd ap4: 8.6 cm LAV(MOD-sp2): 107.7 ml EDV(MOD-sp4): 109.6 ml LAV(MOD-sp4): 124.5 ml EDV(sp4-el): 115.1 ml LVAs ap4: 29.2 cm2 LVLs ap4: 8.2 cm ESV(MOD-sp4): 85.2 ml ESV(sp4-el): 88.7 ml EF(MOD-sp4): 22.3 % EF(sp4-el): 23.0 % SV(MOD-sp4): 24.4 ml SV(sp4-el): 26.4 ml LA A4 area: 33.8 cm2 LA dimension(2D): 4.2 cm RA A4 area: 21.2 cm2 Doppler Measurements & Calculations MV E max nando: 150.8 cm/sec Ao V2 max: 287.2 cm/sec LV V1 max: 74.4 cm/sec Ao max P.2 mmHg LV V1 max P.3 mmHg Ao V2 mean: 207.9 cm/sec LV V1 mean P.4 mmHg Ao mean P.3 mmHg LV V1 mean: 54.9 cm/sec Ao V2 VTI: 54.8 cm LV V1 VTI: 15.1 cm MICHELLE(I,D): 0.85 cm2 MICHELLE(V,D): 0.80 cm2 SV(LVOT): 46.6 ml PA V2 max: 81.9 cm/sec TR max nando: 311.7 cm/sec TR max P.9 mmHg ECHO/Echo Complete Interpretation Summary Severe global left ventricular systolic dysfunction. The estimated ejection fraction is 25 %. The left atrium is moderately enlarged. The right atrium is mildly enlarged. There is severe mitral annular calcification. Extension of the mitral annular calcification onto the mitral valve leaflets. The mitral papillary muscle appears thickened and/or calcified. Mild (1+) mitral valve insufficiency. Moderate (2+) tricuspid valve insufficiency. The aortic valve is not well visualized, however, based upon the images obtaine d there appears to be diffuse thickening, calcification, and partial restriction. Moderate aortic stenosis. Right ventricular systolic pressure estimated to be 42 mmHg. Stage 2 diastolic dysfunction. Ordering Physician: Karol Romero Referring Physician: Ramirez Toth Performed By: Cherry Castillo RCS
== END | disposition home or self-care (01) ==
LOC: CVS 13:09
PROVIDERS: PCP Family Medicine Geriatric Medicine; Referring Provider Internal Medicine Cardiovascular Disease; Visit Provider Internal Medicine Cardiovascular Disease
DX: R06.02 Shortness of breath (principal); I35.2 Nonrheumatic aortic (valve) stenosis with insufficiency; I11.9 Hypertensive heart disease without heart failure; E78.5 Hyperlipidemia, unspecified; I49.9 Cardiac arrhythmia, unspecified; Z95.2 Presence of prosthetic heart valve
CPT/HCPCS: 93306

== ENCOUNTER → 2022-01-25 | Outpatient (REF) | payer MEDICARE, OTHER, SELFPAY ==
[2022-01-25 08:15] LABS: Hemoglobin 11.4 g/dL (13.0-16.5); Mean Corp Hgb Conc 32.6 g/dL (32-36); Mean Corpuscular Hgb 33.1 pg (27.0-32.0); Mean Corpuscular Volume 101.7 fL (80-94); Mean Platelet Vol. 11.4 fl (6.2-12.0); Platelet Count 175 K/mm3 (150-450); RBC Distribution Width CV 15.1 % (11.6-14.6); RBC Distribution Width SD 56.9 fl (35.1-43.9); Red Blood Count 3.44 M/mm3 (4.6-6.2); White Blood Count 7.8 K/mm3 (4.4-11.0)
[2022-01-25 08:39] LABS: Anion Gap 9 (5-15); BUN 22 mg/dL (7-18); Calcium,Total 8.8 mg/dL (8.5-10.1); Chloride 109 mmol/L (98-107); Creatinine, Serum 0.92 mg/dL (0.70-1.30); EST Glomerular Filtration Rate 83 mL/min (>60); Est Glom Filt Rate - Afr Amer 101 mL/min (>60); Glucose 124 mg/dL (74-106); Potassium 3.2 mmol/L (3.5-5.1); Sodium Level 141 mmol/L (136-145)
== END ==
LOC: OLS.WCC 05:00
PROVIDERS: PCP Family Medicine Geriatric Medicine; Visit Provider Family Medicine
DX: I48.91 Unspecified atrial fibrillation (principal); I10 Essential (primary) hypertension
CPT/HCPCS: 36415; 80048; 85027

== ENCOUNTER → 2022-02-22 | Outpatient (REF) | payer MEDICARE, OTHER, SELFPAY ==
[2022-02-22 07:35] LABS: Hematocrit 35.8 % (40-54); Mean Corp Hgb Conc 33.5 g/dL (32-36); Mean Corpuscular Hgb 32.3 pg (27.0-32.0); Mean Corpuscular Volume 96.5 fL (80-94); Mean Platelet Vol. 12.3 fl (6.2-12.0); Platelet Count 201 K/mm3 (150-450); RBC Distribution Width CV 15.2 % (11.6-14.6); RBC Distribution Width SD 53.1 fl (35.1-43.9); Red Blood Count 3.71 M/mm3 (4.6-6.2); White Blood Count 7.3 K/mm3 (4.4-11.0)
[2022-02-22 08:30] LABS: Anion Gap 12 (5-15); BUN 16 mg/dL (7-18); Calcium,Total 8.4 mg/dL (8.5-10.1); Chloride 106 mmol/L (98-107); Creatinine, Serum 0.94 mg/dL (0.70-1.30); EST Glomerular Filtration Rate 81 mL/min (>60); Est Glom Filt Rate - Afr Amer 97 mL/min (>60); Glucose 123 mg/dL (74-106); Potassium 2.6 mmol/L (3.5-5.1); Sodium Level 146 mmol/L (136-145)
== END ==
LOC: OLS.WCC 05:00
PROVIDERS: PCP Family Medicine Geriatric Medicine; Visit Provider Family Medicine
DX: F03.90 Unspecified dementia, unspecified severity, without behavioral disturbance, psychotic disturbance, mood disturbance, and anxiety (principal); I10 Essential (primary) hypertension; E78.5 Hyperlipidemia, unspecified; Z79.899 Other long term (current) drug therapy
CPT/HCPCS: 80048; 85027

== ENCOUNTER → 2022-02-25 | Outpatient (REF) | payer MEDICARE, OTHER, SELFPAY ==
[2022-02-25 08:37] LABS: Hematocrit 37.1 % (40-54); Hemoglobin 12.1 g/dL (13.0-16.5); Mean Corp Hgb Conc 32.6 g/dL (32-36); Mean Corpuscular Hgb 32.3 pg (27.0-32.0); Mean Corpuscular Volume 98.9 fL (80-94); Mean Platelet Vol. 12.4 fl (6.2-12.0); Platelet Count 231 K/mm3 (150-450); RBC Distribution Width CV 15.6 % (11.6-14.6); RBC Distribution Width SD 56.2 fl (35.1-43.9); Red Blood Count 3.75 M/mm3 (4.6-6.2); White Blood Count 7.6 K/mm3 (4.4-11.0)
[2022-02-25 09:08] LABS: Anion Gap 9 (5-15); BUN 19 mg/dL (7-18); BUN/Creat Ratio 19.6 RATIO (10-20); Calcium,Total 8.8 mg/dL (8.5-10.1); Chloride 107 mmol/L (98-107); Creatinine, Serum 0.97 mg/dL (0.70-1.30); EST Glomerular Filtration Rate 78 mL/min (>60); Est Glom Filt Rate - Afr Amer 94 mL/min (>60); Glucose 93 mg/dL (74-106); Potassium 2.8 mmol/L (3.5-5.1); Sodium Level 145 mmol/L (136-145)
== END ==
LOC: OLS.WCC 05:00
PROVIDERS: PCP Family Medicine Geriatric Medicine; Visit Provider Family Medicine
DX: F03.90 Unspecified dementia, unspecified severity, without behavioral disturbance, psychotic disturbance, mood disturbance, and anxiety (principal); U07.1 COVID-19; I10 Essential (primary) hypertension; Z79.899 Other long term (current) drug therapy
CPT/HCPCS: 36415; 80048; 85027

== ENCOUNTER → 2022-03-01 | Outpatient (REF) | payer MEDICARE, OTHER, SELFPAY ==
[2022-03-01 08:37] LABS: Anion Gap 6 (5-15); Chloride 108 mmol/L (98-107); Potassium 3.4 mmol/L (3.5-5.1); Sodium Level 144 mmol/L (136-145)
== END ==
LOC: OLS.WCC 05:00
PROVIDERS: PCP Family Medicine Geriatric Medicine; Visit Provider Family Medicine
DX: I48.91 Unspecified atrial fibrillation (principal); I10 Essential (primary) hypertension; Z79.899 Other long term (current) drug therapy
CPT/HCPCS: 36415; 80051